=== PATIENT | female | born 1990 | race Caucasian/White ===

== ENCOUNTER 2024-08-21 08:42 | Emergency (ER) | payer BC, SELFPAY ==
[2024-08-21] VITALS (15 sets, daily range): BP systolic 128–151; BP diastolic 82–103; PULSE 100–103; RESP 15–19; TEMP 36.4; O2SAT 98–100
[2024-08-21 09:30] LABS: BEDSIDEPREGUCG Negative (Negative)
[2024-08-21 09:36] LABS: Basophils Absolute Auto 0.1 K/mm3 (0.0-0.1); Basophils Percent Auto 0.6 % (0.2-1.2); Eosinophils Percent Auto 0.2 % (0-4.4); Hemoglobin 12.7 g/dL (12.0-15.0); Immature Granulocyte Absolute 0.03 K/mm3 (0.00-0.031); Immature Granulocyte Percent A 0.4 % (0-0.5); Lymphocytes Absolute Auto 1.61 K/mm3 (0.9-3.2); Lymphocytes Percent Auto 18.9 % (18.3-44.2); Mean Corpuscular HGB Conc 32.6 g/dl (32-36); Mean Corpuscular Hemoglobin 26.7 pg (26-34); Mean Corpuscular Volume 82.1 fl (80-100); Monocytes Absolute Auto 0.5 K/mm3 (0.1-0.6); Monocytes Percent Auto 6.2 % (2.6-8.5); Neutrophils Absolute Auto 6.3 K/mm3 (1.3-6.7); Neutrophils Percent Auto 73.7 % (45.5-73.1); Platelet Count Result 344 k/mm3 (150-375); Red Blood Count 4.75 M/mm3 (4.2-5.4); Red Cell Distribution Width 13.1 % (11.5-14.5); White Blood Count 8.5 K/mm3 (4.5-10.0)
[2024-08-21 09:47] LABS: Alanine Aminotransferase 16 U/L (6-35); Albumin Level 5.1 g/dL (3.5-5.1); Alkaline Phosphatase 72 U/L (38-126); Anion Gap 18 mmol/L (4-12); Aspartate Amino Transferase 21 U/L (14-36); Blood Urea Nitrogen 12 mg/dL (7-17); Calcium 9.9 mg/dL (8.4-10.2); Carbon Dioxide 22 mmol/L (22-30); Chloride 100 mmol/L (98-107); Estimated CRCL calculation 124 ml/min; Estimated Glomerular Filt Rate > 60; Glucose 99 mg/dL (65-110); Potassium 3.4 mmol/L (3.4-5.0); Sodium 140 mmol/L (137-145)
[2024-08-21 09:50] LABS: Ethanol < 10 mg/dL (<10)
[2024-08-21 09:52] LABS: Add Urine Microscopic? YES; Appearance Urine Clear (Clear); Bacteria Urine None Seen /hpf; Bilirubin Urine Negative (Negative); Blood Urine Negative (Negative); Color Urine Dark Yellow (Yellow); Glucose Urine UA Negative (Negative); Ketones Urine 3+ mg/dL (Negative); Leukocyte Esterase Ur Negative LEU/UL (Negative); Need Manual Microscopic Reviewed; Nitrate Urine Negative (Negative); Non Pathogenic Casts 0-2; Protein Urine Trace mg/dL (Negative); RBC Urine 0-2 /hpf (0-2); Specific Grav Ur 1.031 (1.001-1.035); Squamous Epithelial Cell Urine Occasional /hpf (Few); Urobilinogen Urine 0.2 mg/dL (<2.0); WBC Urine 0-5 /hpf (0-3)
[2024-08-21 10:13] LABS: SARS-CoV-2 RNA PCR Negative (Negative)
[2024-08-21 10:18] LABS: Amphetamine Screen Urine Negative (Negative); Barbiturate Screen Urine Negative (Negative); Benzodiazepines Screen Urine Negative (Negative); Cannabinoid Screen Urine Negative (Negative); Cocaine Screen Urine Negative (Negative); Methadone Screen Urine Negative (Negative); Opiate Screen Urine Negative (Negative); Phencyclidine Screen Urine Negative (Negative)
--- NOTE | 2024-08-21 10:42 | ED_ITS ---
HPI - Psych General Chief Complaint: Psychiatric Symptoms Stated Complaint: out of it psychosis not sleeping Time Seen by Provider: 08/21/24 09:45 History of Present Illness HPI Narrative: Patient is a 34-year-old female who presents to the ER with complaints of anxiety and insomnia. She reports she has not slept more than 2 hours at a time in over 3 days. Patient identifies that her line of work has caused increased stress recently. She reports in March it was found that she has a neuroendocrine (pancreatic) tumor. Patient reports her tumor was resected and her gallbladder was removed at the same time. She reports she still has a ROSE drain in her abdomen, but is followed by Oncology at an outside facility. Patient denies any suicidal or homicidal ideation. She denies any chest pain, shortness of breath, back pain, recent fevers. Patient denies any use of drugs or alcohol. Related Data Allergies Allergy/AdvReac Type Severity Reaction Status Date / Time Penicillins Allergy Hives Verified 08/21/24 08:54 Review of Systems 2 Review of Systems: All systems reviewed & are unremarkable except as noted in HPI and below Exam 2 Narrative: GENERAL: Well appearing, well-nourished, non-toxic, in no acute distress. HEAD: Normocephalic, atraumatic. NECK: Supple. No adenopathy, no masses. RESPIRATORY: Airway patent, respirations nonlabored. Clear to auscultation bilaterally, no rales, rhonchi, wheezing. CARDIOVASCULAR: Regular rate and rhythm without murmurs, rubs, or gallops. Peripheral pulses 2+ and equal bilaterally. ABDOMINAL: Soft, nontender, nondistended, no hepatosplenomegaly. Normoactive BS. MUSCULOSKELETAL: Moves all extremities. Strength/ROM intact without gross deformities. SKIN: Warm, dry, normal color. No rashes. NEURO: A&O X3. Speech clear. Cranial nerves II-XII intact. No ataxic movements. PSYCHIATRIC: Very flat affect. Course Vital Signs Vital signs: Vital Signs Temperature 36.4 C L 08/21/24 08:45 Pulse Rate 103 H 08/21/24 08:45 Respiratory Rate 15 08/21/24 08:45 Blood Pressure 142/98 H 08/21/24 08:45 Pulse Oximetry 100 08/21/24 08:45 Oxygen Delivery Room Air 08/21/24 08:45 Temperature 36.4 C L 08/21/24 08:45 Pulse Rate 103 H 08/21/24 08:45 Respiratory Rate 15 08/21/24 08:45 Blood Pressure 128/82 08/21/24 11:31 Pulse Oximetry 98 08/21/24 11:31 Oxygen Delivery Room Air 08/21/24 08:45 MDM - Psych MDM Narrative Medical decision making narrative: Patient is a 34-year-old female who presents to the ER with complaints of anxiety and insomnia. She reports she has not slept more than 2 hours at a time in over 3 days. Patient identifies that her line of work has caused increased stress recently. She reports in March it was found that she has a neuroendocrine (pancreatic) tumor. Patient reports her tumor was resected and her gallbladder was removed at the same time. She reports she still has a ROSE drain in her abdomen, but is followed by Oncology at an outside facility. Patient denies any suicidal or homicidal ideation. She denies any chest pain, shortness of breath, back pain, recent fevers. Labs Ordered: CBC, CMP, TSH, UA, UDS, ethanol, COVID Imaging Ordered: None necessary Medications Ordered: Results: Patient's urine and CMP indicated mild dehydration Diagnosis: Depression, anxiety, insomnia, mild dehydration Consults: Psychiatry intake-advised pt follow-up with psychiatry outpatient Patient Education/Shared MDM: Results of blood work shared with patient. She endorses improvement following medication administration. Patient strongly advised to maintain hydration status upon discharge and follow-up with her PCP as soon as possible. She also has plans to follow-up with a psychiatrist as an outpatient. She will be discharged home with a prescription for Ativan 0.5 mg to help with her anxiety and insomnia until she sees her psychiatrist. Strict return precautions provided. Patient verbalized understanding is in agreement with plan. Vital signs stable at time of discharge. All questions answered. Differential Diagnosis Differential diagnosis: Likely acute psychosis, suicidal ideation, bipolar disorder, depression, drug-induced psychotic disorder and acute anxiety Lab Data Attestation: I reviewed the patient's lab results. 08/21/24 09:23 08/21/24 09:23 Labs: Lab Results 08/21/24 08/21/24 Range/Units 09:23 09:24 WBC 8.5 (4.5-10.0) K/mm3 RBC 4.75 (4.2-5.4) M/mm3 Hgb 12.7 (12.0-15.0) g/dL Hct 39.0 (37.0-47.0) % MCV 82.1 (80-100) fl MCH 26.7 (26-34) pg MCHC 32.6 (32-36) g/dl RDW 13.1 (11.5-14.5) % Plt Count 344 (150-375) k/mm3 MPV 11.0 H (7.4-10.4) fl Immature Gran % (Auto) 0.4 (0-0.5) % Neut % (Auto) 73.7 H (45.5-73.1) % Lymph % (Auto) 18.9 (18.3-44.2) % [place] % (Auto) 6.2 (2.6-8.5) % Eos % (Auto) 0.2 (0-4.4) % Baso % (Auto) 0.6 (0.2-1.2) % Lymph # (Auto) 1.61 (0.9-3.2) K/mm3 [place] # (Auto) 0.5 (0.1-0.6) K/mm3 Eos # (Auto) 0.0 (0-0.3) K/mm3 Baso # (Auto) 0.1 (0.0-0.1) K/mm3 Abs Immat Gran (auto) 0.03 (0.00-0.031) K/mm3 Absolute Neuts (auto) 6.3 (1.3-6.7) K/mm3 Absolute Nucleated RBC 0.000 (0.0-0.012) K/mm3 Nucleated RBC % 0.0 (0.0-0.2) % Sodium 140 (137-145) mmol/L Potassium 3.4 (3.4-5.0) mmol/L Chloride 100 (98-107) mmol/L Carbon Dioxide 22 (22-30) mmol/L Anion Gap 18 H (4-12) mmol/L BUN 12 (7-17) mg/dL Creatinine 0.51 L (0.7-1.0) mg/dL Estim Creat Clear Calc 124 ml/min Estimated GFR > 60 (59 - ) Glucose 99 (65-110) mg/dL Calcium 9.9 (8.4-10.2) mg/dL Total Bilirubin 1.0 (0.2-1.3) mg/dL AST 21 (14-36) U/L ALT 16 (6-35) U/L Alkaline Phosphatase 72 (38-126) U/L Total Protein 8.0 (6.3-8.2) g/dL Albumin 5.1 (3.5-5.1) g/dL TSH (Reflex) 1.200 (0.465-4.68) uIU/mL Urine Color Dark yellow (Yellow) Urine Appearance Clear (Clear) Urine pH 6.0 (5.0-9.0) Ur Specific [place] 1.031 (1.001-1.035) Urine Protein Trace (Negative) mg/dL Urine Glucose (UA) Negative (Negative) mg/dL Urine Ketones 3+ H (Negative) mg/dL Ur Blood (Man) Negative (Negative) Urine Nitrate Negative (Negative) Urine Bilirubin Negative (Negative) Urine Urobilinogen 0.2 (<2.0) mg/dL Add Ur Microanalysis Reviewed Leukocyte Esterase Rfl Negative (Negative) ANDRE/UL Urine RBC 0-2 (0-2) /hpf Urine WBC 0-5 (0-3) /hpf Ur Squamous Epith Cells Occasional (Few) /hpf Urine Bacteria None seen /hpf Urine Casts 0-2 POC Urine HCG, Qual Negative (Negative) Urine Opiates Screen Negative (Negative) Urine Methadone Screen Negative (Negative) Ur Barbiturates Screen Negative (Negative) Ur Phencyclidine Scrn Negative (Negative) Ur Amphetamine Screen Negative (Negative) U Benzodiazepines Scrn Negative (Negative) Urine Cocaine Screen Negative (Negative) U Cannabinoids Screen Negative (Negative) Ethyl Alcohol < 10 (<10) mg/dL SARS-CoV-2 RNA (RT-PCR) Negative (Negative) Discharge Plan Discharge Clinical Impression: Depression, Anxiety, Insomnia, Dehydration, mild Patient Disposition: Home, Self-Care Condition: Stable Instructions: Depression (ED), Insomnia (ED), Anxiety (ED), Antibiotic Form Additional Instructions: Please return to the ER with any worsening symptoms. Follow-up with your primary care provider as soon as possible. Please follow-up with Psychiatry as discussed. Take all medications as prescribed, including regularly scheduled medications. Patient Language: Algerian Prescriptions: New hydroxyzine HCl 25 mg tablet 25 mg PO TID PRN (Reason: anxiety) Qty: 20 0RF lorazepam [Ativan] 0.5 mg tablet 0.5 mg PO TID PRN (Reason: anxiety) Qty: 10 0RF Follow-up/Referrals: UNKNOWN,DOCTOR [Primary Care Provider] - Stand Alone Forms: Work/School Release IP Time of Disposition: 12:56
--- OUTSIDE RECORDS SUMMARY | 2024-08-21 11:35 | XMS_ITS | Clinical Summary ---
Author Organization [facility] [employer] Address [address] [place] [address] Care Team Providers Care Chain Pegger Name Role Phone Mayco Mixon DO Primary Care Provider [phone] Source Comments [facility] [employer],non-owned Affiliates and Associated Physician Practices is amultiple site organization consisting of ambulatory clinics and hospital sitesin [place], [place], [place] and [place]. This disclosure is being madepursuant to the Care Everywhere program and may not contain all information available regarding this patient. Last updated 18.[facility] [employer] Allergies Active Allergy Reactions Criticality Noted Date Comments Cefdinir Urticaria,Rash Medium 09/27/2022 Penicillins Urticaria Medium 09/24/2022 Medications * Be aware that medications may not be up to date on this document. Alwaysverify current medications with the patient. Medication Sig Dispensed Refills Start Date End Date Status acetaminophen (Tylenol) 500 MG tablet Take 2 (two) tablets by mouth every 6 hours Maximum allowable Acetaminophen amount = 4 Grams (4000 mg) / 24 hours. 30 tablet 08/09/19 25 Active acetaminophen (Tylenol) 500 MG tablet Take 1 (one) tablet by mouth every 4 hours as needed Maximum allowable Acetaminophen amount = 4 Grams (4000 mg) / 24 hours. 05/19/20 24 025 Discontinued(Do se Adjustment) oxyCODONE (Oxy-Ir) 5 MG capsule Take 1 (one) capsule by mouth every 6 hours as needed 025 Discontinued(Do se Adjustment) acetaminophen (Tylenol) 325 MG tablet Take 2 (two) tablets by mouth every 6 hours as needed for Pain (Please take round the clock every 6 hours for next 3 days and then as needed.) Maximum allowable Acetaminophen amount = 4 Grams (4000 mg) / 24 hours. 35 tablet 1 07/24/19 025 Discontinued(Do se Adjustment) ondansetron, disintegrating, (Zofran ODT) 4 MG tablet Take 1 (one) tablet by mouth every 8 hours as needed for Nausea/Vomiting Allow tablet to dissolve on the tongue 5 tablet 07/24/19 025 Discontinued(Li st Clean-Up) docusate sodium (Colace) 100 MG capsule Take 1 (one) capsule by mouth 2 times daily for 10 days Stop taking this medication if you have having liquid bowel movement. 20 capsule 07/24/19 025 Discontinued methocarbamol (Robaxin) 500 MG tablet Take 2 (two) tablets by mouth every 8 hours for 10 days 60 tablet 07/24/19 025 Discontinued(Do se Adjustment) senna (Senokot) 8.6 MG tablet Take 1 (one) tablet by mouth once daily 7 tablet 07/24/19 025 Discontinued(Li st Clean-Up) polyethylene glycol 3350 (Miralax) 17 GM/SCOOP powder Take 17 (seventeen) g by mouth 2 times daily Stop taking it if you are having diarrhea or any liquid bowel movement. 238 g 1 07/24/19 025 Discontinued(Do se Adjustment) magnesium citrate 1.745 GM/30ML Take 30 mL by mouth as needed (Only take tomorrow afternoon if you do not have any bowel movement with other bowel regimen. Only take half of it 15 cc at one time. If you do not have any stool for 4 hours take the other half.) 60 mL 07/24/19 025 Discontinued(Li st Clean-Up) oxyCODONE, immediate release, (Roxicodone) 5 MG tabletIndications: Acute cholecystitis,Prim linsey pancreatic neuroendocrine tumor (HCC) Take 1 (one) tablet by mouth every 6 hours as needed (for severe pain) 18 tablet 07/24/19 025 Discontinued(Do se Adjustment) oxyCODONE, immediate release, (Roxicodone) 5 MG tabletIndications: Primary pancreatic neuroendocrine tumor (HCC) Take 1 (one) tablet by mouth every 4 hours as needed 12 tablet 08/09/19 25 025 Discontinued(Li st Clean-Up) fluconazole (Diflucan) 200 MG tablet Take 1 (one) tablet by mouth once for 1 dose 1 tablet 08/09/19 25 025 docusate sodium (Colace) 100 MG capsule Take 1 (one) capsule by mouth 2 times daily for 10 days Stop taking this medication if you have having liquid bowel movement. 20 capsule 08/09/19 25 025 Discontinued(Li st Clean-Up) polyethylene glycol 3350 (Miralax) 17 GM/SCOOP powder Take 17 (seventeen) g by mouth once daily 510 g 1 08/09/19 25 025 Discontinued(Li st Clean-Up) metoclopramide (Reglan) 10 MG tablet Take 1 (one) tablet by mouth 3 times daily before meals 30 tablet 1 08/09/19 25 025 Discontinued(Li st Clean-Up) methocarbamol (Robaxin) 750 MG tablet Take 1 (one) tablet by mouth every 8 hours 21 tablet 08/09/19 25 025 Discontinued(Li st Clean-Up) ciprofloxacin (Cipro) 500 MG tablet Take 1.5 (one and one-half) tablets by mouth 2 times daily for 7 days 21 tablet 08/09/19 25 025 metroNIDAZOLE (Flagyl) 500 MG tablet Take 1 (one) tablet by mouth every 8 hours for 7 days 21 tablet 08/09/19 25 025 Active Problems Problem Noted Date Diagnosed Date Calculus of GB w acute and c hronic cholecyst w/o obstruction 07/22/2024 Primary pancreatic neuroendocrine tumor 05/17/20 24 Hypokalemia 05/17/2024 Hyponatremia 05/17/2024 Hypoalbuminemia 05/17/2024 Normocytic anemia 05/17/2024 Encounters Date Type Department Care Team Description 08/16/2024 10:15 AM CDT Office Visit [facility] - General Surgery [address] [place] [phone] Charley Thakkar MD Neuroendocrine tumor (Primary Dx) 08/16/2024 Travel 08/09/2024 Transitional Care [facility] CARE COORDINATION [address] [place] [address] Carolyn Perkins, BOBBI Transitions Of Care 08/08/2024 Telephone [facility] ENDOSCOPY [address] [place] [address] Katy Armendariz Procedure (Ercp 2 month follow up, Dr. Simental) 08/07/2024 2:53 PM CDT - 08/07/2024 3:53 PM CDT Surgery [facility] ENDOSCOPY [address] [place] [address] Teddy Ruvalcaba MD ERCP 08/07/2024 2:41 PM CDT Anesthesia Event [facility] ENDOSCOPY [address] [place] [address] Ray Pinon MD Kutrubs, Nicholas A, Anes Asst 08/03/2024 11:16 PM HAND ETCHER - 08/08/2024 12:34 PM CDT Hospital Encounter [facility] SHORT STAY UNIT [address] [place] [address] Sejal Jones MD Keller, Jennifer, MD Colorectal Surgery Discharge Disposition: Home or Self Care 08/03/2024 Travel 08/03/2024 Telephone [facility] - General Surgery [address] [facility] [place] [address] Charley Thakkar MD Abnormal Lab 08/02/2024 11:15 AM HAND ETCHER Office Visit [facility] - General Surgery [address] [place] [address] Charley Thakkar MD Neuroendocrine tumor (Primary Dx) 08/02/2024 Travel 07/21/2024 7:49 AM HAND ETCHER Anesthesia Event [facility] CIRILO OP [address] [place] [address] Farzad Hill MD Alpert, Alison M, MD 07/21/2024 7:00 AM HAND ETCHER - 07/21/2024 3:00 PM HAND ETCHER Surgery [facility] CIRILO OP [address] [place] [address] Charley Thakkar MD robotic pancreatic enucleation SUBTOTAL cholecystectomy 07/21/2024 5:50 AM HAND ETCHER - 07/24/2024 10:55 AM HAND ETCHER Hospital Encounter [facility] 7S ACUTE [address] [place] [address] Charley Thakkar MD Surgery General Discharge Disposition: Home or Self Care 07/21/2024 Travel 07/11/2024 1:26 PM HAND ETCHER - 07/11/2024 11:59 PM HAND ETCHER Hospital Encounter [facility] LAB OP DRAW STATION [address] [place] [address] Kassandra Thakkar, SPA EXPERIENCE COORDINATOR-SENIOR NUCLEAR MEDICINE TECHNOLOGIST Discharge Disposition: Home or Self Care 07/11/2024 12:30 PM HAND ETCHER - 07/11/2024 1:25 PM HAND ETCHER Hospital Encounter [facility] PAT [address] [place] [address] Kassandra Thakkar, SPA EXPERIENCE COORDINATOR-SENIOR NUCLEAR MEDICINE TECHNOLOGIST Ophthalmology Discharge Disposition: Home or Self Care 07/11/2024 Travel 06/26/2024 Telephone [facility] - General Surgery [address] [place] [phone] Charley Thakkar MD Surgery Scheduling 06/22/2024 10:00 AM HAND ETCHER Office Visit [facility] - General Surgery [address] [place] [phone] Charley Thakkar MD Neuroendocrine tumor (Primary Dx) 06/22/2024 8:33 AM HAND ETCHER - 06/22/2024 11:59 PM HAND ETCHER Hospital Encounter [facility] PET [address] [place] [address] Charley Thakkar MD Discharge Disposition: Home or Self Care 06/22/2024 8:15 AM HAND ETCHER - 06/22/2024 8:32 AM HAND ETCHER Hospital Encounter [facility] PET [address] [place] [address] Charley Thakkar MD Discharge Disposition: Home or Self Care 06/22/2024 Travel 06/06/2024 Telephone [facility] - Hematology/Oncolo gy [address] [place] [address] Soy Christianson MA Appointment (Patient is in ER) 05/26/2024 Telephone Transitional Care at [address] [address] Kisha Ortega, RN Reminder Call (/) 05/23/2024 Telephone Transitional Care at [address] [address] 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 Never 08/04/2024 Q2: How many drinks containi ng alcohol do you have on a typical day when you are drinking? Patient does not drink Q3: How often do you have si x or more drinks on one occasion? Never 08/04/2024 Overall Financial Resource Strain (CARDIA) Answe r Date Recorded How hard is it for you to pa y for the very basics like food, housing, medical care, and heating? Not very hard 08/04/2024 [facility] [place] of Occupat ional Health - Occupational Stress Questionnaire Answer Date Recorded Do you feel stress - tense, restless, nervous, or anxious, or unable to sleep at night because your mind is troubled all the time - these days? Not at all 08/04/2024 Hunger Vital Sign Answer Date Recorded Within the past 12 months, y ou worried that your food would run out before you got the money to buy more. Never true 08/05/19 25 Within the past 12 months, t he food you bought just didn't last and you didn't have money to get more. Never true 08/04/2024 PRAPARE - Transportation Answer Date Re corded In the past 12 months, has l ack of transportation kept you from medical appointments or from getting medications? No 11/2024 In the past 12 months, has l ack of transportation kept you from meetings, work, or from getting things needed for daily living? No 08/04/2024 Housing Stability Vital Sign Answer Lacho e Recorded In the last 12 months, was t here a time when you were not able to pay the mortgage or rent on time? No 08/04/2024 In the past 12 months, how m any times have you moved where you were living? 0 08/04/2024 At any time in the past 12 m [facility], were you homeless or living in a long-term (including now)? No 08/04/2024 Sex and Gender Information Value Date Recorded Sex Assigned at Not on file Gender Identity Not on file Sexual Orientation Not on file Last Filed Vital Signs Vital Sign Reading Time Taken Comments Blood Pressure 127/89 08/16/2024 9:57 AM CDT Pulse 92 08/16/2024 9:57 AM CDT Temperature 36.8 C (98.2 F) 08/08/2024 11:23 AM CDT Respiratory Rate 16 08/16/2024 9:57 AM CDT Oxygen Saturation 100% 08/16/2024 9:57 AM CDT Inhaled Oxygen Concentration - - Weight 81.6 kg (180 lb) 08/16/2024 9:57 AM CDT Height 170.2 cm (5' 7 ) 08/16/2024 9:57 AM CDT Body Mass Index 28.19 08/16/2024 9:57 AM CDT Plan of Treatment Upcoming Encounters Date Type Department Care Team (Latest Contact Info) Description 10/09/2024 11:00 AM CDT Hospital Encounter [facility] ENDOSCOPY [address] [place] [address] Teddy Ruvalcaba MD [facility] [place] [address] Surgery General 10/09/2024 11:00 AM CDT - 10/09/2024 12:00 PM CDT Surgery [facility] ENDOSCOPY [address] [place] [address] Teddy Ruvalcaba MD [address] [facility] [address] [facility] [place] [address] ENDOSCOPIC RETROGRADE CHOLANGIOPANCREATOGRAPHY (ERCP) Scheduled Procedures Name Priority Associated Diagnoses Date/Ti me ENDOSCOPIC RETROGRADE CHOLANGIOPANCREATOGRAPHY (ERCP) Encounter for removal of pancreatic stent 10/09/2024 11:00 AM CDT Health Maintenance Due Date Last Done Comments PAP SMEAR 1988 DTAP/TDAP/TD VACCINES (1 - Tdap) 01/24/2007 HEPATITIS B VACCINE (1 of 3 - 19+ 3-dose series) 01/24/2007 COVID-19 VACCINE (2023-2 5 season) 2024 02/13/2021, 01/16/2021 INFLUENZA VACCINE (#1) 2024 DEPRESSION SCREENING 05/31/2024 ZOSTER VACCINE (1 of 2) 01/24/2038 HIV SCREENING Completed 07/19/2022, 04/01/2022 HEPATITIS C SCREENING Completed 04/30/2024 HIB VACCINE Aged Out No longer eligi ble based on patient's age to complete this topic HPV VACCINE Aged Out No longer eligi ble based on patient's age to complete this topic MENINGOCOCCAL (Group B) VACCINE SHARED DECISION-MAKING Aged Out No longer eligible based on patient's age to complete this topic MENINGOCOCCAL GROUPS A/C/Y/W VACCINE Aged Out No longer eligible b ased on patient's age to complete this topic PNEUMOCOCCAL VACCINE Aged Out No long er eligible based on patient's age to complete this topic Medical Devices Implanted Type Area Senior Production Manager Device Identifier Shelf Expiration Date Model / Serial / Lot Stent Pncr 7fr 7cm .035in Gw Pstn Slv Implanted:Qty: 1 on 08/07/2024 by Teddy Ruvalcaba MD at [facility] N/A: Pancreas [employer] [id number] 12/10/2024 [id number] / / [id number] Description:PD Stent Biliary 10fr 7cm Ddnl Bnd Temp Rap Implanted:Qty: 1 on 08/07/2024 by Teddy Ruvalcaba MD at [facility] N/A: Bile Duct [facility] [id number] 03/21/2026 [id number] / / [id number] Procedures Procedure Name Priority Date/Time Associated Diagnosis Comments CT ABDOMEN PELVIS W CONTRAST STAT 08/08/2024 9:14 AM CDT Primary pancreatic neuroendocrine tumor MAGNESIUM BLOOD Routine 08/08/2024 12:45 AM CDT PHOSPHORUS BLOOD Routine 08/08/2024 12:45 AM CDT BASIC METABOLIC PANEL (CALCIUM TOTAL) AM Draw 08/08/2024 12:45 AM CDT CBC W/O DIFFERENTIAL AM Draw 08/08/2024 12:45 AM CDT HEPATIC FUNCTION PANEL Timed 08/08/2024 12:45 AM CDT IN ERCP,SPHINCTER PRESS MEASURMT 08/07/2024 2:36 PM CDT Pancreatic duct leak ERCP Routine 08/07/2024 2:14 PM CDT HEPATIC FUNCTION PANEL Timed 08/07/2024 2:27 AM CDT MAGNESIUM BLOOD Routine 08/07/2024 2:27 AM CDT PHOSPHORUS BLOOD Routine 08/07/2024 2:27 AM CDT BASIC METABOLIC PANEL (CALCIUM TOTAL) AM Draw 08/07/2024 2:27 AM CDT CBC W/O DIFFERENTIAL AM Draw 08/07/2024 2:27 AM CDT EKG 12-LEAD Routine 08/06/2024 12:17 PM CDT Primary pancreatic neuroendocrine tumor Hypokalemia HEPATIC FUNCTION PANEL Timed 08/06/2024 12:38 AM HAND ETCHER HEPATIC FUNCTION PANEL Timed 08/05/2024 10:40 AM HAND ETCHER PHOSPHORUS BLOOD Routine 08/05/2024 10:40 AM HAND ETCHER MAGNESIUM BLOOD Routine 08/05/2024 10:40 AM HAND ETCHER CBC W/O DIFFERENTIAL Routine 08/05/2024 10:40 AM HAND ETCHER BASIC METABOLIC PANEL (CALCIUM TOTAL) Routine 08/05/2024 10:[address] ABDOMEN PELVIS W CONTRAST STAT 08/04/2024 4:25 AM HAND ETCHER Primary pancreatic neuroendocrine tumor HCG BETA BLOOD QUANTITATIVE STAT 08/04/2024 12:59 AM HAND ETCHER LACTIC ACID BLOOD STAT 08/04/2024 12:59 AM HAND ETCHER LIPASE BLOOD STAT 08/04/2024 12:59 AM HAND ETCHER COMPREHENSIVE METABOLIC PANEL STAT 08/04/2024 12:59 AM HAND ETCHER CBC W AUTO DIFFERENTIAL STAT 08/04/2024 12:59 AM HAND ETCHER BILIRUBIN BODY FLUID Routine 08/02/2024 11:41 AM HAND ETCHER Neuroendocrine tumor LIPASE BODY FLUID STL Routine 08/02/2024 11:41 AM HAND ETCHER Neuroendocrine tumor AMYLASE BODY FLUID Routine 08/02/2024 11:41 AM HAND ETCHER Neuroendocrine tumor BASIC METABOLIC PANEL (CALCIUM TOTAL) Routine 07/24/2024 4:33 AM HAND ETCHER CBC W AUTO DIFFERENTIAL Routine 07/24/2024 4:33 AM HAND ETCHER HEPATIC FUNCTION PANEL Routine 07/24/2024 4:33 AM HAND ETCHER PHOSPHORUS BLOOD Routine 07/24/2024 4:33 AM HAND ETCHER MAGNESIUM BLOOD Routine 07/24/2024 4:33 AM HAND ETCHER BASIC METABOLIC PANEL (CALCIUM TOTAL) Routine 07/23/2024 5:35 AM HAND ETCHER CBC W AUTO DIFFERENTIAL Routine 07/23/2024 5:35 AM HAND ETCHER HEPATIC FUNCTION PANEL Routine 07/23/2024 5:35 AM HAND ETCHER PHOSPHORUS BLOOD Routine 07/23/2024 5:35 AM HAND ETCHER MAGNESIUM BLOOD Routine 07/23/2024 5:35 AM HAND ETCHER LIPASE BODY FLUID STL STAT 07/22/2024 2:21 PM HAND ETCHER Neuroendocrine tumor Primary pancreatic neuroendocrine tumor BILIRUBIN BODY FLUID STAT 07/22/2024 2:21 PM HAND ETCHER Neuroendocrine tumor Primary pancreatic neuroendocrine tumor AMYLASE BODY FLUID STAT 07/22/2024 2: 21 PM HAND ETCHER Primary pancreatic neuroendocrine tumor HEPATIC FUNCTION PANEL Timed 07/22/2024 9:55 AM HAND ETCHER PHOSPHORUS BLOOD Timed 07/22/2024 9:55 AM HAND ETCHER MAGNESIUM BLOOD Timed 07/22/2024 9:55 AM HAND ETCHER BASIC METABOLIC PANEL (CALCIUM TOTAL) Timed 07/22/2024 9:55 AM HAND ETCHER CBC W AUTO DIFFERENTIAL Timed 07/22/2024 9:54 AM HAND ETCHER PT EVAL AND TREAT Routine 07/22/2024 8:4 8 AM HAND ETCHER OT EVAL AND TREAT Routine 07/22/2024 8:4 8 AM HAND ETCHER PHOSPHORUS BLOOD STAT 07/21/2024 12:16 PM HAND ETCHER MAGNESIUM BLOOD STAT 07/21/2024 12:16 PM HAND ETCHER BASIC METABOLIC PANEL (CALCIUM TOTAL) STAT 07/21/2024 12:16 PM HAND ETCHER CBC W AUTO DIFFERENTIAL STAT 07/21/2024 12:16 PM HAND ETCHER HEPATIC FUNCTION PANEL STAT 07/21/2024 12:16 PM HAND ETCHER ARTERIAL LINE NOTE Routine 07/21/2024 10:05 AM HAND ETCHER PATHOLOGY TISSUE Routine 07/21/2024 9:44 AM HAND ETCHER Neuroendocrine tumor NEURAXIAL BLOCK Routine 07/21/2024 8:50 AM HAND ETCHER ENDOTRACHEAL TUBE NOTE Routine 07/21/2024 8:43 AM HAND ETCHER BLOOD GAS+COOX+LYTES+META B ARTERIAL POCT Routine 07/21/2024 8:37 AM HAND ETCHER BLOOD GAS ART+LYTES+METAB+PERSONNEL ARBITRATOR X POC NOTIF STAT 07/21/2024 8:29 AM HAND ETCHER Acute cholecystitis IN CUMULATIVE EFFECTS ANALYST RQR USE ROBOTIC SURG SYS 07/21/2024 7:19 AM HAND ETCHER Neuroendocrine tumor Case Notes Reviewed 07/18 Special Needs 07/12 [place] confirmed [id number] [ultrasound] TYPE + SCREEN PANEL STAT 07/21/2024 6 :22 AM HAND ETCHER Pre-op evaluation HCG URINE QUALITATIVE - POCT (IP) INTERFACED Routine 07/21/2024 6:03 AM HAND ETCHER HCG URINE QUAL POCT NOTIFICATION STAT 07/21/2024 5:52 AM HAND ETCHER Pre-op evaluation TYPE + SCREEN PANEL Routine 07/11/2024 1 :37 PM HAND ETCHER Pre-op evaluation PET CT CU64 NEUROENDO SKULL MID THIGH Routine 06/22/2024 10:22 AM HAND ETCHER Neuroendocrine tumor from Last 3 Months Results * CT Abdomen Pelvis W Contrast (08/08/2024 9:14 AM CDT) Only the most recent of2 resultswithin the time period is included. Anatomical Region Laterality Modality Abdomen, Pelvis Computed Tomogra phy 08/08/2024 9:56 AM CDT Impressions 08/08/2024 10:30 AM CDT Impression: 1.Redemonstration of postoperative changes of pancreatic uncinate process enucleation and partial cholecystectomy. Interval slightly decreased fat stranding and inflammatory changes at the surgical bed with stable 4.4 x 3.7 x 4.8 cm (AP x TV x CC) rim-enhancing fluid collection at the pancreas head which could again represent pseudocyst secondary to pancreas duct injury. 2.Interval slightly decreased wall thickening and enhancement of the distal stomach, duodenum, and colon in the hepatic flexure likely reactive to inflammatory changes in this region. The report was drafted by Yakov Hu MD (business services vice president) 08/08/2024 9:56 AM. I, Camille Rivera MD have personally reviewed and interpreted this examination/study. > Interpreting Provider: Camille Rivera MD on 08/08/2024 10:30 AM Narrative 08/08/2024 10:30 AM CDT PROCEDURE: CT ABDOMEN PELVIS W CONTRAST, DATE/TIME OF EXAM: 08/08/2024 9:15 AM, LOCATION [facility] INDICATION: D3A.8: Primary pancreatic neuroendocrine tumor (HCC) ADDITIONAL CLINICAL INFORMATION: Ordering Provider Reason For Exam: Assess the size of the collection COMPARISON: CT abdomen pelvis with contrast from 08/04/2024. TECHNIQUE: CT of the abdomen and pelvis was performed following the uneventful administration of 100 mL of Isovue 370 intravenous contrast according to standard protocol. Findings: Lower Chest: Mild bilateral dependent atelectasis is present in the visualized lung bases. Liver: Normal. Gallbladder and Bile Ducts: Status post cholecystectomy. Decreased periportal edema compared to prior exam. Air is seen within the bile ducts of left hemiliver, likely related to biliary stent. Interval placement of biliary and pancreatic stents. Spleen: Normal. Gastrointestinal, Pancreas, Mesentery/Peritoneum/Retroperitoneum: Redemonstration of postoperative changes of pancreatic uncinate process enucleation.Interval slightly decreased fat stranding and inflammatory changes at this region. There is a fluid collection with thin enhancing rim measuring 4.4 x 3.7 x 4.8 cm (AP x TV x CC, series 3 image 56 series 4 image 60), not significantly changed in size compared to prior exam. This could again represent a pseudocyst secondary to pancreas duct injury versus abscess formation. Interval slightly decreased wall thickening and inflammatory changes of distal stomach and duodenum. As well as colon at the hepatic flexure. These are likely reactive. Redemonstration of a percutaneous drain in the right abdomen terminating in the inferior aspect of the stomach along the greater curvature. Multiple prominent retroperitoneal and mesenteric lymph nodes. There is trace volume fluid present throughout the mesentery, decreased compared to prior exam. Hyperdense material within the small bowel loops and stomach lumen, likely representing ingested material or retained contrast. Adrenals: Normal. Kidneys: Normal. Bladder: Normal. Reproductive Organs: The uterus is normal. Vasculature: No vascular abnormality is present. Bones: Bone windows demonstrate no suspicious lytic or blastic lesions. The visible osseous structures are intact. Levocurvature of the lumbar spine. Soft tissues: Normal. Procedure Note Camille Rivera MD - 08/08/2024 PROCEDURE: CT ABDOMEN PELVIS W CONTRAST, DATE/TIME OF EXAM: 08/08/2024 9:15 AM, LOCATION [facility] INDICATION: D3A.8: Primary pancreatic neuroendocrine tumor (HCC) ADDITIONAL CLINICAL INFORMATION: Ordering Provider Reason For Exam: Assess the size of the collection COMPARISON: CT abdomen pelvis with contrast from 08/04/2024. TECHNIQUE: CT of the abdomen and pelvis was performed following the uneventful administration of 100 mL of Isovue 370 intravenous contrast according to standard protocol. Findings: Lower Chest: Mild bilateral dependent atelectasis is present in the visualized lung bases. Liver: Normal. Gallbladder and Bile Ducts: Status post cholecystectomy. Decreased periportal edema compared toprior exam. Air is seen within the bile ducts of left hemiliver, likelyrelated to biliary stent. Interval placement of biliary and pancreatic stents. Spleen: Normal. Gastrointestinal, Pancreas, Mesentery/Peritoneum/Retroperitoneum: Redemonstration of postoperative changes of pancreatic uncinate process enucleation.Interval slightly decreased fat stranding and inflammatory changes at this region. There is a fluid collection with thin enhancingrim measuring 4.4 x 3.7 x 4.8 cm (AP x TV x CC, series 3 image 56 series 4 image 60), not significantly changed in size compared to prior exam.This could again represent a pseudocyst secondary to pancreas duct injuryversus abscess formation. Interval slightly decreased wall thickening and inflammatory changes of distal stomach and duodenum. As well as colon at the hepatic flexure.These are likely reactive. Redemonstration of a percutaneous drain in the right abdomen terminatingin the inferior aspect of the stomach along the greater curvature. Multiple prominent retroperitoneal and mesenteric lymph nodes. There is trace volume fluid present throughout the mesentery, decreased comparedto prior exam. Hyperdense material within the small bowel loops and stomach lumen,likely representing ingested material or retained contrast. Adrenals: Normal. Kidneys: Normal. Bladder: Normal. Reproductive Organs: The uterus is normal. Vasculature: No vascular abnormality is present. Bones: Bone windows demonstrate no suspicious lytic or blastic lesions. The visible osseous structures are intact. Levocurvature of the lumbarspine. Soft tissues: Normal. Impression: 1.Redemonstration of postoperative changes of pancreatic uncinateprocess enucleation and partial cholecystectomy. Interval slightly decreased fat stranding and inflammatory changes at the surgical bed with stable 4.4 x 3.7 x 4.8 cm (AP x TV x CC) rim-enhancing fluid collection at thepancreas head which could again represent pseudocyst secondary to pancreas duct injury. 2.Interval slightly decreased wall thickening and enhancement of thedistal stomach, duodenum, and colon in the hepatic flexure likely reactive to inflammatory changes in this region. The report was drafted by Yakov Hu MD (business services vice president) 08/08/2024 9:56 AM. I, Camille Rivera MD have personally reviewed and interpreted this examination/study. > Interpreting Provider: Camille Rivera MD on 510:30 AM Charley Thakkar MD CT ORDERABLES * (ABNORMAL) CBC W/O DIFFERENTIAL (08/08/2024 12:45 AM CDT) Only the most recent of3 resultswithin the time period is included. WBC 5.2 4.0 - 10.7 x10E9/L 08/08/2024 1:37 AM [facility] RBC Count 3.62(L) 3.90 - 5.20 x10E12/L 08/08/2024 1:37 AM [facility] Hemoglobin 9.7(L) 11.9 - 15.8 g/dL 08/08/2024 1:37 AM [facility] Hematocrit 29.5(L) 34.8 - 46.1 % 08/08/2024 1:37 AM [facility] MCV 81.5 80.0 - 98.0 fL 08/08/2024 1:37 AM [facility] MCH 26.8 26.7 - 33.6 pg 08/08/2024 1:37 AM [facility] MCHC 32.9 31.7 - 36.3 g/dL 08/08/2024 1:37 AM [facility] RDW-CV 12.9 11.3 - 14.8 % 08/08/2024 1:37 AM [facility] Platelet Count 301 150 - 420 x10E9/L 08/08/2024 1:37 AM [facility] MPV 10.5 7.8 - 11.4 fL 08/08/2024 1:37 AM [facility] Blood BLOOD SPECIMEN / Unknown Lab Venipuncture / Unknown 08/08/2024 12:45 AM CDT 08/08/2024 1:33 AM CDT Charley Thakkar MD LAB - HEMATOLOGY ORD ERABLES [facility] [address] [place] [phone], [facility] [phone] * (ABNORMAL) BASIC METABOLIC PANEL (CALCIUM TOTAL) (08/08/2024 12:45 AM CDT) Only the most recent of7 resultswithin the time period is included. BUN 5(L) 7 - 26 mg/dL 08/08/2024 1:59 AM [facility] Creatinine 0.56 0.56 - 0.96 mg/dL 08/08/2024 1:59 AM [facility] Sodium 140 136 - 145 mmol/L 08/08/2024 1:59 AM [facility] Potassium 3.6 3.5 - 4.5 mmol/L 08/08/2024 1:59 AM [facility] Chloride 109(H) 98 - 107 mmol/L 08/08/2024 1:59 AM [facility] CO2 25 22 - 29 mmol/L 08/08/2024 1:59 AM [facility] Glucose 96 70 - 99 mg/dL 08/08/2024 1:59 AM [facility] Calcium 8.7 8.4 - 10.2 mg/dL 08/08/2024 1:59 AM [facility] Anion Gap 6 6 - 16 08/08/2024 1:59 AM [facility] BUN/Creatinine Ratio 9 7 - 23 08/08/2024 1:59 AM [facility] Osmolality Calculated 287 275 - 295 mOsm/kg 08/08/2024 1:59 AM [facility] eGFR by CKD-EPI >90 >=90 mL/min/1.7 3 m2 08/08/2024 1:59 AM [facility] Blood BLOOD SPECIMEN / Unknown Lab Venipuncture / Unknown 08/08/2024 12:45 AM CDT 08/08/2024 1:34 AM CDT Charley Thakkar MD [facility] Organization Address City/State/[facility] Co de Phone Number [facility] [address] [place] [phone], [facility] [phone] * PHOSPHORUS BLOOD (08/08/2024 12:45 AM CDT) Only the most recent of7 resultswithin the time period is included. Phosphorus 3.7 2.9 - 5.1 mg/dL 08/08/2024 1:59 AM [facility] Blood BLOOD SPECIMEN / Unknown Lab Venipuncture / Unknown 08/08/2024 12:45 AM CDT 08/08/2024 1:34 AM CDT Charley Thakkar MD LAB - CHEMISTRY ALETA WINSTON [facility] [address] [place] [address], [facility] [phone] * (ABNORMAL) HEPATIC FUNCTION PANEL (08/08/2024 12:45 AM CDT) Only the most recent of8 resultswithin the time period is included. Protein Total 5.8(L) 6.0 - 8.3 g/dL 025 1:59 AM [facility] Albumin 3.1(L) 3.4 - 5.0 g/dL 08/08/2024 1:59 AM [facility] Bilirubin Total 0.3 0.2 - 1.2 mg/dL 07/29 1:59 AM [facility] Bilirubin Conjugated 0.1 0.1 - 0.5 mg/dL 08/08/2024 1:59 AM [facility] Bilirubin Unconjugated 0.2 Unconjugated Bilirubin is a calculated value: Reference ranges have not been established. mg/dL 08/08/2024 1:59 AM [facility] Alkaline Phosphatase 67 40 - 150 U/L 08/08/2024 1:59 AM [facility] ALT 12 5 - 55 U/L 08/08/2024 1:59 AM [facility] AST 14 5 - 34 U/L 08/08/2024 1:59 AM [facility] Albumin/Globulin Ratio 1.1 1.1 - 2.3 08/08/2024 1:59 AM [facility] Blood BLOOD SPECIMEN / Unknown Lab Venipuncture / Unknown 08/08/2024 12:45 AM CDT 08/08/2024 1:34 AM CDT Charley Thakkar MD LAB - CHEMISTRY ALETA WINSTON [facility] [address] [place] [address], [facility] [phone] * MAGNESIUM BLOOD (08/08/2024 12:45 AM CDT) Only the most recent of7 resultswithin the time period is included. Magnesium 1.9 1.6 - 2.6 mg/dL 08/08/2024 1:59 AM CDT [facility] Blood BLOOD SPECIMEN / Unknown Lab Venipuncture / Unknown 08/08/2024 12:45 AM CDT 08/08/2024 1:34 AM CDT Charley Thakkar MD LAB - CHEMISTRY ALETA WINSTON [facility] Organization Address City/State/ZIP Co de Phone Number [address] [address], [facility] [phone] * ERCP (08/07/2024 2:14 PM CDT) Report Endoscopy POC Endoscopy Department Report _ Patient Name: Cori Cheema Procedure Date: 08/07/2024 2:14 PM Date of : 1990 Classification: Inpatient Gender: Female Ethnicity: Not or Race: White _ Providers: Teddy Wood MD Referring MD: Inpatient Surgery Team Procedure: ERCP Indications: Pancreatic duct leak, Abnormal abdominal CT Medications: Monitored Anesthesia Care. See the Anesthesia note for documentation of the administered medications. IVFs w/ LR, Indomethacin 100 mg IN. Description of Procedure: After obtaining informed consent, the scope was passed under direct vision. Throughout the procedure, the patient's blood pressure, pulse, and oxygen saturations were monitored continuously. The duodenoscope was introduced through the mouth, and advanced to the duodenum and used to inject contrast into the bile duct and ventral pancreatic duct. The ERCP was accomplished without difficulty. The patient tolerated the procedure well. Findings: A assistant manager bilingual film of the abdomen was obtained. The esophagus was successfully intubated under direct vision without detailed examination of the upper GI tract given the use of a sideviewing duodenoscope. A biliary sphincterotomy had been performed. The sphincterotomy appeared open. A short 0.025 inch Visiglide guidewire was easily passed into the ventral pancreatic duct on first attempt. The ventral pancreatic duct was then cannulated with a short-nosed traction sphincterotome cannula over the guidewire. Contrast was injected. I personally interpreted the pancreatic duct images. Ductal flow of contrast was adequate. Image quality was adequate. Contrast extended to the pancreatic duct in the tail of pancreas region. The pancreatogram was unremarkable. Given cross-sectional imaging findings and contrast injection into the pancreatuc duct on this procedure, the decision was made to place a pancreatic duct stent. One 7 Fr by 7 cm transpapillary plastic stent with two external flaps and two internal flaps was placed into the ventral pancreatic duct. Fluid flowed through the stent. The stent was in good position. Given recent subtotal cholecystectomy and cross-sectional imaging findings, the decision was made to perform a cholangiogram. A second short 0.025 inch Visiglide guidewire was easily passed into the biliary tree on first attempt. A short-nosed traction sphincterotome cannula was passed over the biliary guidewire and the bile duct was then cannulated. Contrast was injected. I personally interpreted the bile duct images. Ductal flow of contrast was adequate. Image quality was adequate. Contrast extended to the main intrahepatic bile duct branches. The cholangiogram demonstrated moderate dilation of the extrahepatic biliary tree. One 10 Fr by 7 cm transpapillary plastic stent with a single external flap and a single internal flap was placed into the main bile duct. Bile flowed through the stent. The stent was in good position. Estimated Blood Loss: Estimated blood loss was minimal. Complications: No immediate complications. Impression: - Pre-existent patent biliary sphincterotomy. Cholangiogram with moderate extrahepatic biliary dilation. - One 10 Fr by 7 cm transpapillary plastic stent placed into the main bile duct given recent surgery and interval cross-sectional imaging findings. - Unremarkable pancreatogram. - One 7 Fr by 7 cm transpapillary plastic stent placed into the ventral pancreatic duct given recent surgery and interval cross-sectional imaging findings. Moderate Sedation: . Recommendation: - Return to [facility] for ongoing care. Further management per Surgery team. - Monitor for fevers, bleeding, pain, jaundice. - Start clear liquid diet, and if pain free this evening advance as tolerated. - Resume previous medications today. - Plan for repeat ERCP in 2 months for stent removal. - The potential complications and concerning symptoms/findings, including but not limited to early or delayed fevers, infection, pain, bleeding, perforation, pancreatitis, stent migration/obstruction were discussed with the patient/caregiver. Emergency contact information was provided. Attending Participation: I personally performed the entire procedure. Procedure Code(s): --- Professional --- 81831, Endoscopic retrograde cholangiopancreatography (ERCP); with placement of endoscopic stent into biliary or pancreatic duct, including pre- and post-dilation and guide wire passage, when performed, including sphincterotomy, when performed, each stent [id number], 59, Endoscopic retrograde cholangiopancreatography (ERCP); with placement of endoscopic stent into biliary or pancreatic duct, including pre- and post-dilation and guide wire passage, when performed, including sphincterotomy, when performed, each stent [id number], Endoscopic catheterization of the pancreatic ductal system, radiological supervision and interpretation Diagnosis Code(s): --- Professional --- K86.89, Other specified diseases of pancreas K83.8, Other specified diseases of biliary tract R93.5, Abnormal findings on diagnostic imaging of other abdominal regions, including retroperitoneum CPT copyright 202 [employer]. All rights reserved. The codes documented in this report are preliminary and upon medical records coder review may be revised to meet current compliance requirements. Teddy Wood MD 08/07/2024 3:28:05 PM Note Initiated On: 08/07/2024 2:14 PM Number of Addenda: [address] PROVATION 08/07/2024 2:14 PM CDT Kapil Dasilva DO GI PROCEDURE ORDER BIANCA Performing Organization Address [facility] de Phone Number [facility] PROVATION * EKG 12-LEAD (08/06/2024 12:17 PM CDT) Ventricular Rate 63 BPM [facility]USE Atrial Rate 63 BPM [facility] P-R Interval 170 ms [facility] QRS Duration ms 82 ms [facility] Q-T Interval ms 408 ms H MUSE QTC Calculation (Bezet) 417 ms [facility] MUSE Calculated P [place] 42 degrees [facility] MUSE Calculated R [place] 19 degrees [facility] MUSE Calculated T [place] 9 degrees [facility] MUSE Interpretation EKG NORMAL SINUS RHYTHM NORMAL ECG NO PREVIOUS ECGS AVAILABLE Confirmed by MD ISABELLA, JAVIER ([id number]) on 08/06/2024 1:26:07 PM [facility] MUSE 08/06/2024 12:1 7 PM CDT 08/06/2024 1:26 PM CDT Charley Thakkar MD ECG ORDERABLES Performing Organization Address [facility] Phone Number [facility] MUSE * (ABNORMAL) CBC W AUTO DIFFERENTIAL (08/04/2024 12:59 AM HAND ETCHER) Only the most recent of5 resultswithin the time period is included. WBC 15.2(H) 4.0 - 10.7 x10E9/L 08/04/2024 1:16 AM [facility] RBC Count 3.90 3.90 - 5.20 x10E12/L 08/04/2024 1:16 AM [facility] Hemoglobin 10.8(L) 11.9 - 15.8 g/dL 08/04/2024 1:16 AM [facility] Hematocrit 31.6(L) 34.8 - 46.1 % 08/04/2024 1:16 AM [facility] MCV 81.0 80.0 - 98.0 fL 08/04/2024 1:16 AM [facility] MCH 27.7 26.7 - 33.6 pg 08/04/2024 1:16 AM [facility] MCHC 34.2 31.7 - 36.3 g/dL 08/04/2024 1:16 AM [facility] RDW-CV 13.2 11.3 - 14.8 % 08/04/2024 1:16 AM [facility] Platelet Count 247 150 - 420 x10E9/L 08/04/2024 1:16 AM [facility] MPV 11.0 7.8 - 11.4 fL 08/04/2024 1:16 AM [facility] Neutrophil % 87.2(H) 41.0 - 74.0 % 08/04/2024 1:16 AM [facility] Lymphocyte % 6.4(L) 17.0 - 47.0 % 08/04/2024 1:16 AM [facility] Monocyte % 5.5 3.0 - 11.0 % 08/04/2024 1:16 AM [facility] Eosinophil % 0.3 0.0 - 7.0 % 08/04/2024 1:16 AM [facility] Basophil % 0.2 0.0 - 1.6 % 08/04/2024 1:16 AM [facility] Immature Granulocytes % 0.4 0.0 - 1.0 % 08/04/2024 1:16 AM [facility] Neutrophil Absolute 13.21(H) 1.60 - 7.50 x10E9/L 08/04/2024 1:16 AM [facility] Lymphocyte Absolute 0.97(L) 1.00 - 4.40 x10E9/L 08/04/2024 1:16 AM [facility] Monocyte Absolute 0.84 0.15 - 1.00 x10E9/L 08/04/2024 1:16 AM [facility] Eosinophil Absolute 0.04 0.00 - 0.60 x10E9/L 08/04/2024 1:16 AM [facility] Basophil Absolute 0.03 0.00 - 0.13 x10E9/L 08/04/2024 1:16 AM [facility] Blood BLOOD SPECIMEN / Unknown Venipuncture / Unknown 08/04/2024 12:59 AM [facility] 08/04/2024 1:05 AM [facility] Sejal Jones MD LAB - HEMATOLOGY ORD ERABLES [facility] [address] [place] [address], [facility] [phone] * (ABNORMAL) COMPREHENSIVE METABOLIC PANEL (08/04/2024 12:59 AM [facility]) BUN 8 7 - 26 mg/dL 08/04/2024 1:29 AM [facility] Creatinine 0.49(L) 0.56 - 0.96 mg/dL 08/04/2024 1:29 AM [facility] Sodium 137 136 - 145 mmol/L 08/04/2024 1:29 AM [facility] Potassium 3.8 3.5 - 4.5 mmol/L 08/04/2024 1:29 AM [facility] Chloride 109(H) 98 - 107 mmol/L 08/04/2024 1:29 AM [facility] CO2 20(L) 22 - 29 mmol/L 08/04/2024 1:29 AM [facility] Glucose 103(H) 70 - 99 mg/dL 08/04/2024 1:29 AM [facility] Calcium 8.8 8.4 - 10.2 mg/dL 08/04/2024 1:29 AM [facility] Protein Total 6.3 6.0 - 8.3 g/dL 08/04/2024 1:29 AM [facility] Albumin 3.5 3.4 - 5.0 g/dL 08/04/2024 1:29 AM [facility] Bilirubin Total 0.8 0.2 - 1.2 mg/dL 08/04/2024 1:29 AM [facility] Alkaline Phosphatase 83 40 - 150 U/L 08/04/2024 1:29 AM [facility] ALT 22 5 - 55 U/L 08/04/2024 1:29 AM [facility] AST 15 5 - 34 U/L 08/04/2024 1:29 AM [facility] Anion Gap 8 6 - 16 08/04/2024 1:29 AM [facility] BUN/Creatinine Ratio 16 7 - 23 08/04/2024 1:29 AM [facility] Osmolality Calculated 283 275 - 295 mOsm/kg 08/04/2024 1:29 AM [facility] Albumin/Globulin Ratio 1.3 1.1 - 2.3 08/04/2024 1:29 AM [facility] eGFR by CKD-EPI >90 >=90 mL/min/1.7 3 m2 08/04/2024 1:29 AM [facility] Blood BLOOD SPECIMEN / Unknown Venipuncture / Unknown 08/04/2024 12:59 AM [facility] 08/04/2024 1:05 AM [facility] Sejal Jones MD LAB - CHEMISTRY ALETA WINSTON Performing Organization Address [facility]/ZIP Co de Phone Number [address] [address], [place] [phone] * HCG BETA BLOOD QUANTITATIVE (08/04/2024 12:59 AM [facility]) Beta-hCG Total Quantitative <3 mIU/mL 08/04/2024 3:48 AM [facility] Comment: HCG Numeric Result Interpretation: Non- Females: < 5 mIU/mL Post-Menopausal Females: < 7 mIU/mL This assay is cleared for use in the early detection of only. It is not approved for any other uses such as tumor marker screening, tumor marker monitoring, etc. and should not be used for any other purposes. Blood BLOOD SPECIMEN / Unknown Venipuncture / Unknown 08/04/2024 12:59 AM [facility] 08/04/2024 1:05 AM [facility] Sejal Jones MD LAB - CHEMISTRY ALETA WINSTON Performing Organization Address City/[facility]/ZIP Co de Phone Number [address] [address], [place] [phone] * LIPASE BLOOD (08/04/2024 12:59 AM HAND ETCHER) Lipase 36 8 - 78 U/L 08/04/2024 1:29 AM [facility] Blood BLOOD SPECIMEN / Unknown Venipuncture / Unknown 08/04/2024 12:59 AM [facility] 08/04/2024 1:05 AM HAND ETCHER Narrative [facility] - 08/04/2024 1:29 AM HAND ETCHER Lipase results from the [employer] Alinity analyzer may not be comparable with other methodologies. Sejal Jones MD LAB - CHEMISTRY ALETA WINSTON Performing Organization Address City/[facility]/ZIP Co de Phone Number [address] [address], [facility] [phone] * LACTIC ACID BLOOD (08/04/2024 12:59 AM HAND ETCHER) Lactic Acid-Stat 0.7 <=2.0 mmol/L 08/04/2024 1:29 AM [facility] Blood BLOOD SPECIMEN / Unknown Venipuncture / Unknown 08/04/2024 12:59 AM [facility] 08/04/2024 1:05 AM [facility] Sejal Jones MD LAB - CHEMISTRY ALETA WINSTON Performing Organization Address [facility]/ZIP Co de Phone Number [address] [address], [facility] [phone] * LIPASE BODY FLUID STL (08/02/2024 11:41 AM HAND ETCHER) Only the most recent of2 resultswithin the time period is included. Lipase Fluid 46,784 Not Established For Fluids Units/L 08/02/2024 6:06 PM [facility] Fluid Type Peritoneal Fluid 08/02/2024 6:06 PM [facility] Fluid PERITONEAL FLUID / Unknown Collection / Unknown 08/02/2024 11:41 AM HAND ET[facility]ER 08/02/2024 3:55 PM HAND ETCHER Narrative [facility] - 08/02/2024 6:06 PM HAND ETCHER The analytical performance of this test has been independently validated by the laboratory. A reference range has not been established for this fluid. Comparison of this result with the concentration in blood, serum or plasma is recommended. Charley Thakkar MD LAB - BODY FLUID ORD ERABLES Performing Organization Address City/[facility]/ZIP Co de Phone Number [address] [address], [place] [phone] * BILIRUBIN BODY FLUID (08/02/2024 11:41 AM HAND ETCHER) Only the most recent of2 resultswithin the time period is included. Bilirubin Fluid 0.2 Not Established For Fluids mg/dL 08/02/2024 4:42 PM HAND ETCHER [facility] Comment:The analytical perfo rmance of this test has been independently validated by [facility]. A reference range has not been established. Comparison of this result with the concentration in blood, serum or plasma is recommended. Fluid PERITONEAL FLUID / Unknown Collection / Unknown 08/02/2024 11:41 AM HAND ETCHER 08/02/2024 3:55 PM HAND ETCHER Charley Thakkar MD LAB - BODY FLUID ORD ERABLES Performing Organization Address [facility] Co de Phone Number [address] [address], [place] [phone] * AMYLASE BODY FLUID (08/02/2024 11:41 AM HAND ETCHER) Only the most recent of2 resultswithin the time period is included. Amylase Fluid 49,360 Not Established For Fluids Units/L 08/02/2024 5:16 PM HAND ETCHER [facility] Fluid Type Peritoneal Fluid 08/02/2024 5:16 PM [facility] Fluid PERITONEAL FLUID / Unknown Collection / Unknown 08/02/2024 11:41 AM HAND ET[facility]ER 08/02/2024 3:55 PM HAND ETCHER Narrative [facility] - 08/02/2024 5:16 PM HAND ETCHER The analytical performance of this test has been independently validated by the laboratory. A reference range has not been established for this fluid. Comparison of this result with the concentration in blood, serum or plasma is recommended. Charley Thakkar MD LAB - BODY FLUID ORD ERABLES [facility] [address] [place] [address], [facility] [phone] * ARTERIAL LINE PERFORMABLE (07/21/2024 10:05 AM HAND ETCHER) Narrative Farzad Hill MD - 07/21/2024 10:05 AM HAND ETCHER Farzad Hill MD 07/21/2024 10:10 AM Arterial Line Placement Procedure Note Insertion Time: 07/21/2024 8:11 AM Procedure: Arterial Line ([id number]) Procedure Section Indications: continuous blood pressure monitoring and blood sampling needed. Consent: informed consent was obtained for the procedure. Skin Prep: Chloraprep. Orientation: Left. Site: radial. Site Identification: palpation. Sterile Technique: sterile gloves, mask and cap. Gauge: 20. Catheter Length: 1 and 1/4 inch. Catheter Type: Arrow. Seldinger Technique Used? Yes Number of Attempts: 2. Line Secured with: tape. Procedure Tolerance: tolerated well. Events: none. Procedure Start Time: 07/21/2024 8:11 AM. Procedure End Time: 07/21/2024 8:13 AM. Procedure Total Time: 2 minutes. Patient Sedated? No (GETA) Local Anesthetic Used? No Staff Section Anesthesia Provider: Farzad Hill MD, Performed the procedure Provider #1: Ciarra Graham Anes Asst, Performed the procedure. Additional Comments: I was present the entire time and supervised placement of the L radial a-line Farzad Hill MD, [facility] Account Planner of Anesthesiology and Critical Care Medicine [facility] Firer Low Pressure Post Anesthesia Care Unit Firer Low Pressure Pre/Post Surgical Marine Engine Driver of Health Care Simulations - Anesthesiology supervisor vat house for Clinical Base Year Primary Specialty Advisor- [facility] Medical Student Clerkship Director for General Anesthesiology, Advanced Regional Elective, and Career Exploration Physician Oversight for Anesthesiology Scientific Affairs Manager Student Rotation and Education. Farzad Hill MD GENERAL ANESTHESIA O RDERABLES * PATHOLOGY TISSUE (07/21/2024 9:44 AM HAND ETCHER) Case Report Surgical Pathology Report Case: [id number] Authorizing Provider: Charley Thakkar MD Collected: 07/21/2024 09:44 AM Ordering Location: [facility] Received: 07/21/2024 12:51 PM Pathologist: Mattie Lindsay MD Specimens: A) - Soft Tissue Mass, Uncinate process mass B) - Gallbladder, GALLBLADDER 07/24/2024 4:38 PM [facility] PATH[facility] LAB Final Diagnosis Pancreas, uncinate process mass, enucleation (A): - Well-differentiated neuroendocrine tumor Gallbladder, cholecystectomy (B): - Acute and chronic cholecystitis - Cholelithiasis with mucosal ulceration and reactive changes 07/24/2024 4:38 PM [facility] Microscopic Description and Comment Histologic sections of the pancreas uncinate mass (part A) show a cauterized fragment of tissue mostly consisting of well-differentiated neuroendocrine tumor with marked cautery artifact, confirmed with positive staining for chromogranin (block A1, with appropriately staining controls). A small amount of adjacent benign pancreatic parenchyma is present, although neuroendocrine tumor is present in all cross-sections of tissue submitted (sectioned along 2.4 cm longest axis), and across the full cross-section of tumor in 1 direction (1.2 cm gross measurement), and nearly the full cross-section of tumor in the other direction (0.5 cm). Based on the gross and microscopic examination, the tumor is likely at least 2.4 cm in greatest dimension (pT2), but could represent smaller tumor ( pT1 if limited to pancreas) if the cauterized tissue is curled, or even represent larger tumor, given that the cauterized margin is widely positive for neuroendocrine tumor. Clinical correlation is needed for accurate staging. 07/24/2024 4:38 PM [facility] Clinical History The patient is a 34-year-old woman with acute cholecystitis requiring IR drainage and hypoattenuating uncinate process mass, previously biopsied to show well-differentiated neuroendocrine tumor. Operative procedure: Robotic assisted subtotal cholecystectomy and pancreatic enucleation 07/24/2024 4:38 PM [facility] Gross Description The requisition and specimen(s) are identified with the patient's name, Cori Cheema. Received in formalin, specimen A , is an unoriented 2.4 x 1.2 x 0.5 cm portion of red-brown to pink-deutsch, friable soft tissue, with a non-orienting suture present on one end. There is abundant cautery on one surface, that is inked black, and the opposing surface is pink-deutsch and friable. No distinct masses grossly identified. Sectioning shows a pink-deutsch and friable cut surface. The specimen is entirely submitted as cassettes A1-A2. Received in formalin, specimen B is a 3.2 x 2.1 x 1.6 cm partial portion of gallbladder. No cystic duct is identified. The gallbladder appears cut at the body and the resection margin is roughly cauterized. The serosa is red-purple, dusky and dull with abundant fibrous adhesions and a 0.9 x 0.7 cm deutsch-white, firm, slightly puckered area. The hepatic bed margin is deutsch-brown and roughened. Sectioning shows a lumen filled with multiple circular yellow gallstones. The mucosa is red, hemorrhagic and ragged. No polyps or masses are grossly identified. The gallbladder wall ranges from 0.3 to 0.5 cm in thickness and contains deutsch-white, firm potential fibrous tissue. A cross-section is submitted as cassette B1 and a portion with the puckered area is submitted as cassette B2. SARITA 07/24/2024 4:38 PM [facility] Pathologist Location at [facility] 07/24/2024 4:38 PM [facility] Disclaimer The performance characteristics of all immunohistochemical and indirect immunofluorescence stains (if any) cited in this report were determined by the Histopathology Laboratory of [facility]. Some of these tests were developed by our own laboratory and have not been cleared or approved by the US Food and Drug Administration. The FDA does not require this test to go through premarket FDA review. These tests are used for clinical purposes. They should not be regarded as investigational or for research. This laboratory is certified under the Clinical Laboratory Improvement Amendments (CLIA) as qualified to perform high complexity clinical laboratory testing. This case has been personally reviewed and interpreted by the attending (teaching) pathologist. 07/24/2024 4:38 PM [facility] Synoptic Report PANCREAS NEUROENDOCRINE TUMOR PANCREAS NEUROENDOCRINE TUMOR - All Specimens 9th Edition - Protocol posted: 11/17/2023 CLINICAL Clinical History: Not specified Functional Type of Pancreatic Neuroendocrine Tumor: Cannot be determined (functional status unknown) SPECIMEN Procedure: Excisional biopsy (enucleation) TUMOR Tumor Site: Uncinate process Histologic Type and Grade: G1, well-differentiated neuroendocrine tumor Histologic Type and Grade Comment: per Ki-67 IHC on prior biopsy (current specimen cauterized) Histologic Grade Determination: Ki-67 Labeling Index: Less than 3% Tumor Size: Cannot be determined: tumor present at margin; estimated size at least 2.4 cm Tumor Focality: Unifocal Site(s) Involved by Direct Tumor Extension: Cannot be determined Lymphatic and / or Vascular Invasion: Not identified Perineural Invasion: Not identified Tumor Comment: enucleation MARGINS Margin Status: Tumor present at margin Margin(s) Involved by Tumor: peripheral (radial) margin of enucleated tissue REGIONAL LYMPH NODES Regional Lymph Node Status: Not applicable (no regional lymph nodes submitted or found) pTNM CLASSIFICATION (AJCC Version 9) Reporting of pT, pN, and (when applicable) pM categories is based on information available to the pathologist at the time the report is issued. As per the AJCC (Chapter 1, 8th Ed.) it is the managing physician's responsibility to establish the final pathologic stage based upon all pertinent information, including but potentially not limited to this pathology report. pT Category: pT not assigned (cannot be determined based on available pathological information) pN Category: pN not assigned (no nodes submitted or found) 07/24/2024 4:38 PM [facility] Embedded Images 07/24/2024 4:38 PM [facility] Biopsy, Excision SOFT TISSUE MASS / Unknown 07/21/2024 9:44 AM HAND [facility]ER 07/21/2024 12:51 PM HAND [facility] Comment:Pre-op diagnosis: Neuroendocrine tumor (HCC) [D3A.8] - Primary Biopsy, Excision ENTIRE GALLBLADDER / Unknown 07/21/2024 11:13 AM HAND [facility]ER 07/21/2024 12:51 PM HAND [facility] Comment:Pre-op diagnosis: Neuroendocrine tumor (HCC) [D3A.8] - Primary Charley Thakkar MD LAB - PATHOLOGY/CYTO LOGY ORDERABLES [facility] [address] [phone] * EPIDURAL BLOCK PERF (07/21/2024 8:50 AM HAND ETCHER) Narrative Farzad Hill MD - 07/21/2024 8:50 AM HAND ETCHER Farzad Hill MD 07/21/2024 8:55 AM Neuraxial Block Note Pre-Procedure: Procedure Name: Neuraxial Block Patient Location: Pre-op Indications: at surgeon's request and postop pain management Pre-Anesthetic Checklist: Patient identified, IV Checked, Risks and benefits discussed, Surgical consent verified, Monitors and equipment, Site examined, Pre-op evaluation done, Time-out performed, Informed consent obtained, Questions answered/anesthesia questions answered and Allergies reviewed Anticoagulation/ Anti-thrombosis status confirmed? Yes Supplemental O2: nasal cannula Monitors: BP, continuous pluse ox and EKG Patient Condition: awake Patient Sedated? Yes Sedation Type: mild Sedation Agents: fentaNYL (PF) (SUBLIMAZE) injection - Intravenous 25 mcg - 07/21/2024 7:25:00 AM midazolam (VERSED) injection - Intravenous 2 mg - 07/21/2024 7:25:00 AM Procedure: Block Type: Epidural Prep: Chloraprep Sterile Field: mask, cap/hat, sterile established and sterile gloves Approach: midline Skin was localized? Yes Skin localized with: lidocaine (XYLOCAINE) 1 % injection - Infiltration 4 mL - 07/21/2024 7:15:00 AM Epidural Block: Is this procedure for postop pain? Yes Reason: anticipated postoperative pain Needle Type: Tuohy Needle gauge: 18 G Needle length: 90 mm Placement Site: Other - please comment (T10) Number of Attempts: 3 Loss of Resistance: 6 saline Catheter threaded to (cm): 20 Catheter length at skin (cm): 12 CSF Aspirated from catheter: No Blood Aspirated: No Test Dose: lidocaine 1.5% with 1-200,000 epinephrine 5 mL at 07/21/2024 7:25 AM Test Dose Response: No Epidural Local Anesthetic Used? No Degree of difficulty: none Procedure Tolerance: tolerated well Sensory Level: other - please comment (not done) Motor Blockade: No Position post procedure: head of bed elevated 30 degrees Vital Signs: Vital signs moniitored and stable throughout. See nursing vitals flowsheet for details. Start Time: 07/21/2024 7:15 AM End Time: 07/21/2024 7:39 AM Total Time: 24 Staff: Anesthesia Provider: Farzad Hill MD - performed the procedure Provider #1: Ray Chavez MD - performed the procedure Additional Notes: I was present the entire time and supervised epidural placement. For post op pain. Farzad Hill MD, NOELA Account Planner of Anesthesiology and Critical Care Medicine [facility] Firer Low Pressure Post Anesthesia Care Unit Firer Low Pressure Pre/Post Surgical Marine Engine Driver of Health Care Simulations - Anesthesiology supervisor vat house for Clinical Base Year Primary Specialty Advisor- [facility] Medical Student Clerkship Director for General Anesthesiology, Advanced Regional Elective, and Career Exploration Physician Oversight for Anesthesiology Scientific Affairs Manager Student Rotation and Education Farzad Hill MD GENERAL ANESTHESIA O VANESSA * ETT LINE PERFORMABLE (07/21/2024 8:43 AM HAND ETCHER) Narrative Ciarra Graham Anes Asst - 07/21/2024 8:43 AM HAND ETCHER Ciarra Graham Anes Asst 07/21/2024 8:46 AM Endotracheal Tube Placement: Patient Location: OR. Intubation Event Date/Time: 07/21/2024 8:01 AM Procedure: intubation (07759) Procedure Section: Sedation: under general anesthesia. Indications for Airway Management: anesthesia Procedure pretreatments used? No Induction: standard IV Patient Position: supine Mask Ventilation: easy. Blade Type: Hossein Blade Size: 3 Laryngoscopy View: grade 1 (full cords) Intubation Adjuncts: stylet Tube: endotracheal tube Placement: oral Tube type: cuff - inflated Tube Size (MM): 7 Depth of Insertion (CM): 20 Measured From: lips Cuff Inflated With: air Number of Attempts: 1. Placement Verified By: direct visualization, bilateral breath sounds, chest auscultation and CO2 monitor Tube secured with: adhesive tape. Dentition unchanged? Yes Difficult Airway? No. Procedure Start Time: 07/21/2024 8:01 AM. Staff Section Anesthesia Provider: Ciarra Graham Anes Asst, Performed the procedure Farzad Hill MD GENERAL ANESTHESIA O VNAESSA * (ABNORMAL) BLOOD GAS+COOX+LYTES+METAB ARTERIAL POCT (07/21/2024 8:37 AM HAND ETCHER) pH Arterial 7.42 7.35 - 7.45 pH 07/21/2024 8:37 AM HAND [facility] pO2 Arterial 208(H) 80 - 100 mmHg 07/21/2024 8:37 AM [facility] pCO2 Arterial 36 35 - 45 mmHg 8:37 AM [facility] HCO3 Arterial 23.4 20.0 - 30.0 mmol/L 07/21/2024 8:37 AM [facility] BE Arterial -0.8 -2.0 - 2.0 mmol/L 07/21/2024 8:37 AM [facility] Oxyhemoglobin Arterial 97.4 % 07/21/2024 8:37 AM [facility] Dexoyhemoglobin (HHB) % <1.0 % 07/21/2024 8:37 AM [facility] Methemoglobin 0.9 0.0 - 2.0 % 07/21/2024 8:37 AM [facility] Carboxyhemoglobin 1.1 0.0 - 2.0 % 2024 8:37 AM [facility] Comment:Carboxyhemoglobin No rmal Concentration: Non-smokers: 0-2%; Smokers: 0- 9%; Toxic: >20% O2 Content Arterial 16.0 Interpret within clinical context ml/dL 07/21/2024 8:37 AM [facility] Hemoglobin by COOX 11.3(L) 12.0 - 15.6 g/dL 07/21/2024 8:37 AM [facility] O2 Saturation Arterial 99 90 - 100 % 07/21/2024 8:37 AM [facility] Sodium Whole Blood 136 135 - 145 mmol/L 07/21/2024 8:37 AM [facility] Potassium Whole Blood 4.5 3.5 - 5.5 mmol/L 07/21/2024 8:37 AM [facility] Chloride WB 106 78 - 107 mmol/L 07/21/2024 8:37 AM [facility] Calcium Ionized 1.26 mmol/L 8:37 AM [facility] Ionized Calcium pH Adjusted 1.27 1.19 - 1.34 mmol/L 07/21/2024 8:37 AM [facility] Anion Gap (AG) Arterial 7 6 - 16 mmol/L 07/21/2024 8:37 AM [facility] Glucose WB 114(H) 70 - 99 mg/dL 07/21/2024 8:37 AM [facility] Lactic Acid Whole Blood 0.8 <=2.0 mmol/L 07/21/2024 8:37 AM [facility] Blood, arterial ARTERIAL BLOOD SPECIMEN / Unknown 07/21/2024 8:37 AM HAND [facility]ER 07/21/2024 8:38 AM HAND [facility] Charley Thakkar MD LAB - POINT OF CARE ORDERABLES [address] [address], [place] [phone] * BLOOD GAS ART+LYTES+METAB+COOX POC NOTIF (07/21/2024 8:29 AM HAND ETCHER) Comment Notification Label Only - See Separate Report 07/21/2024 10:00 AM [facility] Other MISCELLANEOUS SAMPLES / Unknown Collection / Unknown 07/21/2024 8:29 AM HAND ETCHER 07/21/2024 8:31 AM HAND ETCHER Farzad Hill MD LAB - BLOOD GASES OR DERABLES Performing Organization Address [facility]/ZIP Co de Phone Number [address] [address], [place] [phone] * TYPE + SCREEN PANEL (07/21/2024 6:22 AM HAND ETCHER) Only the most recent of2 resultswithin the time period is included. Antibody Screen NEG 07/21/2024 7:01 AM [facility] ABO Rh AB NEG 07/21/2024 7:01 AM [facility] Blood Bank BLOOD SPECIMEN / Unknown Line Draw / Unknown 07/21/2024 6:22 AM HAND [facility]ER 07/21/2024 6:25 AM HAND ET[facility]ER Kassandra Thakkar SPA EXPERIENCE COORDINATOR-SENIOR NUCLEAR MEDICINE TECHNOLOGIST LAB - BLOOD BAN K ORDERABLES Performing Organization Address City/[facility]/ZIP Co de Phone Number [facility] [address] [place] [address], [place] [phone] * HCG URINE QUALITATIVE - POCT (IP) INTERFACED (07/21/2024 6:03 AM HAND ETCHER) HCG Qual Urine Negative Negative 07/21/2024 6:09 AM HAND [facility] Urine URINE / Unknown 07/21/2024 6 :03 AM HAND ETCHER 07/21/2024 6:09 AM HAND ETCHER Charley Thakkar MD LAB - POINT OF CARE ORDERABLES [address] [address], [facility] [phone] * HCG URINE QUAL POCT NOTIFICATION (07/21/2024 5:52 AM HAND ETCHER) Comment Notification Label Only - See Separate Report 07/21/2024 7:00 AM HAND [facility] Urine URINE / Unknown 07/21/2024 5 :52 AM HAND ETCHER 07/21/2024 5:52 AM HAND ETCHER Kassandra Thakkar SPA EXPERIENCE COORDINATOR-SENIOR NUCLEAR MEDICINE TECHNOLOGIST LAB - URINALYSI S ORDERABLES Performing Organization Address City/[facility]/ZIP Co de Phone Number [address] [phone], [facility] [phone] * PET CT Cu64 Neuroendo Skull Mid Thigh (06/22/2024 10:22 AM HAND ETCHER) Anatomical Region Laterality Modality Head, Lower Extremity Positron E mission Tomography (PET) 06/22/2024 9:17 AM HAND ETCHER Impressions 06/22/2024 1:41 PM HAND ETCHER IMPRESSION: 1.Mixed solid and cystic mass in the head of the pancreas with increased DOTATATE uptake, consistent with biopsy-proven neuroendocrine tumor. 2.No evidence of local or metastatic disease. > Dictated by Kalpana Fernandes MD (radiology physician assistant). > Dictated by Kalpana Fernandes (Radial Drill Press Operator) 06/22/2024 9:17 AM IViridiana DO have personally reviewed and interpreted this examination/study. > Interpreting Provider: Viridiana Benoit DO on 06/22/2024 1:41 PM Narrative 06/22/2024 1:41 PM HAND [facility]CHER EXAMINATION: PET CT CU64 NEUROENDO SKULL MID THIGH DATE/TIME OF EXAM: 06/22/2024 10:23 AM, LOCATION [facility] REFERRING PHYSICIAN: Charley Thakkar MD HISTORY: D3A.8: Neuroendocrine tumor (HCC) 34-year-old female with 1.2 cm pancreatic head mixed solid and cystic lesion on outside MRCP. Biopsy showed well-differentiated neuroendocrine tumor 05/08/2024. Ki-67 proliferative rate is less than 1%. Evaluate for new treatment strategy. TECHNIQUE: 4.2 mCi of Cu-64 Dotatate (Detectnet) by IV in the left antecubital fossa. PET/CT image acquisition from top of the head to the feet after approximately 60 minutes post-injection with the CT being low-dose, non-contrast. No separate report for the CT was used for attenuation correction and anatomic localization. Patient's BMI is 29 kg/m . COMPARISON: No prior study is available for comparison. FINDINGS: For reference, SUVmax of liver is 6.5. Head and neck: Physiologic radiotracer activity is seen in the pituitary, thyroid and salivary glands. No abnormal radiotracer focus is present. Chest: The lungs are clear of focal consolidation. There is no evidence of pneumothorax or pleural effusion. No suspicious hypermetabolic pulmonary nodule is identified. No abnormal FDG avid mediastinal nodes. The heart size is normal. No pericardial effusion. Benign appearing bilateral axillary nodes. Abdomen and pelvis: There is a mixed solid and cystic mass in the head of the pancreas with increased uptake, SUV max 35.3. Cholecystostomy tube is present. Physiologic radiotracer activity is seen in the liver, kidneys, adrenal glands, and spleen. Musculoskeletal: No abnormal radiotracer focus is present. Procedure Note Viridiana Benoit DO - 06/22/2024 EXAMINATION: PET CT CU64 NEUROENDO SKULL MID THIGH DATE/TIME OF EXAM: 06/22/2024 10:23 AM, LOCATION [facility] REFERRING PHYSICIAN: Charley Thakkar MD HISTORY: D3A.8: Neuroendocrine tumor (HCC) 34-year-old female with 1.2cm pancreatic head mixed solid and cystic lesion on outside MRCP. Biopsy showed well-differentiated neuroendocrine tumor 05/08/2024. Ki-67 proliferative rate is less than 1%. Evaluate for new treatment strategy. TECHNIQUE: 4.2 mCi of Cu-64 Dotatate (Detectnet) by IV in the left antecubital fossa. PET/CT image acquisition from top of the head to the feet after approximately 60 minutes post-injection with the CT being low-dose, non-contrast. No separate report for the CT was used for attenuation correction and anatomic localization. Patient's BMI is 29 kg/m . COMPARISON: No prior study is available for comparison. FINDINGS: For reference, SUVmax of liver is 6.5. Head and neck: Physiologic radiotracer activity is seen in thepituitary, thyroid and salivary glands. No abnormal radiotracer focus is present. Chest: The lungs are clear of focal consolidation. There is no evidenceof pneumothorax or pleural effusion. No suspicious hypermetabolic pulmonary nodule is identified. No abnormal FDG avid mediastinal nodes. The heart size is normal. No pericardial effusion. Benign appearing bilateral axillary nodes. Abdomen and pelvis: There is a mixed solid and cystic mass in the headof the pancreas with increased uptake, SUV max 35.3. Cholecystostomy tubeis present. Physiologic radiotracer activity is seen in the liver, kidneys, adrenal glands, and spleen. Musculoskeletal: No abnormal radiotracer focus is present. IMPRESSION: 1.Mixed solid and cystic mass in the head of the pancreas with increased DOTATATE uptake, consistent with biopsy-proven neuroendocrine tumor. 2.No evidence of local or metastatic disease. > Dictated by Kalpana Fernandes MD (radiology physician assistant). > Dictated by Kalpana Fernandes (Radial Drill Press Operator) 06/22/2024 9:17 AM Viridiana Das DO have personally reviewed and interpreted this examination/study. > Interpreting Provider: Viridiana Benoit DO on 06/22/2024 1:41 PM Charley Thakkar MD NM ORDERABLES from Last 3 Months Advance Directives * Full Code (Latest Code Status on File) Date Activated Date Inactivated Comments 08/04/2024 4:56 AM 08/08/2024 1:41 PM * Full Code Date Activated Date Inactivated Comments 07/22/2024 8:48 AM 07/24/2024 12:00 PM * Full Code Date Activated Date Inactivated Comments 05/16/2024 6:39 PM 05/19/2024 12:43 PM Care Teams Chain Pegger Relationship Specialty Start Date End Date Mayco Mixon [place] [address] [place] [address] PCP - General Family Medicine 05/08/24
--- OUTSIDE RECORDS SUMMARY | 2024-08-21 11:35 | XMS_ITS | Clinical Summary ---
Author Organization [facility] at the Medical Office Building Address [address] [place] [id number] Care Team Providers Care Documentation Specialist Name Role Phone Mayco Mixon DO Primary Care Provide r Kailash Mar MD Unavailable Allergies Active Allergy Reactions Criticality Noted Date Comments Amoxicillin Hives Medium Penicillins Hives Medium Medications PNV with [id number] ( VITAMIN PLUS LOW IRON) 27 mg iron- 1 mg tablet daily Active Active Problems Problem Noted Date Diagnosed Date Cancer of the endocrine pancreas 06/13/2024 Encounter for supervision of normal in third trimester 08/31/2018 Overview (09/14/2018): FOB: [place] First Trimester: [x] Labs: AB-, rubella immune, HIV, syphilis, Hep B,C negative [] Genetic Screening: Decline 2nd Trimester: [x] Anatomy ultrasound: 3rd Trimester: [x] CBC, HIV, syphilis screen [x] 1hr GCT (26-28wks): 114 [] Tdap (27-36wks) [] Rhogam (if Rh neg): [] GBS Chest pain 10/14/2013 Overview (09/04/2016): CHEST PAIN NEC Urinary tract infection 11/24/2012 Encounters Date Type Department Care Team Description 08/01/2024 Orders Only [facility] [address] [place] [address] Kailash Mar MD 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 [address] [place] [address] Kailash Mar MD Secondary neuroendocrine tumors (HCC) (Primary Dx) 06/23/2024 9:55 AM BRANCHER - 06/23/2024 11:59 PM BRANCHER Hospital Encounter [facility] [address] [place] [address] Diagnosis unknown Discharge Disposition: Discharge to home or self care 06/22/2024 Orders Only [facility] [address] [place] [id number] Kanwal Cooper PA Cancer of the endocrine pancreas (HCC) (Primary Dx) 06/21/2024 Telephone [facility] [address] [facility] Floor [address] [place] [address] Kun Noel MD New Referral 06/13/2024 2:00 PM BRANCHER Office Visit [facility] [address] [facility] Floor [address] [place] [address] Kailash Mar MD Cancer of the endocrine pancreas (HCC) (Primary Dx) from Last 3 Months Immunizations Immunization Administration Dates Next Due Tdap 09/14/2018 Surgical History Surgery Date Site/Laterality Comments TONSILLECTOMY Tonsillectomy AZ TONSILLECTOMY & ADENOIDEC AKIN <AGE 12 Tonsillectomy With Adenoidectomy - (Added by TW Conv) TONSILLECTOMY/ADENOIDECTOMY Medical History Medical History Date Comments PCOS (polycystic ovarian syndrome) Family History Medical History Relation Name Comments Diabetes Father Other Maternal Grandfather enlarge d heart; Stent Maternal Grandmother Coronar y Stent Placement; Multiple sclerosis Mother Hypertension Paternal Grandmother Relation Name Status Comments Father Alive Maternal Grandfather Other Maternal Grandmother Mother Alive Paternal Grandfather Alive Paternal Grandmother Alive Social History Tobacco Use Types Packs/Day Years Used Date Smoking Tobacco: Never Smokeless Tobacco: Never Alcohol Use Standard Drinks/Week Comments Not Currently 0 (1 standard drink = 0.6 oz pur e alcohol) Comments Unknown Sex and Gender Information Value Date Recorded Sex Assigned at Not on file Legal Sex Female 1:58 AM BRANCHER Gender Identity Not on file Sexual Orientation Not on file Obstetrics History Para Term AB IAB SAB Ectopic Multiple Livin g Live Births 2 1 1 0 0 1 1 Date Outcome GA Total Labor Labor/2nd/3rd Weight Sex Type Anes PTL Estephanie A1 A5 Name Clin Term Last Filed Vital Signs Vital Sign Reading Time Taken Comments Blood Pressure 124/85 06/13/2024 2:02 PM BRANCHER Pulse 88 11/01/2018 9:27 PM CDT Temperature 36.8 C (98.3 F) 06/13/2024 1:55 PM BRANCHER Respiratory Rate - - Oxygen Saturation 100% 06/13/2024 1:55 PM BRANCHER Inhaled Oxygen Concentration - - Weight 81.6 kg (180 lb) 06/13/2024 1:55 PM BRANCHER Height 169 cm (5' 6.54 ) 06/13/2024 1:55 PM BRANCHER Body Mass Index 28.59 06/13/2024 1:55 PM BRANCHER Plan of Treatment Health Maintenance Due Date Last Done Comments Hepatitis C Screening 1990 Varicella Vaccines (1 of 2 - 13+ 2-dose series) 01/24/2001 Hepatitis B Screening 01/24/2006 Regular Well Visit/Exam 18-64 01/24/2006 Pneumococcal vaccine <65 (1 of 2 - PCV) 01/24/2007 Zoster Vaccine (1 of 2) 01/24/2007 Cervical Cancer Screening 11/04/2017 11/04/2016 Depression Screening 01/07/2020 01/06/2019 Covid-19 Vaccine (3 - Modern a risk series) 03/13/2021 02/13/2021, 01/16/2021 Influenza Vaccine (#1) 2024 DTaP/Tdap/Td Vaccine (4 - Td or Tdap) 09/29/2032 09/29/2022, 09/14/2018, 06/18/2016 HPV Vaccines Aged Out No longer eligi ble based on patient's age to complete this topic Procedures Procedure Name Priority Date/Time Associated Diagnosis Comments SURGICAL PATHOLOGY Routine 08/01/2024 7: 27 AM BRANCHER Secondary neuroendocrine tumors (HCC) PET OUTSIDE CONSULT Routine 06/23/2024 9:56 AM BRANCHER Diagnosis unknown THINPREP IMAGING PAP REFLEX HPV MRNA E6/E7 Routine 11/04/2016 10:53 AM CDT from Last 3 Months or Most Recently Relevant to Health Maintenance Results * Surgical pathology (08/01/2024 7:27 AM BRANCHER) Tissue (Miscellaneous) 08/01/2024 7:27 AM BRANCHER 08/01/2024 7:27 AM BRANCHER Narrative [facility] - 08/10/2024 4:31 PM CDT EPIC results best viewed via link to PDF [facility] Consult Service [address], [place] [address] Note to Patients: This report may contain a detailed description of human tissue sent by a health care provider to the laboratory for pathologic evaluation. The content of this report is essential for diagnosis and may provide important critical findings. This information may be unfamiliar to patients to review without a medical professional present. It is advised that the patient review this report in the presence of a health care provider who can answer questions and explain the details. SURGICAL PATHOLOGY REPORT * Consult Report * [facility] is providing an additional review of previously collected tissue. FINAL Patient Name: PUMA CHEEMA Address: [address] [place], [place] [id number] Gender: F : 1990 (Age: 34) Hospital #: [id number] Patient Type: [facility] Location: UNKNOWN Taken: 08/01/2024 Received: 08/01/2024 Accessioned: 08/02/2024 Reported: 08/10/2024 Physician(s): Saeid Mar M.D. [facility] Pathology Attn Pathology Dept ATTN: Pathology Department [facility] Pathology- 4th Floor [facility] Room [address] [address] P: [phone] F: [phone] Diagnosis: Consult material received from [facility], [place], [place] (OSC: [id number]; 07/21/2024) A. 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 niels/08/09/2024 20:00 By this signature, I attest that the above diagnosis is based upon my personal examination of the slides(and/or other material indicated in the diagnosis). Marcellus Lynn M.D. Report Electronically Reviewed and Signed Out By Marcellus Lynn M.D. 08/10/2024 16:31:44 Diagnosis Comment The sections show a tumor composed of monomorphic cells with low nuclear grade and stippled chromatin in trabecular and nested growth patterns. Mitotic activity is inconspicuous. Some areas show aggregates of extracellular eosinophilic globular material. In order to exclude a solid pseudopapillary neoplasm, immunostains were performed with appropriate controls on a requested block at our institution. They show that the tumor cells have membranous expression of beta catenin, are diffusely positive for synaptophysin and chromogranin, and show partial but strong labeling for CAM5.2. The findings are consistent with a well-differentiated neuroendocrine tumor, which is present at the cauterized margins. Microscopic Description and Comment: Unless gross-only is specified, the final diagnosis for each specimen is based on a microscopic examination of each tissue sample. Abdias Plata M.D. History: The patient is a 34-year-old woman with history of neuroendocrine tumor of the pancreas. Materials Received: Received for review are two slides labeled [id number], accompanied by a corresponding pathology report. The material originates from [facility], [place], [place]. Selected slide(s) may be digitally scanned for our files, and all materials are returned to the referring institution, along with a copy of our final report. Any testing required for diagnostic purposes was performed in the Department of Pathology and Immunology at [facility], [address] [place] [address], [place] [address] CLIA # [id number] The performance characteristics of the testing cited in this report (if any) were determined by the [facility] Department of Pathology and Immunology [facility], as part of an ongoing quality assurance coordinator program and in compliance with federally mandated regulations drawn from the Clinical Laboratory Improvement Act of 1988 (CLIA '88). Some of these tests rely on the use of analyte specific reagents (ASR) and are subject to specific labeling requirements by the US Food and Drug Administration. Such diagnostic tests may only be performed in a facility that is certified by the Department of Health and Human Services as a high complexity laboratory under CLIA '88. The FDA has determined that such clearance or approval is not necessary. ASRs should not be regarded as investigational or for research. ASRs were developed and the performance characteristics determined by the [facility], [facility] Department of Pathology and Immunology. It has not been cleared or approved by the U.S. Food and Drug Administration. Any test designated as LDT was developed and its performance characteristics determined by [facility]. It has not been cleared or approved by the FDA. This test is used for clinical purposes and should not be regarded as investigational or for research. Report images and/or scanned reports, if included, only viewable in PDF version of report. Kailash Mar MD LAB PATHOLOGY ORDERABLES Final Result [facility] [address] [facility] [address] [place] [address] * PET Outside Consult (06/23/2024 9:56 AM BRANCHER) Anatomical Region Laterality Modality N/A Nuclear Medicine 06/23/2024 10:5 0 AM BRANCHER Impressions 06/23/2024 1:58 PM BRANCHER 1. Intensely radiotracer avid pancreatic head mass compatible with biopsy-proven well-differentiated neuroendocrine tumor. 2. No evidence of radiotracer avid local or distant metastatic disease. Modified Krenning score = 4 The findings, conclusions and recommendations within this report do not replace the initial findings, conclusions and recommendations made at the facility where the study was performed based upon the imaging and clinical condition at that time. Comparison with the prior report and clinical history is necessary. The provided images may or may not represent the poarch source data set and thus may contain changes that may lower the accuracy of this second-opinion interpretation. Dictated by: Ray Alcazar MD The radiology attending physician has personally reviewed this study, and had reviewed and/or edited this written report and agrees with it. Electronically signed by: Dave Amaro MD, Ph.D Narrative 06/23/2024 1:58 PM BRANCHER EXAMINATION: RADIOLOGY CONSULTATION ON OUTSIDE IMAGING STUDY . STUDY INITIALLY PERFORMED: 06/22/2024, images acquired at [facility]. TYPE OF STUDY: Dotatate-PET/CT. The images available for review consisted of axial attenuation-corrected and uncorrected PET images and axial CT images. The total scanned area was skull vertex to the toes. The study was interpreted on the Eurotri workstation. The protocol was adequate to address the clinical question. The outside final report was available at the time of this second opinion interpretation. DATE OF CONSULTATION: 06/23/2024 HISTORY: 34-year-old woman with recently diagnosed pancreatic head well-differentiated neuroendocrine tumor (grade 1, Ki-67 <3%) on 05/08/2024. Recent cholecystostomy on 05/16/2024 Initial treatment strategy. All reported SUVs are maximum SUVs, unless otherwise specified. COMPARISON: None REFERENCE TISSUE MAXIMUM SUVs: Liver 6.6 Spleen 23.2 Focal dotatate tracer uptake (visually classified on MIP images) in reference lesions on PET is graded as follows (Modified Krenning Score): 0. No uptake (Negative) 1. Uptake < liver (Minimal) 2. Uptake = liver (Mild) 3. Uptake > liver, but < spleen (Moderate) 4. Uptake > spleen (Intense) FINDINGS: There is an intensely radiotracer avid mass in the pancreatic head measuring up to 3.1 x 4.6 cm in maximum transaxial dimensions. No additional suspicious radiotracer uptake to suggest local or distant metastatic disease. Additional CT findings: Mild right basilar atelectasis. Percutaneous cholecystostomy tube is in place, with decompressed gallbladder. L3 vertebral body hemangioma. Procedure Note Dave Martinez MD PhD - 06/23/2024 EXAMINATION: RADIOLOGY CONSULTATION ON OUTSIDE IMAGING STUDY . STUDY INITIALLY PERFORMED: 06/22/2024, images acquired at [facility]. TYPE OF STUDY: Dotatate-PET/CT. The images available for review consisted of axial attenuation-corrected and uncorrected PET images and axial CT images. The total scanned area was skull vertex to the toes. The study was interpreted on the Eurotri workstation. The protocol was adequate to address the clinical question. The outside final report was available at the time of this second opinion interpretation. DATE OF CONSULTATION: 06/23/2024 HISTORY: 34-year-old woman with recently diagnosed pancreatic head well-differentiated neuroendocrine tumor (grade 1, Ki-67 <3%) on 05/08/2024. Recent cholecystostomy on 05/16/2024 Initial treatment strategy. All reported SUVs are maximum SUVs, unless otherwise specified. COMPARISON: None REFERENCE TISSUE MAXIMUM SUVs: Liver 6.6 Spleen 23.2 Focal dotatate tracer uptake (visually classified on MIP images) in reference lesions on PET is graded as follows (Modified Krenning Score): 0. No uptake (Negative) 1. Uptake < liver (Minimal) 2. Uptake = liver (Mild) 3. Uptake > liver, but < spleen (Moderate) 4. Uptake > spleen (Intense) FINDINGS: There is an intensely radiotracer avid mass in the pancreatic head measuring up to 3.1 x 4.6 cm in maximum transaxial dimensions. No additional suspicious radiotracer uptake to suggest local or distant metastatic disease. Additional CT findings: Mild right basilar atelectasis. Percutaneous cholecystostomy tube is in place, with decompressed gallbladder. L3 vertebral body hemangioma. IMPRESSION: 1. Intensely radiotracer avid pancreatic head mass compatible with biopsy-proven well-differentiated neuroendocrine tumor. 2. No evidence of radiotracer avid local or distant metastatic disease. Modified Krenning score = 4 The findings, conclusions and recommendations within this report do not replace the initial findings, conclusions and recommendations made at the facility where the study was performed based upon the imaging and clinical condition at that time. Comparison with the prior report and clinical history is necessary. The provided images may or may not represent the poarch source data set and thus may contain changes that may lower the accuracy of this second-opinion interpretation. Dictated by: Ray Alcazar MD The radiology attending physician has personally reviewed this study, and had reviewed and/or edited this written report and agrees with it. Electronically signed by: Dave Amaro MD, Ph.D Kailash Mar MD IM PET PROCEDURES Final Result * Thin[facility] Pap Reflex HPV mRNA E6/E7 (11/04/2016 10:53 AM CDT) Pathologist [facility] CLINICAL INFORMATION [facility] HISTORICAL RESULTS Comment:Information not prov ided LMP: 10/28/16 [facility] PREV. PAP: [facility] Comment:INFORMATION NOT PROV IDED PREV. BX: [facility]IST[facility]ICAL RESULTS Comment:INFORMATION NOT PROV IDED SOURCE: [facility] RESULTS Comment:Cervix, Endocervix STATEMENT OF ADEQUACY: [facility] HIST[facility]ICAL RESULTS Comment:Satisfactory for lan luation. Endocervical/transformation zone component present. INTERPRETATION/RESU LT: [facility] HISTORICAL RESULTS Comment:Negative for intraep ithelial lesion or malignancy. COMMENT: [facility] HISTORICAL RESULTS Comment:This Pap test has be en evaluated with computer assisted technology. 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 [address] 11/04/2016 10:5 3 AM CDT 11/09/2016 4:35 PM CDT Narrative [facility] - [facility] HISTORICAL RESULTS - 11/09/2016 4:21 PM CDT 0 PERFORMING LAB: [facility] [address] [facility] [phone] Carlos John MD us Axel Birch DO LAB PATHOLOGY ORDERABL ES Final Result [facility] HISTORICAL RESULTS from Last 3 Months or Most Recently Relevant to Health Maintenance Insurance [employer] ACCESS ANTHEM ACCESS Care Teams Documentation Specialist Relationship Specialty Start Date End Date Mayco Mixon [place] [address] [place] [address] PCP - General Family Medicine 05/11/24 Kailash Mar MD [address] [place] [address] Consulting Physician Medical Oncology 05/12/24
--- OUTSIDE RECORDS SUMMARY | 2024-08-21 11:35 | XMS_ITS | Encounter Summary ---
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 Name Role Phone No, Physician Primary Care Provider [phone] Mayco Mixon DO Primary Care Provide r Kailash Mar MD Unavailable [phone] Encounter Details Date Type Department Care Team (Latest Contact Info) Description 11/15/2015 Orders Only [facility]IN[facility] ProviderYuriy MD [address] [place] [address] Social History Tobacco Use Types Packs/Day Years Used Date Smoking Tobacco: Never Alcohol Use Standard Drinks/Week Comments Yes 0 (1 standard drink = 0.6 oz pur e alcohol) Comments Unknown Sex and Gender Information Value Date Recorded Sex Assigned at Not on file Legal Sex Female 1:58 AM TAXICAB DRIVER Gender Identity Not on file Sexual Orientation Not on file documented as of this encounter Plan of Treatment Not on file documented as of this encounter Procedures Procedure Name Priority Date/Time Associated Diagnosis Comments SCAN - LABS 11/15/2015 12:00 AM CDT documented in this encounter Results * SCAN - LABS (11/15/2015 12:00 AM CDT) Narrative 11/15/2015 12:00 AM CDT Ordered by an unspecified provider. us Historical Provider Final Res ult documented in this encounter Visit Diagnoses Not on filedocumented in this encounter Care Teams Steam Cleaning Machine Operator Relationship Specialty Start Date End Date No, Physician PCP - General 08/31/18 05/10/24 Mayco Mixon DO [address] [place] [address] PCP - General Family Medicine 05/11/24 Kailash Mar MD [address] [place] [address] Consulting Physician Medical Oncology 05/12/24 documented as of this encounter
--- OUTSIDE RECORDS SUMMARY | 2024-08-21 11:35 | XMS_ITS | Encounter Summary ---
Author Organization [facility] Address [facility] [place] [address] Care Team Providers Care Fruit Or Nut Picker Name Role Phone None, Provider Primary Care Provider Mayco Lowery DO Primary Care Provider [phone] Encounter Details Date Type Department Care Team (Late st Contact Info) Description 10/01/2022 Hospital Follow-up Call [facility] [place] [address] Maria E Fagan, RN Social History Tobacco Use Types Packs/Day Years Used Date Smoking Tobacco: Never Smokeless Tobacco: Never Alcohol Use Standard Drinks/Week Comments Not Currently 0 (1 standard drink = 0.6 oz pur e alcohol) socially Humiliation, Afraid, Rape, and Kick questionnair e Answer Date Recorded Within the last year, have y ou been afraid of your partner or ex-partner? No 09/27/2022 Within the last year, have y ou been humiliated or emotionally abused in other ways by your partner or ex-partner? No Within the last year, have y ou been kicked, hit, slapped, or otherwise physically hurt by your partner or ex-partner? No 09/27/2022 Within the last year, have y ou been raped or forced to have any kind of sexual activity by your partner or ex-partner? No 09/27/2022 Social Connection and Isolation Panel [NHANES] A nswer Date Recorded In a typical week, how many times do you talk on the phone with family, friends, or neighbors? Twice a week 09/27/2022 How often do you get together with friends or re latives? Twice a week 09/27/2022 Attends [employer] Services Not on file 09/27 Active Member of Clubs or Organizations Not on f ile 09/27/2022 Attends Club or Organization Meetings Not on chang e 09/27/2022 Are you , , di vorced, , never , or living with a partner? 09/27/2022 AUDIT-C Answer Date Recorded Q1: How often do you have a drink containing alcohol? Never 09/27/2022 Q2: How many drinks containi ng alcohol do you have on a typical day when you are drinking? Patient does not drink Q3: How often do you have si x or more drinks on one occasion? Never 09/27/2022 Overall Financial Resource Strain (CARDIA) Answe r Date Recorded How hard is it for you to pa y for the very basics like food, housing, medical care, and heating? Not hard at all 09/27/2022 [facility] - Occupational Stress Questionnaire Answer Date Recorded Do you feel stress - tense, restless, nervous, or anxious, or unable to sleep at night because your mind is troubled all the time - these days? Only a little 09/27/2022 Exercise Vital Sign Answer Date Recorde d On average, how many days pe r week do you engage in moderate to strenuous exercise (like a brisk walk)? 3 days 09/27/2022 On average, how many minutes do you engage in exercise at this level? 20 min 09/27/2022 Hunger Vital Sign Answer Date Recorded Within the past 12 months, y ou worried that your food would run out before you got the money to buy more. Never true 09/28/19 23 Within the past 12 months, t he food you bought just didn't last and you didn't have money to get more. Never true 09/27/2022 PRAPARE - Transportation Answer Date Re corded In the past 12 months, has l ack of transportation kept you from medical appointments or from getting medications? No 08/31 In the past 12 months, has l ack of transportation kept you from meetings, work, or from getting things needed for daily living? No 09/27/2022 Housing Stability Vital Sign Answer Lacho e Recorded In the last 12 months, was t here a time when you were not able to pay the mortgage or rent on time? No 09/27/2022 In the last 12 months, how many places have you lived? 1 09/27/2022 In the last 12 months, was t here a time when you did not have a steady place to sleep or slept in a assisted (including now)? 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 No / Unsure 09/27/2022 9:12 PM CDT documented as of this encounter Functional Status * Are you deaf or do you have serious difficulty hearing Answer Date of Assessment Author Status No 09/27/2022 10:56 PM CDT Aislinn Newman RN Active * Are you blind or do you have serious difficulty seeing, even when wearing glasses? Answer Date of Assessment Author Status No 09/27/2022 10:56 PM CDT Aislinn Newman RN Active * Do you have serious difficulty walking or climbing stairs? Answer Date of Assessment Author Status No 09/27/2022 10:56 PM CDT Aislinn Newman RN Active * Do you have difficulty dressing or bathing? Answer Date of Assessment Author Status No 09/27/2022 10:56 PM CDT Aislinn Newman RN Active * Because of a physical, mental, or emotional condition, do you have difficulty doing errands alone such as visiting a doctor's office or shopping? Answer Date of Assessment Author Status No 09/27/2022 10:56 PM CDT Aislinn Newman RN Active documented as of this encounter Mental Status * Because of a physical, mental, or emotional condition, do you have serious difficulty concentrating, remembering, or making decisions? 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 Office Visit [facility] - [place] [address] [place] [address] Mayco Mixon DO [address] [place] [id number] documented as of this encounter Visit Diagnoses Not on filedocumented in this encounter Additional Health Concerns Infection Onset Date Last Indicated Resolved Time COVID-19 Rule Out 06/06/2024 06/06/2024 06/06/2024 10:12 PM R[employer] AND MISCELLANEOUS REMITTANCE CLERK documented as of this encounter Care Teams Fruit Or Nut Picker Relationship Specialty Start Date End Date None, Provider, PCP - General UNKNOWN PHYSICIAN SPECIALTY 09/27/22 05/03/24 Mayco Mixon DO [address] [place] [address] PCP - General FAMILY PRACTICE 05/04/24 documented as of this encounter
--- OUTSIDE RECORDS SUMMARY | 2024-08-21 11:35 | XMS_ITS | Data Portability ---
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 Plan of Treatment Reminders Order Date Submit Date Provider Last Modified By Organization Details Last Modified Time Details Appointments None recorded. Lab CMP, serum or plasma 2022 023 [facility], [address] [place], [address], 3 12:34:44 uric acid, serum or plasma 2022 023 [id number] [employer] [facility], [address] [place], [address], 3 10:48:24 CBC w/ auto diff 2022 023 [facility], [address] [place], [address], 3 11:43:11 streptococc us group B, culture, unspecified specimen 2022 023 [facility], [address] [place], [address], 3 10:13:11 Referral None recorded. Procedures None recorded. Surgeries None recorded. Imaging None recorded. Medication Orders None recorded. Patient TargetsNo targets recorded. Patient Instructions Encounter Date Encounter Id Patient Instructions Last Modified By Organization Details Last Modified Time 10/01/2022 [id number] blood pressure check* [email or web address] Not available 10/02/2022 17:06:27 10/07/2022 [id number] edinburgh depression scale* Not available 10/14/2022 11:17:47 blood pressure check* Not available 10/14/2022 11:17:47 Reason for Referral None Reported. Results Created Date Observation Date Name Description Value Unit Range Abnormal Flag Note LastModifiedBy Organization Detail LastModifiedTime 08/28/1908/28/2022 VAGIN ITIS PANEL bacterial vaginosis BV neg negati ve normal Not Available [facility] [address] [place] [address], [address], 08/28/2022 13:46:54 08/28/19 23 08/28/2022 VAGIN ITIS PANEL massimo species C. spp POS negati ve abnormal Not Available [address], [address], 08/28/2022 13:46:54 08/28/19 23 08/28/2022 VAGIN ITIS PANEL massimo glabrata C. gla neg negati ve normal Not Available [address], [address], 08/28/2022 13:46:54 08/28/19 23 08/28/2022 VAGIN ITIS PANEL trichomonas vaginalis CV/TV TRICH neg negati ve normal Not Available [address], [address], 08/28/2022 13:46:54 09/09/1909/12/2022 CULTU RE, GROUP B STREP WITH SUSCE PTIBI LITY culture, group B strep with susceptibili ty SEE NOTE CULTU RE, GROUP B STREP WITH SUSCE PTIBI LITY Micro Numbe r: [id number] Test Statu s: Final Speci men Sourc e: Not given Speci men Quali ty: Adequ ate Resul t: No group B Strep tococ cus isola faby Note per CDC guide lines optim al recov tyler is achie gill by swabb ing both the lower vagin a and rectu m (thro ugh the anal sphin cter) . Not Available [facility] [address] [place], [address], 09/12/2022 10:13:11 09/25/19 23 09/24/2022 UA REFLE X TO MICRO specimen type URINE CLEAN CATCH Not Available [facility] (Lab) [address] [place], [address], 09/24/2022 16:31:54 09/25/19 23 09/24/2022 UA REFLE X TO MICRO color YELLOW Not Available [facility] (Lab) [address] [place], [address], 09/24/2022 16:31:54 09/25/19 23 09/24/2022 UA REFLE X TO MICRO clarity TURBID Not Available [facility] (Lab) [address] [place], [address], 09/24/2022 16:31:54 09/25/19 23 09/24/2022 UA REFLE X TO MICRO specific gravity 1.016 1.001- 1.030 Not Available [facility] (Lab) [place], [address], 09/24/2022 16:31:54 09/25/19 23 09/24/2022 UA REFLE X TO MICRO pH, urine 6.5 5.0-9. 0 Not Available [facility] (Lab) [place], [address], 09/24/2022 16:31:54 09/25/19 23 09/24/2022 UA REFLE X TO MICRO leukocytes 500 neg abnormal Not Available [facility] (Lab) [place], [address], 09/24/2022 16:31:54 09/25/19 23 09/24/2022 UA REFLE X TO MICRO nitrite NEGATI VE neg Not Available [facility] (Lab) [address] [place], [address], 09/24/2022 16:31:54 09/25/19 23 09/24/2022 UA REFLE X TO MICRO protein 10 mg/dL <30 Not Available [facility] (Lab) [address] [place], [address], 09/24/2022 16:31:54 09/25/19 23 09/24/2022 UA REFLE X TO MICRO glucose NORMAL mg/dL norm Not Available [facility] (Lab) [address] [place], [address], 09/24/2022 16:31:54 09/25/19 23 09/24/2022 UA REFLE X TO MICRO ketone 10 mg/dL neg abnormal Not Available [facility] (Lab) [place], [address], 09/24/2022 16:31:54 09/25/19 23 09/24/2022 UA REFLE X TO MICRO urobilinogen NORMAL mg/dL norm Not Available [facility] (Lab) [place], [address], 09/24/2022 16:31:54 09/25/19 23 09/24/2022 UA REFLE X TO MICRO bilirubin NEGATI VE mg/dL neg Not Available [facility] (Lab) [place], [address], 09/24/2022 16:31:54 09/25/19 23 09/24/2022 UA REFLE X TO MICRO blood NEGATI VE neg Not Available [facility] (Lab) [address] [place], [address], 09/24/2022 16:31:54 09/25/19 23 09/24/2022 UA REFLE X TO MICRO mucous RARE /lpf Not Available [facility] (Lab) [address] [place], [address], 09/24/2022 16:31:54 09/25/19 23 09/24/2022 UA REFLE X TO MICRO WBC 27 /hpf <6 high Not Available [facility] (Lab) [address] [facility], [place], [address], 09/24/2022 16:31:54 09/25/19 23 09/24/2022 UA REFLE X TO MICRO RBC >100 /hpf <6 high Not Available [facility] (Lab) [address] [facility], [place], [address], 09/24/2022 16:31:54 09/25/19 23 09/24/2022 UA REFLE X TO MICRO bacteria RARE /hpf none abnormal Not Available [facility] (Lab) [address] [place], [address], 09/24/2022 16:31:54 09/25/19 23 09/24/2022 UA REFLE X TO MICRO budding yeast RARE /hpf none abnormal Not Available [facility] (Lab) [address] [place], [address], 09/24/2022 16:31:54 09/25/19 23 09/24/2022 UA REFLE X TO MICRO squamous epithelial MODERA TE /hpf Not Available [facility] (Lab) [address] [place], [address], 09/24/2022 16:31:54 09/25/19 23 09/24/2022 GRAM SMEAR specimen description VAGINA L SPECIM EN Not Available [facility] (Lab) [address] [facility], [place], [address], 09/24/2022 17:14:04 09/25/19 23 09/24/2022 GRAM SMEAR special requests NO SPECIA L REQUES T Not Available [facility] (Lab) [address] [facility], [place], [address], 09/24/2022 17:14:04 09/25/19 23 09/24/2022 GRAM SMEAR gram smear NEGAT SKYLER FOR BACTE RIAL VAGIN OSIS YEAST RARE Not Available [facility] (Lab) [address] [facility], [place], [address], 09/24/2022 17:14:04 09/25/19 23 09/24/2022 GRAM SMEAR report status Pendin g Not Available [facility] (Lab) [address] [facility], [place], [address], 09/24/2022 17:14:04 09/25/19 23 09/24/2022 CREAT ININE , URINE creatinine, urine 84.9 mg/dL 28- Not Available [facility] (Lab) [address] [facility], [place], [address], 09/24/2022 17:58:28 09/25/19 23 09/24/2022 TOTAL PROTE IN, URINE total protein, urine 25.4 mg/dL <[address] [facility] (Lab) [address] [facility], [place], [address], 09/24/2022 17:58:29 09/26/19 23 09/25/2022 UA REFLE X TO MICRO specimen type URINE CLEAN CATCH Not Available [facility] (Lab) [address] [place], [address], 09/26/2022 00:02:12 09/26/1909/25/2022 UA REFLE X TO MICRO color LIGHT YELLOW Not Available [facility] (Lab) [place], [address], 09/26/2022 00:02:12 09/26/1909/25/2022 UA REFLE X TO MICRO clarity TURBID Not Available [facility] (Lab) [address] [place], [address], 09/26/2022 00:02:12 09/26/1909/25/2022 UA REFLE X TO MICRO specific gravity 1.020 1.001- 1.030 Not Available [facility] (Lab) [place], [address], 09/26/2022 00:02:12 09/26/19 23 09/25/2022 UA REFLE X TO MICRO pH, urine 6.5 5.0-9. 0 Not Available [facility] (Lab) [place], [address], 09/26/2022 00:02:12 09/26/1909/25/2022 UA REFLE X TO MICRO leukocytes 500 neg abnormal Not Available [facility] (Lab) [place], [address], 09/26/2022 00:02:12 09/26/19 23 09/25/2022 UA REFLE X TO MICRO nitrite NEGATI VE neg Not Available [facility] (Lab[facility] [address] [place], [address], 09/26/2022 00:02:12 09/26/19 23 09/25/2022 UA REFLE X TO MICRO protein 10 mg/dL <30 Not Available [facility] (Lab) [address] [facility], [place], [address], 09/26/2022 00:02:12 09/26/19 23 09/25/2022 UA REFLE X TO MICRO glucose NORMAL mg/dL norm Not Available [facility] (Lab) [address] [facility], [place], [address], 09/26/2022 00:02:12 09/26/19 23 09/25/2022 UA REFLE X TO MICRO ketone TRACE mg/dL neg abnormal Not Available [facility] (Lab) [address] [facility], [place], [address], 09/26/2022 00:02:12 09/26/19 23 09/25/2022 UA REFLE X TO MICRO urobilinogen NORMAL mg/dL norm Not Available [facility] (Lab) [address] [place] [facility], [place], [address], 09/26/2022 00:02:12 09/26/19 23 09/25/2022 UA REFLE X TO MICRO bilirubin NEGATI VE mg/dL neg Not Available [facility] (Lab) [address] [place] [facility], [place], [address], 09/26/2022 00:02:12 09/26/19 23 09/25/2022 UA REFLE X TO MICRO blood NEGATI VE neg Not Available [facility] (Lab) [address] [place] [facility], [place], [address], 09/26/2022 00:02:12 09/26/19 23 09/25/2022 UA REFLE X TO MICRO mucous RARE /lpf Not Available [facility] (Lab) [address] [place], [address], 09/26/2022 00:02:12 09/26/19 23 09/25/2022 UA REFLE X TO MICRO WBC 18 /hpf <6 high Not Available [facility] (Lab) [address] [place] [facility], [place], [address], 09/26/2022 00:02:12 09/26/19 23 09/25/2022 UA REFLE X TO MICRO RBC 3 /hpf <6 Not Available [facility] (Lab) [address] [place], [address], 09/26/2022 00:02:12 09/26/19 23 09/25/2022 UA REFLE X TO MICRO squamous epithelial FEW /hpf Not Available [facility] (Lab) [address] [place], [address], 09/26/2022 00:02:12 09/26/19 23 09/25/2022 CREAT ININE , URINE creatinine, urine 107.0 mg/dL Not Available [facility] (Lab) [address] [place], [address], 09/26/2022 00:07:25 09/26/19 23 09/25/2022 TOTAL PROTE IN, URINE total protein, urine 21.1 mg/dL <[address] [facility] (Lab) [address] [place], [address], 09/26/2022 00:07:28 09/26/19 23 09/26/2022 CBC WITH DIFF WBC 11.6 x10'3 /uL 4.5-11 .0 high Not Available [facility] (Lab) [address] [place] [facility], [place], [address], 09/26/2022 01:14:09/26/1909/26/2022 CBC WITH DIFF RBC 4.16 x10'6 /uL 4.20-5 .40 low Not Available [facility] (Lab) [address] [place] [facility], [place], [address], 09/26/2022 01:14:09/26/1909/26/2022 CBC WITH DIFF hemoglobin 10.7 g/dL 12.0-1 6.0 low Not Available [facility] (Lab) [address] [facility], [place], [address], 09/26/2022 01:14:09/26/1909/26/2022 CBC WITH DIFF hematocrit 33.6 % 38.0-4 8.0 low Not Available [facility] (Lab) [address] [facility], [place], [address], 09/26/2022 01:14:09/26/1909/26/2022 CBC WITH DIFF MCV 80.8 fL 81.0-9 9.0 low Not Available [facility] (Lab) [address] [place] [facility], [place], [address], 09/26/2022 01:14:09/26/1909/26/2022 CBC WITH DIFF MCH 25.7 pg 27.0-3 1.0 low Not Available [facility] (Lab) [address] [place], [address], 09/26/2022 01:14:09/26/1909/26/2022 CBC WITH DIFF MCHC 31.8 g/dL 32.0-3 6.0 low Not Available [facility] (Lab) [address], [place], [address], 09/26/2022 01:14:09/26/1909/26/2022 CBC WITH DIFF RDW 15.0 % 11.5-1 4.5 high Not Available [facility] (Lab) [address], [place], [address], 09/26/2022 01:14:09/26/19 23 09/26/2022 CBC WITH DIFF platelet count 185 x10'3 /uL 130-40 0 Not Available [facility] (Lab) [address], [place], [address], 09/26/2022 01:14:09/26/19 23 09/26/2022 CBC WITH DIFF MPV 12.7 fL 9.3-12 .2 high Not Available [facility] (Lab) [address], [place], [address], 09/26/2022 01:14:09/26/1909/26/2022 CBC WITH DIFF diff type AUTOMA FABY DIFFER ENTIAL Not Available [facility] (Lab) [address], [place], [address], 09/26/2022 01:14:09/26/1909/26/2022 CBC WITH DIFF neutrophils 72.1 % Not Available [facility] (Lab) [address], [place], [address], 09/26/2022 01:14:09/26/19 23 09/26/2022 CBC WITH DIFF lymphocytes 18.9 % Not Available [facility] (Lab) [address], [place], [address], 09/26/2022 01:14:09/26/1909/26/2022 CBC WITH DIFF monocytes 6.8 % Not Available [facility] (Lab) [address] [facility], [place], [address], 09/26/2022 01:14:09/26/19 23 09/26/2022 CBC WITH DIFF eosinophils 0.7 % Not Available [facility] (Lab) [address] [facility], [place], [address], 09/26/2022 01:14:09/26/1909/26/2022 CBC WITH DIFF basophils 0.3 % Not Available [facility] (Lab) [address] [facility], [place], [address], 09/26/2022 01:14:09/26/1909/26/2022 CBC WITH DIFF immature granulocytes 1.2 % Not Available [facility] (Lab) [address] [facility], [place], [address], 09/26/2022 01:14:09/26/1909/26/2022 CBC WITH DIFF abs. neutrophils 8.33 x10'3 /uL 1.80-7 .70 high Not Available [facility] (Lab) [address] [place], [address], 09/26/2022 01:14:09/26/1909/26/2022 CBC WITH DIFF abs. lymphocytes 2.18 x10'3 /uL 1.00-4 .80 Not Available [facility] (Lab) [address] [place], [address], 09/26/2022 01:14:09/26/19 23 09/26/2022 CBC WITH DIFF abs. monocytes 0.79 x10'3 /uL 0.24-0 .86 Not Available [facility] (Lab) [address] [place], [address], 09/26/2022 01:14:29 09/26/19 23 09/26/2022 CBC WITH DIFF abs. eosinophils 0.08 x10'3 /uL 0.04-0 .36 Not Available [facility] (Lab) [address] [facility], [place], [address], 09/26/2022 01:14:29 09/26/19 23 09/26/2022 CBC WITH DIFF abs. basophils 0.04 x10'3 /uL 0.01-0 .08 Not Available [facility] (Lab) [address] [place], [address], 09/26/2022 01:14:09/26/19 23 09/26/2022 CBC WITH DIFF abs. immature grans 0.14 x10'3 /uL 0.00-0 .49 Not Available [facility] (Lab) [address] [place], [address], 09/26/2022 01:14:29 09/26/19 23 09/26/2022 COMPR EHENS SKYLER METAB OLIC PANEL glucose 90 mg/dL 70-99 Not Available [facility] (Lab) [address] [facility], [place], [address], 09/26/2022 01:35:17 09/26/19 23 09/26/2022 COMPR EHENS SKYLER METAB OLIC PANEL BUN 6 mg/dL 7-18 low Not Available [facility] (Lab) [address] [place], [address], 09/26/2022 01:35:17 09/26/19 23 09/26/2022 COMPR EHENS SKYLER METAB OLIC PANEL creatinine 0.48 mg/dL 0.55-1 .02 low Not Available [facility] (Lab) [address] [facility] [place], [address], 09/26/2022 01:35:17 09/26/19 23 09/26/2022 COMPR EHENS SKYLER METAB OLIC PANEL sodium 135 mmol/ L 136-14 5 low Not Available [facility] (Lab) [address] [facility], [place], [address], 09/26/2022 01:35:17 09/26/1909/26/2022 COMPR EHENS SKYLER METAB OLIC PANEL potassium 3.2 mmol/ L 3.5-5. 1 low Not Available [facility] (Lab) [address] [place], [address], 09/26/2022 01:35:17 09/26/19 23 09/26/2022 COMPR EHENS SKYLER METAB OLIC PANEL chloride 106 mmol/ L 100-10 8 Not Available [facility] (Lab) [address] [place], [address], 09/26/2022 01:35:17 09/26/19 23 09/26/2022 COMPR EHENS SKYLER METAB OLIC PANEL total CO2 22.9 mmol/ L 21-32 Not Available [facility] (Lab) [address] [place], [address], 09/26/2022 01:35:17 09/26/19 23 09/26/2022 COMPR EHENS SKYLER METAB OLIC PANEL calcium 9.0 mg/dL 8.5-10 .1 Not Available [facility] (Lab) [address] [place], [address], 09/26/2022 01:35:17 09/26/19 23 09/26/2022 COMPR EHENS SKYLER METAB OLIC PANEL total bilirubin 0.9 mg/dL 0.2-1. 2 THIS ASSAY IS NOT RECOM ZACARIAS D FOR PATIE NTS UNDER GOING TREAT MENT WITH ELTRO MBOPA G DUE TO THE POTEN TIAL FOR FALSE LY ELEVA FABY RESUL TS. Not Available [facility] (Lab) [place], [address], 09/26/2022 01:35:17 09/26/1909/26/2022 COMPR EHENS SKYLER METAB OLIC PANEL total protein 6.8 g/dL 6.4-8. 2 Not Available [facility] (Lab) [place], [address], 09/26/2022 01:35:17 09/26/1909/26/2022 COMPR EHENS SKYLER METAB OLIC PANEL albumin 2.9 g/dL 3.4-5. 0 low Not Available [facility] (Lab) [place], [address], 09/26/2022 01:35:17 09/26/19 23 09/26/2022 COMPR EHENS SKYLER METAB OLIC PANEL AST 15 U/L 15-37 Not Available [facility] (Lab) [place], [address], 09/26/2022 01:35:17 09/26/19 23 09/26/2022 COMPR EHENS SKYLER METAB OLIC PANEL ALT 15 U/L 14-55 Not Available [facility] (Lab) [place], [address], 09/26/2022 01:35:17 09/26/19 23 09/26/2022 COMPR EHENS SKYLER METAB OLIC PANEL alk phosphatase 88 U/L 50-136 Not Available [facility] (Lab) [place], [address], 09/26/2022 01:35:17 09/26/1909/26/2022 COMPR EHENS SKYLER METAB OLIC PANEL anion gap 6.1 mmol/ L 5-15 Not Available [facility] (Lab) [place], [address], 09/26/2022 01:35:17 09/26/19 23 09/26/2022 COMPR EHENS SKYLER METAB OLIC PANEL BUN creatinine ratio 12.5 6-[address] [facility] (Lab) [place], [address], 09/26/2022 01:35:17 09/26/1909/26/2022 COMPR EHENS SKYLER METAB OLIC PANEL A:g ratio 0.7 ratio 1.0-2. 0 low Not Available [facility] (Lab) [place], [address], 09/26/2022 01:35:17 09/26/19 23 09/26/2022 COMPR EHENS SKYLER METAB OLIC PANEL est GFR >90 mL/mi n/1.7 3_M2 >90 NOTE: eGFR is not calcu lated for patie nts <18 years of age. This is an estim ated GFR calcu latio n using the new CKD EPI creat inine equat ion witho ut race and so does not requi re a corre ction facto r for race. This estim ated GFR shoul d not be used for calcu latin g drug doses . Not Available [facility] (Lab) [place], [address], 09/26/2022 01:35:17 09/28/1909/27/2022 UA REFLE X TO CULTU RE specimen type URINE CLEAN CATCH Not Available [facility] (Lab) [address] [place], [address], 09/27/2022 21:50:32 09/28/19 23 09/27/2022 UA REFLE X TO CULTU RE color LIGHT YELLOW Not Available [facility] (Lab) [address] [place], [address], 09/27/2022 21:50:32 09/28/19 23 09/27/2022 UA REFLE X TO CULTU RE clarity CLEAR Not Available [facility] (Lab) [address] [place], [address], 09/27/2022 21:50:32 09/28/19 23 09/27/2022 UA REFLE X TO CULTU RE specific gravity 1.013 1.001- 1.030 Not Available [facility] (Lab) [address] [place], [address], 09/27/2022 21:50:32 09/28/19 23 09/27/2022 UA REFLE X TO CULTU RE pH, urine 7.0 5.0-9. 0 Not Available [facility] (Lab) [address] [place], [address], 09/27/2022 21:50:32 09/28/19 23 09/27/2022 UA REFLE X TO CULTU RE leukocytes NEGATI VE neg Not Available [facility] (Lab) [address] [place], [address], 09/27/2022 21:50:32 09/28/19 23 09/27/2022 UA REFLE X TO CULTU RE nitrite NEGATI VE neg Not Available [facility] (Lab[place], [address], 09/27/2022 21:50:32 09/28/19 23 09/27/2022 UA REFLE X TO CULTU RE protein NEGATI VE mg/dL <30 Not Available [facility] (Lab) [address] [facility], [place], [address], 09/27/2022 21:50:32 09/28/19 23 09/27/2022 UA REFLE X TO CULTU RE glucose NORMAL mg/dL norm Not Available [facility] (Lab) [address] [place], [address], 09/27/2022 21:50:32 09/28/19 23 09/27/2022 UA REFLE X TO CULTU RE ketone NEGATI VE mg/dL neg Not Available [facility] (Lab) [address] [place], [address], 09/27/2022 21:50:32 09/28/19 23 09/27/2022 UA REFLE X TO CULTU RE urobilinogen NORMAL mg/dL norm Not Available [facility] (Lab) [address] [facility], [place], [address], 09/27/2022 21:50:32 09/28/19 23 09/27/2022 UA REFLE X TO CULTU RE bilirubin NEGATI VE mg/dL neg Not Available [facility] (Lab) [address] [place], [address], 09/27/2022 21:50:32 09/28/19 23 09/27/2022 UA REFLE X TO CULTU RE blood NEGATI VE neg Not Available [facility] (Lab) [address], [place], [address], 09/27/2022 21:50:32 09/28/19 23 09/27/2022 UA REFLE X TO CULTU RE culture indicated CULTUR E IS NOT INDICA FABY Not Available [facility] (Lab) [address] [facility], [place], [address], 09/27/2022 21:50:32 09/28/19 23 09/27/2022 UA REFLE X TO CULTU RE mucous RARE /lpf Not Available [facility] (Lab) [address], [place], [address], 09/27/2022 21:50:32 09/28/19 23 09/27/2022 UA REFLE X TO CULTU RE WBC 1 /hpf <6 Not Available [facility] (Lab) [address] [place], [address], 09/27/2022 21:50:32 09/28/19 23 09/27/2022 UA REFLE X TO CULTU RE RBC 2 /hpf <6 Not Available [facility] (Lab) [address], [place], [address], 09/27/2022 21:50:32 09/28/19 23 09/27/2022 UA REFLE X TO CULTU RE bacteria RARE /hpf none abnormal Not Available [facility] (Lab) [address] [facility], [place], [address], 09/27/2022 21:50:32 09/28/19 23 09/27/2022 UA REFLE X TO CULTU RE amorphous crystal RARE /hpf Not Available [facility] (Lab) [address] [place], [address], 09/27/2022 21:50:32 09/28/19 23 09/27/2022 UA REFLE X TO CULTU RE squamous epithelial RARE /hpf Not Available [facility] (Lab) [place], [address], 09/27/2022 21:50:32 09/28/19 23 09/27/2022 DRUGS OF ABUSE PANEL , URINE amphetamines , urine NEGATI VE neg Not Available [facility] (Lab) [place], [address], 09/27/2022 21:51:18 09/28/19 23 09/27/2022 DRUGS OF ABUSE PANEL , URINE barbituates, urine NEGATI VE neg Not Available [facility] (Lab) [place], [address], 09/27/2022 21:51:18 09/28/19 23 09/27/2022 DRUGS OF ABUSE PANEL , URINE benzodiazapi joelle, urine NEGATI VE neg Not Available [facility] (Lab) [place], [address], 09/27/2022 21:51:18 09/28/19 23 09/27/2022 DRUGS OF ABUSE PANEL , URINE cannabinoids /THC, urine NEGATI VE neg Not Available [facility] (Lab) [place], [address], 09/27/2022 21:51:18 09/28/19 23 09/27/2022 DRUGS OF ABUSE PANEL , URINE cocaine, urine NEGATI VE neg Not Available [facility] (Lab) [place], [address], 09/27/2022 21:51:18 09/28/19 23 09/27/2022 DRUGS OF ABUSE PANEL , URINE methadone, urine NEGATI VE neg Not Available [facility] (Lab) [place], [address], 09/27/2022 21:51:18 09/28/19 23 09/27/2022 DRUGS OF ABUSE PANEL , URINE opiates, urine NEGATI VE neg Not Available [facility] (Lab) [place], [address], 09/27/2022 21:51:18 09/28/19 23 09/27/2022 DRUGS OF ABUSE PANEL , URINE phencyclidin es, urine NEGATI VE neg NOTE: RESUL TS OF THIS DRUG SCREE N SHOUL D BE USED FOR MEDIC AL PURPO SES ONLY AND NOT FOR LEGAL OR EMPLO YMENT PURPO SES. POSIT SKYLER RESUL TS ARE NOT CONFI RMED. MEDIC ATION S CONTA INING EPHED RINE MAY CAUSE FALSE POSIT SKYLER AMPHE TAMIN E CALL [phone], LAB, TO REQUE ST CONFI RMATI ON TESTI NG. IF CREAT ININE IS <40 mg/dL . RECOL LECTI ON IS MAIRA CORONA. AMPHE TAMIN E- 500 NG/ML MASNO TURAT E- 200 NG/ML BENZO DIAZE PINES - 200 NG/ML THC- 50 NG/ML COCAI NE- 150 NG/ML METHA DONE- 300 NG/ML OPIAT E- 300 MG/ML PCP- 25 NG/ML Not Available [facility] (Lab) [place], [address], 09/27/2022 21:51:18 09/28/1909/27/2022 DRUGS OF ABUSE PANEL , URINE creatinine, urine 71.6 mg/dL 28-[address] [facility] (Lab) [place], [address], 09/27/2022 21:51:18 09/28/19 23 09/27/2022 CREAT ININE , URINE creatinine, urine 71.6 mg/dL 28-[address] [facility] (Lab) [address] [place], [address], 09/27/2022 21:52:16 09/28/19 23 09/27/2022 TOTAL PROTE IN, URINE total protein, urine 15.2 mg/dL <[address] [facility] (Lab) [address] [place], [address], 09/27/2022 21:52:18 09/28/19 23 09/27/2022 CBC WITH DIFF WBC 11.3 x10'3 /uL 4.5-11 .0 high Not Available [facility] (Lab) [address] [place], [address], 09/27/2022 22:34:04 09/28/19 23 09/27/2022 CBC WITH DIFF RBC 4.23 x10'6 /uL 4.20-5 .40 Not Available [facility] (Lab) [address] [place], [address], 09/27/2022 22:34:04 09/28/19 23 09/27/2022 CBC WITH DIFF hemoglobin 10.7 g/dL 12.0-1 6.0 low Not Available [facility] (Lab) [address] [facility], [place], [address], 09/27/2022 22:34:04 09/28/19 23 09/27/2022 CBC WITH DIFF hematocrit 33.9 % 38.0-4 8.0 low Not Available [facility] (Lab) [address], [place], [address], 09/27/2022 22:34:04 09/28/19 23 09/27/2022 CBC WITH DIFF MCV 80.1 fL 81.0-9 9.0 low Not Available [facility] (Lab) [address], [place], [address], 09/27/2022 22:34:04 09/28/19 23 09/27/2022 CBC WITH DIFF MCH 25.3 pg 27.0-3 1.0 low Not Available [facility] (Lab) [address], [place], [address], 09/27/2022 22:34:04 09/28/19 23 09/27/2022 CBC WITH DIFF MCHC 31.6 g/dL 32.0-3 6.0 low Not Available [facility] (Lab) [address] [facility], [place], [address], 09/27/2022 22:34:04 09/28/19 23 09/27/2022 CBC WITH DIFF RDW 15.2 % 11.5-1 4.5 high Not Available [facility] (Lab) [address], [place], [address], 09/27/2022 22:34:04 09/28/19 23 09/27/2022 CBC WITH DIFF platelet count 197 x10'3 /uL 130-40 0 Not Available [facility] (Lab) [address] [facility], [place], [address], 09/27/2022 22:34:04 09/28/19 23 09/27/2022 CBC WITH DIFF MPV 12.7 fL 9.3-12 .2 high Not Available [facility] (Lab) [address], [place], [address], 09/27/2022 22:34:04 09/28/19 23 09/27/2022 CBC WITH DIFF diff type AUTOMA FABY DIFFER ENTIAL Not Available [facility] (Lab) [address] [place], [address], 09/27/2022 22:34:04 09/28/19 23 09/27/2022 CBC WITH DIFF neutrophils 73.4 % Not Available [facility] (Lab) [address], [place], [address], 09/27/2022 22:34:04 09/28/19 23 09/27/2022 CBC WITH DIFF lymphocytes 18.0 % Not Available [facility] (Lab) [address], [place], [address], 09/27/2022 22:34:04 09/28/19 23 09/27/2022 CBC WITH DIFF monocytes 6.6 % Not Available [facility] (Lab) [address] [facility], [place], [address], 09/27/2022 22:34:04 09/28/19 23 09/27/2022 CBC WITH DIFF eosinophils 0.7 % Not Available [facility] (Lab) [address] [facility], [place], [address], 09/27/2022 22:34:04 09/28/19 23 09/27/2022 CBC WITH DIFF basophils 0.3 % Not Available [facility] (Lab) [address] [facility], [place], [address], 09/27/2022 22:34:04 09/28/19 23 09/27/2022 CBC WITH DIFF immature granulocytes 1.0 % Not Available [facility] (Lab) [address] [place], [address], 09/27/2022 22:34:04 09/28/19 23 09/27/2022 CBC WITH DIFF abs. neutrophils 8.32 x10'3 /uL 1.80-7 .70 high Not Available [facility] (Lab) [address] [place], [address], 09/27/2022 22:34:04 09/28/19 23 09/27/2022 CBC WITH DIFF abs. lymphocytes 2.04 x10'3 /uL 1.00-4 .80 Not Available [facility] (Lab) [place], [address], 09/27/2022 22:34:04 09/28/19 23 09/27/2022 CBC WITH DIFF abs. monocytes 0.75 x10'3 /uL 0.24-0 .86 Not Available [facility] (Lab) [address], [place], [address], 09/27/2022 22:34:04 09/28/19 23 09/27/2022 CBC WITH DIFF abs. eosinophils 0.08 x10'3 /uL 0.04-0 .36 Not Available [facility] (Lab) [place], [address], 09/27/2022 22:34:04 09/28/19 23 09/27/2022 CBC WITH DIFF abs. basophils 0.03 x10'3 /uL 0.01-0 .08 Not Available [facility] (Lab) [place], [address], 09/27/2022 22:34:04 09/28/19 23 09/27/2022 CBC WITH DIFF abs. immature grans 0.11 x10'3 /uL 0.00-0 .49 Not Available [facility] (Lab) [place], [address], 09/27/2022 22:34:04 09/28/19 23 09/27/2022 COMPR EHENS SKYLER METAB OLIC PANEL glucose 80 mg/dL 70-99 Not Available [facility] (Lab) [address] [place], [address], 09/27/2022 22:48:16 09/28/19 23 09/27/2022 COMPR EHENS SKYLER METAB OLIC PANEL BUN 8 mg/dL 7-18 Not Available [facility] (Lab) [address] [place], [address], 09/27/2022 22:48:16 09/28/19 23 09/27/2022 COMPR EHENS SKYLER METAB OLIC PANEL creatinine 0.51 mg/dL 0.55-1 .02 low Not Available [facility] (Lab) [address] [place], [address], 09/27/2022 22:48:16 09/28/19 23 09/27/2022 COMPR EHENS SKYLER METAB OLIC PANEL sodium 137 mmol/ L 136-14 5 Not Available [facility] (Lab) [address] [place], [address], 09/27/2022 22:48:16 09/28/19 23 09/27/2022 COMPR EHENS SKYLER METAB OLIC PANEL potassium 3.8 mmol/ L 3.5-5. 1 Not Available [facility] (Lab) [address] [place], [address], 09/27/2022 22:48:16 09/28/19 23 09/27/2022 COMPR EHENS SKYLER METAB OLIC PANEL chloride 107 mmol/ L 100-10 8 Not Available [facility] (Lab) [address] [place], [address], 09/27/2022 22:48:16 09/28/19 23 09/27/2022 COMPR EHENS SKYLER METAB OLIC PANEL total CO2 22.5 mmol/ L 21-32 Not Available [facility] (Lab) [address] [place], [address], 09/27/2022 22:48:16 09/28/19 23 09/27/2022 COMPR EHENS SKYLER METAB OLIC PANEL calcium 9.3 mg/dL 8.5-10 .1 Not Available [facility] (Lab) [address] [facility], [place], [address], 09/27/2022 22:48:16 09/28/19 23 09/27/2022 COMPR EHENS SKYLER METAB OLIC PANEL total bilirubin 0.3 mg/dL 0.2-1. 2 THIS ASSAY IS NOT RECOM ZACARIAS D FOR PATIE NTS UNDER GOING TREAT MENT WITH ELTRO MBOPA G DUE TO THE POTEN TIAL FOR FALSE LY ELEVA FABY RESUL TS. Not Available [facility] (Lab) [address] [facility], [place], [address], 09/27/2022 22:48:16 09/28/19 23 09/27/2022 COMPR EHENS SKYLER METAB OLIC PANEL total protein 6.8 g/dL 6.4-8. 2 Not Available [facility] (Lab) [address] [place], [address], 09/27/2022 22:48:16 09/28/19 23 09/27/2022 COMPR EHENS SKYLER METAB OLIC PANEL albumin 3.0 g/dL 3.4-5. 0 low Not Available [facility] (Lab) [address] [place], [address], 09/27/2022 22:48:16 09/28/19 23 09/27/2022 COMPR EHENS SKYLER METAB OLIC PANEL AST 16 U/L 15-37 Not Available [facility] (Lab[facility] [address] [facility] [place], [address], 09/27/2022 22:48:16 09/28/1909/27/2022 COMPR EHENS SKYLER METAB OLIC PANEL ALT 15 U/L 14-55 Not Available [facility] (Lab) [place], [address], 09/27/2022 22:48:16 09/28/19 23 09/27/2022 COMPR EHENS SKYLER METAB OLIC PANEL alk phosphatase 92 U/L 50-136 Not Available [facility] (Lab) [place], [address], 09/27/2022 22:48:16 09/28/19 23 09/27/2022 COMPR EHENS SKYLER METAB OLIC PANEL anion gap 7.5 mmol/ L 5-15 Not Available [facility] (Lab) [place], [address], 09/27/2022 22:48:16 09/28/19 23 09/27/2022 COMPR EHENS SKYLER METAB OLIC PANEL BUN creatinine ratio 15.6 6-[address] [facility] (Lab) [place], [address], 09/27/2022 22:48:16 09/28/19 23 09/27/2022 COMPR EHENS SKYLER METAB OLIC PANEL A:g ratio 0.8 ratio 1.0-2. 0 low Not Available [facility] (Lab) [place], [address], 09/27/2022 22:48:16 09/28/19 23 09/27/2022 COMPR EHENS SKYLER METAB OLIC PANEL est GFR >90 mL/mi n/1.7 3_M2 >90 NOTE: eGFR is not calcu lated for patie nts <18 years of age. This is an estim ated GFR calcu latio n using the new CKD EPI creat inine equat ion witho ut race and so does not requi re a corre ction facto r for race. This estim ated GFR shoul d not be used for calcu latin g drug doses . Not Available [facility] (Lab) [place], [address], 09/27/2022 22:48:16 09/28/19 23 09/28/2022 TYPE AND SCREE N ABO/Rh(D) AB NEGATI VE Not Available [facility] (Lab) [place], [address], 09/28/2022 01:00:26 09/28/19 23 09/28/2022 TYPE AND SCREE N antibody screen NEGATI VE Not Available [facility] (Lab) [address], [place], [address], 09/28/2022 01:00:26 09/28/1909/28/2022 TYPE AND SCREE N xm expiration 2022,2 359 Not Available [facility] (Lab) [place], [address], 09/28/2022 01:00:26 09/28/19 23 09/28/2022 TYPE AND SCREE N comment BLOOD TYPE AND SCREE N PERFO RMED MANUA LLY WITH GEL AND TUBE METHO D TO VERIF Y RESUL TS Not Available [facility] (Lab) [place], [address], 09/28/2022 01:00:26 09/30/19 23 09/29/2022 CBC WITH DIFF WBC 12.1 x10'3 /uL 4.5-11 .0 high Not Available [facility] (Lab) [address] [place], [address], 09/29/2022 06:55:22 09/30/1909/29/2022 CBC WITH DIFF RBC 3.93 x10'6 /uL 4.20-5 .40 low Not Available [facility] (Lab) [address] [facility], [place], [address], 09/29/2022 06:55:22 09/30/1909/29/2022 CBC WITH DIFF hemoglobin 9.9 g/dL 12.0-1 6.0 low Not Available [facility] (Lab) [address] [facility], [place], [address], 09/29/2022 06:55:22 09/30/1909/29/2022 CBC WITH DIFF hematocrit 31.7 % 38.0-4 8.0 low Not Available [facility] (Lab) [address] [facility], [place], [address], 09/29/2022 06:55:22 09/30/1909/29/2022 CBC WITH DIFF MCV 80.7 fL 81.0-9 9.0 low Not Available [facility] (Lab) [address] [facility], [place], [address], 09/29/2022 06:55:22 09/30/1909/29/2022 CBC WITH DIFF MCH 25.2 pg 27.0-3 1.0 low Not Available [facility] (Lab) [address] [facility], [place], [address], 09/29/2022 06:55:22 09/30/19 23 09/29/2022 CBC WITH DIFF MCHC 31.2 g/dL 32.0-3 6.0 low Not Available [facility] (Lab) [address], [place], [address], 09/29/2022 06:55:22 09/30/1909/29/2022 CBC WITH DIFF RDW 15.2 % 11.5-1 4.5 high Not Available [facility] (Lab) [address], [place], [address], 09/29/2022 06:55:22 09/30/1909/29/2022 CBC WITH DIFF platelet count 157 x10'3 /uL 130-40 0 Not Available [facility] (Lab) [address], [place], [address], 09/29/2022 06:55:22 09/30/19 23 09/29/2022 CBC WITH DIFF MPV 12.3 fL 9.3-12 .2 high Not Available [facility] (Lab) [address], [place], [address], 09/29/2022 06:55:22 09/30/1909/29/2022 CBC WITH DIFF diff type AUTOMA FABY DIFFER ENTIAL Not Available [facility] (Lab) [address], [place], [address], 09/29/2022 06:55:22 09/30/19 23 09/29/2022 CBC WITH DIFF neutrophils 75.4 % Not Available [facility] (Lab) [address], [place], [address], 09/29/2022 06:55:22 09/30/1909/29/2022 CBC WITH DIFF lymphocytes 16.8 % Not Available [facility] (Lab) [address], [place], [address], 09/29/2022 06:55:22 09/30/19 23 09/29/2022 CBC WITH DIFF monocytes 6.3 % Not Available [facility] (Lab) [address] [place], [address], 09/29/2022 06:55:22 09/30/19 23 09/29/2022 CBC WITH DIFF eosinophils 0.6 % Not Available [facility] (Lab) [address] [place], [address], 09/29/2022 06:55:22 09/30/19 23 09/29/2022 CBC WITH DIFF basophils 0.2 % Not Available [facility] (Lab) [address] [place], [address], 09/29/2022 06:55:22 09/30/1909/29/2022 CBC WITH DIFF immature granulocytes 0.7 % Not Available [facility] (Lab) [address] [place], [address], 09/29/2022 06:55:22 09/30/1909/29/2022 CBC WITH DIFF abs. neutrophils 9.09 x10'3 /uL 1.80-7 .70 high Not Available [facility] (Lab) [address] [place], [address], 09/29/2022 06:55:22 09/30/1909/29/2022 CBC WITH DIFF abs. lymphocytes 2.03 x10'3 /uL 1.00-4 .80 Not Available [facility] (Lab) [address] [place], [address], 09/29/2022 06:55:22 09/30/19 23 09/29/2022 CBC WITH DIFF abs. monocytes 0.76 x10'3 /uL 0.24-0 .86 Not Available [facility] (Lab) [address] [place], [address], 09/29/2022 06:55:22 09/30/1909/29/2022 CBC WITH DIFF abs. eosinophils 0.07 x10'3 /uL 0.04-0 .36 Not Available [facility] (Lab) [place], [address], 09/29/2022 06:55:22 09/30/19 23 09/29/2022 CBC WITH DIFF abs. basophils 0.03 x10'3 /uL 0.01-0 .08 Not Available [facility] (Lab) [address] [place], [address], 09/29/2022 06:55:22 09/30/1909/29/2022 CBC WITH DIFF abs. immature grans 0.08 x10'3 /uL 0.00-0 .49 Not Available [facility] (Lab) [place], [address], 09/29/2022 06:55:22 10/02/1910/02/2022 CBC (INCL UDES DIFF/ PLT) WBC 9.6 thous and/u L 4.0 - 9.8 normal Not Available [address], [address], 10/02/2022 11:43:11 10/02/19 23 10/02/2022 CBC (INCL UDES DIFF/ PLT) RBC 3.8 selene on/uL 3.9 - 4.9 low Not Available [address], [address], 10/02/2022 11:43:11 10/02/19 23 10/02/2022 CBC (INCL UDES DIFF/ PLT) hemoglobin 9.9 g/dL 11.8 - 14.8 low Not Available [address], [address], 10/02/2022 11:43:11 10/02/19 23 10/02/2022 CBC (INCL UDES DIFF/ PLT) hematocrit 31.5 % 35.5 - 44.0 low Not Available [address], [address], 10/02/2022 11:43:11 10/02/19 23 10/02/2022 CBC (INCL UDES DIFF/ PLT) MCV 82.0 fL 82.0 - 99.0 normal Not Available [address], [address], 10/02/2022 11:43:11 10/02/19 23 10/02/2022 CBC (INCL UDES DIFF/ PLT) MCH 25.8 pg 27.2 - 32.6 low Not Available [address], [address], 10/02/2022 11:43:11 10/02/19 23 10/02/2022 CBC (INCL UDES DIFF/ PLT) MCHC 31.4 g/dL 31.5 - 35.5 low Not Available [address], [address], 10/02/2022 11:43:11 10/02/19 23 10/02/2022 CBC (INCL UDES DIFF/ PLT) RDW-CV 15.7 % 11.5 - 14.5 high Not Available [address], [address], 10/02/2022 11:43:11 10/02/19 23 10/02/2022 CBC (INCL UDES DIFF/ PLT) platelet 215 thous and/u L 140 - 350 normal Not Available [address], [address], 10/02/2022 11:43:11 10/02/19 23 10/02/2022 CBC (INCL UDES DIFF/ PLT) MPV 12.8 fL 9.3 - 12.4 high Not Available [address], [address], 10/02/2022 11:43:11 10/02/19 23 10/02/2022 CBC (INCL UDES DIFF/ PLT) absolute neutrophil 7.16 thous and/u L 1.90 - 7.00 high Not Available [address], [address], 10/02/2022 11:43:11 10/02/19 23 10/02/2022 CBC (INCL UDES DIFF/ PLT) absolute lymphocyte 1.64 thous and/u L 0.70 - 4.50 normal Not Available [address], [address], 10/02/2022 11:43:11 10/02/19 23 10/02/2022 CBC (INCL UDES DIFF/ PLT) absolute monocyte 0.64 thous and/u L 0.10 - 1.30 normal Not Available [address], [address], 10/02/2022 11:43:11 10/02/19 23 10/02/2022 CBC (INCL UDES DIFF/ PLT) absolute eosinophil 0.07 thous and/u L <0.70 normal Not Available [address], [address], 10/02/2022 11:43:11 10/02/19 23 10/02/2022 CBC (INCL UDES DIFF/ PLT) absolute basophil 0.02 thous and/u L <0.20 normal Not Available [address], [address], 10/02/2022 11:43:11 10/02/19 23 10/02/2022 CBC (INCL UDES DIFF/ PLT) absolute immature granulocyte 0.05 thous and/u L <0.03 high Not Available [address], [address], 10/02/2022 11:43:11 10/02/19 23 10/02/2022 COMPR EHENS SKYLER METAB OLIC PANEL sodium 141 mmol/ L 136 - 145 normal Not Available [address], [address], 10/02/2022 12:34:43 10/02/19 23 10/02/2022 COMPR EHENS SKYLER METAB OLIC PANEL potassium 4.0 mmol/ L 3.5 - 5.1 normal Not Available [address], [address], 10/02/2022 12:34:43 10/02/19 23 10/02/2022 COMPR EHENS SKYLER METAB OLIC PANEL chloride 103 mmol/ L 98 - 107 normal Not Available [address], [address], 10/02/2022 12:34:43 10/02/19 23 10/02/2022 COMPR EHENS SKYLER METAB OLIC PANEL glucose 73 mg/dL 74 - 106 low Not Available [address], [address], 10/02/2022 12:34:43 10/02/19 23 10/02/2022 COMPR EHENS SKYLER METAB OLIC PANEL carbon dioxide 26 mmol/ L 20 - 32 normal Not Available [address], [address], 10/02/2022 12:34:43 10/02/19 23 10/02/2022 COMPR EHENS SKYLER METAB OLIC PANEL calcium 9.1 mg/dL 8.5 - 10.1 normal Not Available [address], [address], 10/02/2022 12:34:43 10/02/19 23 10/02/2022 COMPR EHENS SKYLER METAB OLIC PANEL creatinine 0.54 mg/dL 0.60 - 1.00 low Not Available [address], [address], 10/02/2022 12:34:43 10/02/19 23 10/02/2022 COMPR EHENS SKYLER METAB OLIC PANEL eGFR 124 mL/mi n/1.7 3m2 >60 normal The eGFR is based on the CKD-E PI 2020 equat ion. To calcu late the new eGFR from a previ ous Creat inine or Cysta tin C resul t, go to https :[email or web address] butler.cyndie urena.o jane/pr jam beattyal s/kdo qi/gf r_cal culat or Not Available [address], [address], 10/02/2022 12:34:43 10/02/19 23 10/02/2022 COMPR EHENS SKYLER METAB OLIC PANEL AST 26 U/L 32 - 40 low Not Available [address], [address], 10/02/2022 12:34:43 10/02/19 23 10/02/2022 COMPR EHENS SKYLER METAB OLIC PANEL ALT 23 U/L 14 - 59 normal Not Available [address], [address], 10/02/2022 12:34:43 10/02/19 23 10/02/2022 COMPR EHENS SKYLER METAB OLIC PANEL alk phos 85 U/L 46 - 116 normal Not Available [address], [address], 10/02/2022 12:34:43 10/02/19 23 10/02/2022 COMPR EHENS SKYLER METAB OLIC PANEL albumin 2.8 g/dL 3.4 - 5.0 low Not Available [address], [address], 10/02/2022 12:34:43 10/02/19 23 10/02/2022 COMPR EHENS SKYELR METAB OLIC PANEL protein, total 6.0 g/dL 6.4 - 8.2 low Not Available [address], [address], 10/02/2022 12:34:43 10/02/19 23 10/02/2022 COMPR EHENS SKYLER METAB OLIC PANEL bilirubin, total 0.3 mg/dL 0.2 - 1.0 normal Not Available [address], [address], 10/02/2022 12:34:43 10/02/19 23 10/02/2022 COMPR EHENS SKYLER METAB OLIC PANEL urea nitrogen (BUN) 8 mg/dL 6 - 31 normal Not Available [address], [address], 10/02/2022 12:34:43 10/02/19 23 10/02/2022 URIC ACID uric acid 3.6 mg/dL 2.6 - 6.0 normal Not Available [address], [address], 10/02/2022 12:34:44 08/16/19 23 08/13/2022 US, obste tric, limit ed No observ ation record ed. [email or web address] [id number], [place], [address], 08/18/2022 16:26:41 Result Notes None recorded. Problems Name Problem SNOMED Code Status Onset Date Resolution Date Notes Provider Name and Address Organization Details Recorded Time Pregnanc y 26357277 Completed 202111/25/2022 2 uncomplic ated Angi Graff null, [facility] 3 15:11:58 Pregnanc y 78977029 Completed 2021 2 uncomplic ated Angi Graff null, [facility] 3 15:11:52 Blood group AB Rh(D) negative 413843483 Active will need Rhogam at 28 weeks, pt declines is O neg Angi Graff null, [facility] 3 15:11:52 Blood group AB Rh(D) negative 939494926 Completed will need Rhogam at 28 weeks, pt declines is O neg Angi Graff null, [place] [facility] IV 3 15:11:52 Placenta previa marginal is [id number] Completed 2021 Resolved 07/16/2022 Ang[place] Graff null, [facility] 3 15:11:52 Postpart um finding [id number] Active 2022 Kavita Britsch null, [facility] 3 14:04:17 Vaginal delivery [id number] Active 2022 Kavita Britsch null, [place] [facility] 3 14:04:17 Problem Notes None recorded. Procedures Surgical History None recorded. Imaging Results Imaging Date Name Status LastModified by Organiz ation Details LastModified Time 08/13/2022 US, obstetric, limited completed [id number], [place], [address], 08/18/2022 16:26:41 Procedure Notes None recorded. Medical Equipment None Reported. Allergies Allergen ID Allergen Name Allergen Category Reaction Reaction Severity Criticality Documentation Date Start Date Code Code System Note Provider Name and Address Organization Details Recorded Time 300153 Product containin g penicilli n (product) medicatio n Not available Not available Not available 03/04/2022 29512 8001 SNOMED Not Available Not Available Not Available 119567 cefdinir medicatio n hives rash mild mild Not available 10/01/20222022 99750 RxNorm Not Available Not Available Not Available Medications Name Sig Start Date Stop Date Status Note LastModified by Organization Details LastModified Time terconazole 0.4 % vaginal cream INSERT 1 APPLICATO RFUL VAGINALLY EVERY DAY AT BEDTIME FOR 7 DAYS 09/22 completed Not Available Not Available Not Available hydrocortis one acetate 25 mg rectal suppository 25 mg twice a day by rectal route. 10/10 completed Not Available Not Available Not Available hydrocortis one 2.5 % topical cream with perineal applicator active Not Available Not Available N ot Available Proctofoam HC 1 %-1 % 1 {applicat or} twice a day by rectal route. 10/10 completed Not Available Not Available Not Available docusate sodium 100 mg capsule 100 mg every 12 hours by oral route. 10/10 completed Not Available Not Available Not Available clobetasol 0.05 % topical ointment APPLY TO THE AFFECTED AREA TWICE DAILY 03/04 completed Not Available Not Available Not Available ibuprofen 600 mg tablet 600 mg every 6 hours by oral route. 2022 active Not Available Not Available Not Avai lable labetalol 100 mg tablet 100 mg every 12 hours by oral route. 2022 active Not Available Not Available Not Avai lable cefdinir 300 mg capsule TAKE ONE CAPSULE BY MOUTH TWICE DAILY X 7 DAYS 06/18 completed Not Available Not Available Not Available Dermoplast (with menthol) 20 %-0.5 % topical aerosol 1 {spray} 4 times a day by topical route. 2022 active Not Available Not Available Not Avai lable oxycodone 5 mg tablet 10/01 completed Not Available Not Available Not Available active Not Available Not Avai lable Not Available ferrous sulfate 324 mg (65 mg iron) tablet,stew yed release 324 mg by oral route. 2022 active Not Available Not Available Not Avai lable oxycodone 5 mg tablet,oral ONLY (not feeding tubes) 5 mg every 4 hours by oral route. 2022 active Not Available Not Available Not Avai lable Vitals Date Recorded Body height Body mass index (BMI) Body temperature Systolic blood pressure Diastolic blood pressure Provider Name and Address Organization Details Last Updated DateTime 09/08/2022 170.18 cm 33.9 kg/m2 97.8 [degF] 120 mm[Hg] 72 mm[Hg] Kimea Suze [employer] IV 12:13:25 Date Recorded Body weight Provider Name an d Address Organization Details Last Updated DateTime 09/08/2022 54459.934547 g Farzana Hewitt, [facility] [address] [facility], [place], [address], [employer] IV 09/08/2022 12:35:57 Date Recorded Body height Body mass index (BMI) Body weight Body temperature Systolic blood pressure Diastolic blood pressure Provider Name and Address Organization Details Last Updated DateTime 3 170.18 cm 34.6 kg/m2 450065. 24028 g 97.8 [degF] 120 mm[Hg] 74 mm[Hg] Delaney Remy [facility] 3 12:15:45 Date Recorded Body height Body mass index (BMI) Body weight Body temperature Systolic blood pressure Diastolic blood pressure Provider Name and Address Organization Details Last Updated DateTime 3 170.18 cm 34.3 kg/m2 60963.4 18321 g 97.7 [degF] 120 mm[Hg] 88 mm[Hg] Lorene Arciniega [employer] 3 12:21:18 Date Recorded Body height Body mass index (BMI) Body temperature Systolic blood pressure Diastolic blood pressure Provider Name and Address Organization Details Last Updated DateTime 10/01/2022 170.18 cm 32.6 kg/m2 97.6 [degF] 140 mm[Hg] 82 mm[Hg] Kavita Leon ME [facility] IV 14:15:36 Date Recorded Body weight Provider Name an d Address Organization Details Last Updated DateTime 10/01/2022 38178.357544 g Angi Graff ME [facility] IV 11/25/2022 15:11:55 Date Recorded Body height Body mass index (BMI) Body temperature Systolic blood pressure Diastolic blood pressure Provider Name and Address Organization Details Last Updated DateTime 10/07/2022 170.18 cm 31.1 kg/m2 97.7 [degF] 124 mm[Hg] 72 mm[Hg] Delaney Jonel [facility] 3 12:38:08 Date Recorded Body weight Provider Name an d Address Organization Details Last Updated DateTime 10/07/2022 78193.863405 jonathan Sanchezer [place] 11/25/2022 15:11:56 Social History Question Answer Notes LastModified by Organizat ion Details LastModified Time Tobacco Smoking Status Never Smoker Chanell jin [employer] IV 03/04/2022 14:44:20 What Is Your Level Of Alcohol Consumption? None Information not available 03/04/2022 Are You Blind Or Do You Have Difficulty Seeing? No Information not available 04/01/2022 Are You Deaf Or Do You Have Serious Difficulty Hearing? No Information not available 04/01/2022 What Type Of Diet Are You Following? REGULAR Information not available 03/04/2022 Do You Or Have You Ever Used E-cigarettes Or Vape? Never Used Electronic Cigarettes Information not available 03/04/2022 How Many Children Do You Have? 2 [email or web address] Information not available 05/19/2022 What Is Your Relationship Status? Information not available 03/04/2022 Are You Sexually Active? Yes Information not available 03/04/2022 Do You Use Any Illicit Or Recreational Drugs? No Information not available 03/04/2022 Do You Or Have You Ever Used Any Other Forms Of Tobacco Or Nicotine? No Information not available 03/04/2022 Sex: Female Functional Status Question Answer Note LastModified by Organization D etails LastModified Time What is your exercise level? Moderate Information not available 03/04/2022 Mental Status None recorded. Family History Relationship Description Onset Age of this Age Resolved Age Notes LastModified by Organization Details LastModified Time Mother Hypertensive disorder cduft Not available 2021 14:44:09 Paternal Grandmother Malignant tumor of cervix cduft Not available 2021 14:44:09 Paternal Grandmother Hypertensive disorder cduft Not available 2021 14:44:09 Medical History Condition Response Other Cancer N High Blood Pressure N Colon Cancer N Cytomegalovirus N Hyperthyroidism N MRSA N Blood Transfusion N Herpes (HSV) N Breast Cancer N Lung Cancer N Depression N Hypothyroidism N Incontinence N Panic Attacks N Neurological Disorder N Deep Vein Thrombosis N Anxiety Disorder N Autoimmune disease N Arthritis N Shingles N Tuberculosis/Positive PPD N Polycystic Ovarian Syndrome N Cervical Cancer N Hematuria N Chlamydia N Varicosities N Stroke N Seasonal allergies N Crohn's Disease N Alzheimer's/Dementia N COPD/Emphysema N Endometriosis N HPV/Genital Warts N IBS (Irritable Bowel Syndrome) N History of Abnormal Pap N High Cholesterol N Liver Disease N Fibromyalgia N Kidney Infection N Ulcer N Kidney Disease N HIV N Gallbladder disease N Sickle Cell Disease/Trait N Von Willebrand disease N ADD/ADHD N Eating Disorder N Anemia N Diabetes Mellitus (non-insulin dependent ) N Ovarian Problems N Multiple Sclerosis N Gonorrhea N Frequent Urinary Tract infections N Osteopenia N Headaches/migraines N GERD (reflux) N Ovarian Cancer N Diabetes (insulin dependent) N Seizures/Epilepsy N Fibroids Y Heart Attack N Asthma N Lupus N Endometrial Cancer N Rubella N Blood Clotting Disorder N Bipolar Disorder N Diabetes Mellitus (during ) N Ulcerative Colitis N Hepatitis N Heart Disease N Pulmonary Embolism N RPR N Chicken Pox N Osteoporosis N Gynecological History Statement/Question Response Date of Last Colonoscopy Flow Heavy Frequency of Cycle (Q days) 35 Date of LMP 01/02/2022 Most Recent Bone Density HPV Vaccine N Duration of Flow (days) 7 Most Recent Mammogram Current Control Method Age at Menarche 12 Obstetrics History GPAL:G 3 P 3 0 0 3 Type Value Multiple Births 0 Full Term 3 Induced 0 Spontaneous 0 Premature 0 Living 3 Ectopics 0 Total 3 Immunizations Vaccine Type Date Status Note Provider Nam e and Address Organization Details Recorded Time Tdap 09/29/2022 completed Kavita jin, [facility] [employer] [facility] 10/01/2022 14:04:18 Past Encounters Encounter ID Performer Location Encounter Start Date Encounter Closed Date Diagnosis/Indication Diagnosis SNOMED-CT Code Diagnosis ICD10 Code Diagnosis Note [id number] Charley Bro CNM [facility] [address] [place] [address] 03/04/2022 14:25:59 03/04/2022 15:22:59 test positive 643301799 Z32.01 Dating based on LMP 01/02. EDC 10/09 consistent with ultrasound today at 9 1/. IAN noted. Small fibroids [id number] Farzana roe CN[facility] [address] [place] [address] 04/01/2022 12:54:02 04/02/2022 10:47:32 Routine care 055010090 Z34.01 Z34.81 O09.511 O09.743 [id number] Farzana roe CNM [facility] [address] [place] [address] 05/07/2022 10:54:20 05/07/2022 11:54:45 [id number] [facility] [address] [place] [address] 05/19/2022 14:39:42 05/20/2022 11:11:55 Gestation period, 19 weeks 24504607 Z3A.19 Placenta p revia marginalis 88294779 O44.22 Pelvic rest:Do not have sex, douche, or use tampons. Do not strain or lift heavy objects. These activities may cause contractio ns or infection and put you or your baby at risk. You may need to rest more than usual. Do daily activities as tolerated. Infection screening 2437 76930 Z11.9 Vulvar care guidelines reviewed. [place] pending results. [id number] Farzana roe, [facility] [address] [place] [address] 06/18/2022 15:03:10 06/18/2022 15:58:22 screening for malformation 068898539 Z36.3 [id number] Farzana EdwardserPabloNigel roe, [facility] [address] [place] [address] 07/16/2022 12:01:30 07/16/2022 15:07:51 Low lying placenta 064503171 O44.42 Routine an tenatal care 104340113 Z34.03 Depression screening 171 336940 Z13.31 [id number] Farzana EdwardserPabloNigel roe, [facility] [address] [place] [address] 07/30/2022 15:08:36 07/30/2022 16:12:53 [id number] [facility] [address] [place] [address] 08/13/2022 10:37:50 08/13/2022 14:45:47 Gestation period, 31 weeks 80376602 Z3A.31 Routine an tenatal care 616508379 Z34.93 [id number] Sejal Schafer MD [facility] [address] [place] [address] 08/27/2022 10:53:39 08/28/2022 10:55:43 Routine care 031874766 Z34.83 Gestation period, 33 weeks 08022383 Z3A.33 Vaginal discharge 457667 006 N89.8 Candidiasis of vagina 72 972295 B37.31 [id number] Farzana LoweNigel is, [facility] [address] [place] [address] 09/08/2022 11:58:48 09/11/2022 14:12:25 Gestation period, 36 weeks 32903351 Z3A.36 [id number] [facility]igel is, [facility] [address] [place] [address] 09/15/2022 12:01:29 09/16/2022 11:15:37 [id number] Farzana LoweNigel is, [facility] [address] [place] [address] 09/22/2022 12:06:16 09/25/2022 08:59:54 [id number] Elizabeth Hernandez CNM [facility] [address] [place] [address] 10/01/2022 14:08:56 10/03/2022 15:40:49 -induced hypertension 72892986 O13.1 O13.2 O13.3 S/S of Pre-eclamp huber reviewed in detail. Caution pt to be seen right away either in the office or at hospital if BARBER, visual changes such as floaters, narrowing, and/or shortening of vision, RUQ//epiga stric pain. Checking BPs at home - target range reviewed - 150/100 or higher go to hospital for evaluation .Pt has not started labetalol. BPs low range. Denies any symptoms today. Will f/u in one week [id number] Elizabeth Hernandez CNM [facility] [address] [place] [address] 10/07/2022 12:09:25 10/08/2022 12:06:49 Depression screening 324242547 Z13.31 COUNSELING was provided today regarding the following topics:- healthy eating habits & regular exercise - continue light activity & can start lightexerc ise such as walking- Sexual activity - no vaginal penetratio n, no tampons until 6 weeks PP- may resume intercours e after 6 wks PP.- Briefly reviewed contracept skyler options & encouraged to consider preferred optionfor next visit- Continue vitamins- Baby blues & depression discussed- She denies any feelings of depression , frequent crying or feelings of harming self orothers.- EPDS is -7- Educated on the warning signs of depression and when to seek medicalatt ention.- Perineal care - use witch ria & dermaplast as needed;- Laceration s: _ laceration healing - stitches intact. right perineal swelling extending toward labia. Mildly tender. no evidence of infection. Continue sitzbaths, witch ria. Will monitor for developmen t of abscess. No evidence of perineal hematoma.- SAFE SLEEPING INSTRUCTIO NS- avoid back sleep, co-sleepin g- maintain cool environmen t- no blankets or other objects in crib that could present hazard to infant.- FOLLOW-UP: Schedule a follow-up appointmen t in 4 wks. RTO sooner if experienci ng problems. -induced hypertension [id number] 9100 O13.9 S/S of Pre-eclamp huber reviewed in detail. Caution pt to be seen right away either in the office or at hospital if BARBER, visual changes such as floaters, narrowing, and/or shortening of vision, RUQ//epiga stric pain. Checking BPs at home - target range reviewed - 150/100 or higher go to hospital for evaluation .BPs normal range today. Continue labetalol. F Health Concerns Section Related Observation LastModified by Organization Detai ls LastModified Time None Recorded Concern Status LastModified by Organization Details LastModified Time None Recorded Advance Directives Directive None Recorded Payers Encounter Date Sequence Insurance Name Policy Number Policy Pinon Covered Member ID Pinon Member ID Guarantor Name 09/08/2022 1 [place] ADMINISTRATORS - N.FORMERLY [facility], [facility] [employer] [facility] PPO [id number] [id number] Serge Cheema [id number] Serge Cheema 09/15/2022 1 [place]MINISTRAT[employer] - N.[facility] PPO [id number] A3 Serge Cheema [id number] Serge Brazelton 09/22/2022 1 [place] [employer]MIN[employer] - N.[facility] PPO [id number] A3 Serge Myrickon [id number] Serge Brazelton 10/01/2022 1 [place] [employer]EF[employer] ADMIN[employer]RAT[employer] - N.[facility] PPO [id number] A3 Serge Parkelton [id number] Serge Brazelton 10/07/2022 1 [place] [employer]AL [employer]EF[employer] ADMINISTRAT[employer] - N.[facility] PPO [id number] A3 Serge Myrickon [id number] Serge Myrickon Notes Date Note Type Note Provider Name and Address Organization Details Recorded Time 3 text/html Pt here for LILY in third trimester. +FM, denies VB, LOF. Denies BARBER, vision changes, RUQ pain, contractions Farzana Hewitt, [facility] [address] [place], [address], [facility] 09/10/2022 18:29:10 3 text/html Serge is here today for a routine OB visit. She is currently at 36.4 weeks gestation. She has no complaints or questions. She is taking vitamins. She has felt movement. She denies the presence of vaginal bleed, leaking fluid, abdominal cramps, nausea, vomiting. There are no identifiable risk factors for pre-term labor.She has a question about what is normal as far as weight gain. Farzana Hewitt CNM [address] [place], [address], [facility] IV 09/15/2022 15:04:17 3 text/html Serge is here today for a routine OB visit. She is currently at37.4 weeks gestation. She has no complaints or questions. She is taking vitamins. She has felt movement. She denies the presence of vaginal bleed, leaking fluid, abdominal cramps, nausea, vomiting. There are no identifiable risk factors for pre-term labor. Farzana Hewitt CNM [address] [place], [address], [facility] [employer] [facility] 09/24/2022 19:17:23 3 text/html Care Management - HypertensionReported bypatient.Self Care:not under emotional stress Severity:does not interfere with daily activities Associated Symptoms:no dizziness; no lightheadedness; no chest pain; no shortness of breath; no palpitations; no edema; no calf muscle cramps; no blurred vision; no confusion; no headaches; no fatigueOB ProblemReported bypatient.Context:history of hypertension Elizabeth Hernandez CNM [address] [place], [address], [facility] IV 10/03/2022 15:40:37 3 text/html Serge is here for her post check up. She is now _2_ weeks . She delivered with Elizabeth Hernandez CNM's assistance on 09/28/2022_via spontaneous vaginal delivery. Episiotomy was not performed. She received no lacerations. . Labor was _induceand her labor course was uncomplicated She had _no_anesthesia. Her course was uncomplicated. She delivered a _female infant named _Lucile_ weight was _7_ pounds and _14 ounces._No_complications were encountered, and no anomalies were identified. The infant was sent home with mother. Pt has concerns of painful mass in inner thigh area. Elizabeth Hernandez CNM [address] [place], [address], [facility] [employer] IV 10/07/2022 15:54:26 OBGyn Episode Ob Episode Information Episode Created Date Number of Fetuses Patient Bloodtype Patient rh Status Prepregnancy Weight lbs Domestic Partner Domestic Partner Phone Father Name Manager Actuarial Status 03/04/20 22 1 CLOSED Fetus Data First Name Last Name Admitted to NICU Weight (g) Sex Living Outcome Pediatric Complications Fetus ID Race Codes Race Delivery Type 3430.06 2704 M Full Term [id number] Luis E Calculation Initial Luis E Date Initial Exam Date Initial Exam Provider Initial Ultrasound Date Last Menstrual Period Date Ultra Sound Weeks Gestation 0 Eighteen To Twenty Week Luis E Update Ultra Sound Date Fundal Height At Umbil Quickening Date Ultra Sound Latest Weeks Gestation Final Luis E Confirmed By Final Luis E Confirmed Date Final Luis E Date Ultra Sound Latest Days Gestation 0 0 Menstrual History Last Menstrual Date Menses Monthly On Bcp Conception Prior Menses Frequency Hcg Plus Date Menarche Onset Age Delivery Information Delivery Date Delivery Type Labor Anesthesia Weeks Gestation Incision Type Labor Labor Length Hrs Delivered By Post Complications Tubal Sterilization Discharge Date Comments 7 Regional-Ep idural 37 HTN Discharge Information Feeding Method Contraceptive Method Maternal HG B and HCT Levels Ob Episode Information Episode Created Date Number of Fetuses Patient Bloodtype Patient rh Status Prepregnancy Weight lbs Domestic Partner Domestic Partner Phone Father Name Manager Actuarial Status 04/01/20 22 1 AB Negative Donovan CLOSED Fetus Data First Name Last Name Admitted to NICU Weight (g) Sex Living Outcome Pediatric Complications Fetus ID Race Codes Race Delivery Type Ariane false 3543.68 75 F true Full Term None [id number] Problems Problem Notes elevated 1hr 3hr WNL Problem Name Start Date End Date Resolution Snomed Code Not e 04/01/2022 [id number] 2 uncompl icated Blood group AB Rh(D) negative [id number] will need Rho austin at 28 weeks, pt declines is O neg Placenta previa marginalis 05/19/2022 SELFRESOLVED [id number] Resolved 023 Luis E Calculation Initial Luis E Date Initial Exam Date Initial Exam Provider Initial Ultrasound Date Last Menstrual Period Date Ultra Sound Weeks Gestation 10/09/2022 04/01/2022 03/04/2022 01/02/2022 9 Eighteen To Twenty Week Luis E Update Ultra Sound Date Fundal Height At Umbil Quickening Date Ultra Sound Latest Weeks Gestation Final Luis E Confirmed By Final Luis E Confirmed Date Final Luis E Date Ultra Sound Latest Days Gestation 0 [email or web address] 05/07/2022 023 0 Pre-christina Flowsheet Flowsheet Date 04/01/2022 Chapman Score Blood Edema Fundus Height Fundus Units Glucose Ketones Leukocytes Nitrite Labor Signs Protein Cervic Dilation Cervic Effacement Cervic Station none none neg Type Weight in lbs Pre/Post Dialysis Refused With clothes 196.870341340631 BP Diastolic BP Location Tested BP Systolic BP Type 70 110 sitting Fetus Heart Rate Present A 150 Fetus Movement Comments oriented to practice, N/V pe rsists but improved-discussed Vit B6 and UnisomLabs pending Flowsheet Date 05/07/2022 Chapman Score Blood Edema Fundus Height Fundus Units Glucose Ketones Leukocytes Nitrite Labor Signs Protein Cervic Dilation Cervic Effacement Cervic Station 18 Cramping Type Weight in lbs Pre/Post Dialysis Refused Weight 198.107627714020 BP Diastolic BP Location Tested BP Systolic BP Type 88 R arm 130 sitting Fetus Heart Rate Present Fetus Movement A Yes Comments Flowsheet Date 05/19/2022 Chapman Score Blood Edema Fundus Height Fundus Units Glucose Ketones Leukocytes Nitrite Labor Signs Protein Cervic Dilation Cervic Effacement Cervic Station none Type Weight in lbs Pre/Post Dialysis Refused With clothes 198.185831115803 BP Diastolic BP Location Tested BP Systolic BP Type 80 L arm 122 sitting Fetus Heart Rate Present A 144 Present Fetus Movement A Yes Comments Anatomy today: incomplete, n eed heart views. Marginal Previa. Pelvic Rest guidelines reviewed. Pt switched soaps and reports vaginal itching/discharge- sureswab sent. Flowsheet Date 06/18/2022 Chapman Score Blood Edema Fundus Height Fundus Units Glucose Ketones Leukocytes Nitrite Labor Signs Protein Cervic Dilation Cervic Effacement Cervic Station none neg Type Weight in lbs Pre/Post Dialysis Refused With clothes 205.905772459319 BP Diastolic BP Location Tested BP Systolic BP Type 80 130 sitting Fetus Heart Rate Present Fetus Movement A Yes Comments Anatomy complete, low lying placenta recheck at 28 weeks Flowsheet Date 07/16/2022 Chapman Score Blood Edema Fundus Height Fundus Units Glucose Ketones Leukocytes Nitrite Labor Signs Protein Cervic Dilation Cervic Effacement Cervic Station none neg Type Weight in lbs Pre/Post Dialysis Refused With clothes 206.759377727212 BP Diastolic BP Location Tested BP Systolic BP Type 70 110 sitting Fetus Heart Rate Present Fetus Movement A Yes Comments LLP resolved, order for Rhog am given , declines per pt is O neg and they didn't get Rhogam with prior pregnancies 3rd tri labs today Flowsheet Date 07/30/2022 Chapman Score Blood Edema Fundus Height Fundus Units Glucose Ketones Leukocytes Nitrite Labor Signs Protein Cervic Dilation Cervic Effacement Cervic Station none 30 none none neg Type Weight in lbs Pre/Post Dialysis Refused With clothes 210.464095086740 BP Diastolic BP Location Tested BP Systolic BP Type 70 122 sitting Fetus Heart Rate Present A 130 Fetus Movement A Yes Comments passed 3hr if needs to have a CS desires BTL discussed needs to del at [facility] Flowsheet Date 08/13/2022 Chapman Score Blood Edema Fundus Height Fundus Units Glucose Ketones Leukocytes Nitrite Labor Signs Protein Cervic Dilation Cervic Effacement Cervic Station none Type Weight in lbs Pre/Post Dialysis Refused Weight 214.649721047025 BP Diastolic BP Location Tested BP Systolic BP Type 74 138 Fetus Heart Rate Present A 140 Present Fetus Movement A Yes Comments No OB complaints. Flowsheet Date 08/27/2022 Chapman Score Blood Edema Fundus Height Fundus Units Glucose Ketones Leukocytes Nitrite Labor Signs Protein Cervic Dilation Cervic Effacement Cervic Station 30 none trace Type Weight in lbs Pre/Post Dialysis Refused Weight 214.496770216889 BP Diastolic BP Location Tested BP Systolic BP Type 82 124 Fetus Heart Rate Present A 145 Fetus Movement A Yes Comments c/o vaginal irritation Flowsheet Date 09/08/2022 Chapman Score Blood Edema Fundus Height Fundus Units Glucose Ketones Leukocytes Nitrite Labor Signs Protein Cervic Dilation Cervic Effacement Cervic Station none neg Type Weight in lbs Pre/Post Dialysis Refused With clothes 216.581066526789 BP Diastolic BP Location Tested BP Systolic BP Type 72 120 standing Fetus Heart Rate Present Fetus Movement Comments GBS with sensitivities Flowsheet Date 09/15/2022 Chapman Score Blood Edema Fundus Height Fundus Units Glucose Ketones Leukocytes Nitrite Labor Signs Protein Cervic Dilation Cervic Effacement Cervic Station none none neg Type Weight in lbs Pre/Post Dialysis Refused With clothes 221.953680615430 BP Diastolic BP Location Tested BP Systolic BP Type 74 120 sitting Fetus Heart Rate Present A 140 Fetus Movement A Yes Comments GBS neglabor precautions rev iewed Flowsheet Date 09/22/2022 Chapman Score Blood Edema Fundus Height Fundus Units Glucose Ketones Leukocytes Nitrite Labor Signs Protein Cervic Dilation Cervic Effacement Cervic Station 1+ 37 none none neg Type Weight in lbs Pre/Post Dialysis Refused With clothes 219.185979622736 BP Diastolic BP Location Tested BP Systolic BP Type 88 R arm 120 sitting Fetus Heart Rate Present A 140 Fetus Movement A Yes Comments Flowsheet Date 10/01/2022 Chapman Score Blood Edema Fundus Height Fundus Units Glucose Ketones Leukocytes Nitrite Labor Signs Protein Cervic Dilation Cervic Effacement Cervic Station Type Weight in lbs Pre/Post Dialysis Refused With clothes 208.48039591843 BP Diastolic BP Location Tested BP Systolic BP Type 82 L arm 140 sitting Fetus Heart Rate Present Fetus Movement Comments Flowsheet Date 10/07/2022 Chapman Score Blood Edema Fundus Height Fundus Units Glucose Ketones Leukocytes Nitrite Labor Signs Protein Cervic Dilation Cervic Effacement Cervic Station Type Weight in lbs Pre/Post Dialysis Refused With clothes 198.460255373285 BP Diastolic BP Location Tested BP Systolic BP Type 72 124 sitting Fetus Heart Rate Present Fetus Movement Comments Menstrual History Last Menstrual Date Menses Monthly On Bcp Conception Prior Menses Frequency Hcg Plus Date Menarche Onset Age 0801/02/2022 Genetic Screening And Infection History Question Response Note Recent Travel History Outside of Country false Cystic Fibrosis false Any Other Genetic History false Andre Disease false Other Infection History false Thalassemia (Costa Rican, Setswana, Mediterranean, Or Background): MCV < 80 false Patient Or Baby's Father Had A Child With Defects Not Listed Above false Live With Someone With TB Or Exposed To TB false Patient's Age Will Be 35 Years Or Older At Estim ated Date of Delivery false Recurrent Loss, Or A Stillbirth false Hemoglobinopathy Or Carrier false Patient Or Partner Has History Of Genital Herpes false Intellectual Disability/Autism false Maternal Metabolic Disorder (eg, Type 1 Diabetes , PKU) false History of Hepatitis false Zack-Sachs (eg, Mu-Ism, Cajun, Omani-Zarephath) f alse History Of STD, Gonorrhea, Chlamydia, HPV, Syphi lis false Prior GBS-infected child false History of HIV false Personal or Family History o f Neural Tube Defect (Meningomyelocele, Spina Bifida, Or Anencephaly) false Hemophilia Or Other Blood Disorders false Mental Retardation/Autism false Marsing's Chorea false If Yes, Was Person Tested For Fragile X? false Other Inherited Genetic Or Chromosomal Disorder false If Yes, Agent(s) And Strength/Dosage false Sickle Cell Disease Or Trait () false Personal or Family History of Congenital Heart D efect false Rash Or Viral Illness Since Last Menstrual Perio d false Muscular Dystrophy false Medications (including Suppl ements, Vitamins, Herbs, OTC Drugs), Illicit/Recreational Drugs, Alcohol false Other Structural Defect false Down Syndrome false Delivery Information Delivery Date Delivery Type Labor Anesthesia Weeks Gestation Incision Type Labor Labor Length Hrs Delivered By Post Complications Tubal Sterilization Discharge Date Comments 3 Induce d None 38.3 Elizabeth Li CNM Hypertension 09/29/2022 on labetalol 100mg BID Discharge Information Feeding Method Contraceptive Method Maternal HG B and HCT Levels Breast Ob Episode Information Episode Created Date Number of Fetuses Patient Bloodtype Patient rh Status Prepregnancy Weight lbs Domestic Partner Domestic Partner Phone Father Name Manager Actuarial Status 03/04/20 22 1 CLOSED Fetus Data First Name Last Name Admitted to NICU Weight (g) Sex Living Outcome Pediatric Complications Fetus ID Race Codes Race Delivery Type 3883.65 [id number] F Full Term [id number] Luis E Calculation Initial Luis E Date Initial Exam Date Initial Exam Provider Initial Ultrasound Date Last Menstrual Period Date Ultra Sound Weeks Gestation 0 Eighteen To Twenty Week Luis E Update Ultra Sound Date Fundal Height At Umbil Quickening Date Ultra Sound Latest Weeks Gestation Final Luis E Confirmed By Final Luis E Confirmed Date Final Luis E Date Ultra Sound Latest Days Gestation 0 0 Menstrual History Last Menstrual Date Menses Monthly On Bcp Conception Prior Menses Frequency Hcg Plus Date Menarche Onset Age Delivery Information Delivery Date Delivery Type Labor Anesthesia Weeks Gestation Incision Type Labor Labor Length Hrs Delivered By Post Complications Tubal Sterilization Discharge Date Comments 9 38 Discharge Information Feeding Method Contraceptive Method Maternal HG B and HCT Levels
--- OUTSIDE RECORDS SUMMARY | 2024-08-21 11:35 | XMS_ITS | Encounter Summary ---
Author Organization [facility] Address [facility] [place] [address] Care Team Providers Care Senior Environmental Technician Name Role Phone Mayco Mixon DO Primary Care Provider [phone] Encounter Details Date Type Department Care Team (Late st Contact Info) Description 06/05/2024 MyChart Message Enc [facility] Family Medicine [address] [address] Mayco Mixon DO [address] [place] [address] FMLA + Short-Term Disability Paperwork Social History Tobacco Use Types Packs/Day Years Used Date Smoking Tobacco: Never Passive Smoke Exposure: Past Smokeless Tobacco: Never Alcohol Use Standard Drinks/Week Comments Not Currently 0 (1 standard drink = 0.6 oz pur e alcohol) socially B1300 Health Literacy Answer Date Recor ded How often do you need to hav e someone help you when you read instructions, pamphlets, or other written material from your doctor or pharmacy? Never 06/06/2024 [facility] Utilities Answer Date Recorded In the past 12 months has e [employer], gas, oil, or water [employer] threatened to shut off services in your home? No 06/06/2024 Humiliation, Afraid, Rape, and Kick questionnair e Answer Date Recorded Within the last year, have y ou been afraid of your partner or ex-partner? No 06/06/2024 Within the last year, have y ou been humiliated or emotionally abused in other ways by your partner or ex-partner? No Within the last year, have y ou been kicked, hit, slapped, or otherwise physically hurt by your partner or ex-partner? No 06/06/2024 Within the last year, have y ou been raped or forced to have any kind of sexual activity by your partner or ex-partner? No 06/06/2024 Social Connection and Isolat ion Panel [NHANES] Answer Date Recorded In a typical week, how many times do you talk on the phone with family, friends, or neighbors? More than three times a week 06/06/2024 How often do you get togethe r with friends or relatives? Twice a week 06/06/2024 How often do you attend chur or church services? More than 4 times per year 06/06/2024 Do you belong to any clubs o r organizations such as restorationism groups, unions, fraternal or athletic groups, or school groups? No 06/06/2024 How often do you attend meet ings of the clubs or organizations you belong to? Never 06/06/2024 Are you , , di vorced, , never , or living with a partner? 06/06/2024 AUDIT-C Answer Date Recorded Q1: How often do you have a drink containing alc ohol? 2-4 times a month 06/06/2024 Q2: How many drinks containi ng alcohol do you have on a typical day when you are drinking? 3 or 4 06/06/2024 Q3: How often do you have si x or more drinks on one occasion? Never 06/06/2024 Overall Financial Resource Strain (CARDIA) Answe r Date Recorded How hard is it for you to pa y for the very basics like food, housing, medical care, and heating? Not hard at all 06/06/2024 PHQ-2 Answer Date Recorded Patient Health Questionnaire-2 Score 0 06/05/2024 [facility] of Occupat ional Health - Occupational Stress Questionnaire Answer Date Recorded Do you feel stress - tense, restless, nervous, or anxious, or unable to sleep at night because your mind is troubled all the time - these days? Not at all 06/06/2024 Exercise Vital Sign Answer Date Recorde d On average, how many days pe r week do you engage in moderate to strenuous exercise (like a brisk walk)? 3 days 06/06/2024 On average, how many minutes do you engage in exercise at this level? 30 min 06/06/2024 Hunger Vital Sign Answer Date Recorded Within the past 12 months, y ou worried that your food would run out before you got the money to buy more. Never true 06/06/19 25 Within the past 12 months, t he food you bought just didn't last and you didn't have money to get more. Never true 06/06/2024 PRAPARE - Transportation Answer Date Re corded In the past 12 months, has l ack of transportation kept you from medical appointments or from getting medications? No 11/2024 In the past 12 months, has l ack of transportation kept you from meetings, work, or from getting things needed for daily living? No 06/06/2024 Housing Stability Vital Sign Answer Lacho e [...] place to sleep or slept in a detention (including now)? No 09/27/2022 Housing Stability Vital Sign Answer Lacho e Recorded In the last 12 months, was t here a time when you were not able to pay the mortgage or rent on time? No 06/06/2024 In the past 12 months, how m any times have you moved where you were living? 1 06/06/2024 At any time in the past 12 m [facility], were you homeless or living in a detention (including now)? No 06/06/2024 Depression Answer Date Recor ded Last EPDS Total Score 7 09/29/2022 Last EPDS Self Harm Result 09/29 Comments No Sex and Gender Information Value Date Recorded Sex Assigned at Female 06/26/2024 8:45 AM MATERIAL FLOW ENGINEER Legal Sex Female 7:33 PM CDT Gender Identity Not on file Sexual Orientation Not on file documented as of this encounter Functional Status * Question Answer Date of Assessment Author Status Do you have serious difficulty walking or climbing stairs? No 06/06/2024 10:00 PM Lay Thomson RN A ctive * Question Answer Date of Assessment Author Status Do you have difficulty dressing or bathing? No 06/06/2024 10:00 PM Lay Thomson RN Active Because of a physical, mental, or emotional condition, do you have difficulty doing errands alone such as visiting a doctor's office or shopping? No 06/06/2024 10:00 PM Lay Thomson RN Ac tive * Are you deaf or do you have serious difficulty hearing Answer Date of Assessment Author Status No 05/14/2024 3:35 PM Katy Amaya RN Active * Are you blind or do you have serious difficulty seeing, even when wearing glasses? Answer Date of Assessment Author Status No 05/14/2024 3:35 PM Katy Amaya RN Active * Do you have serious difficulty walking or climbing stairs? Answer Date of Assessment Author Status No 05/14/2024 3:35 PM Katy Amaya RN Active * Do you have difficulty dressing or bathing? Answer Date of Assessment Author Status No 05/14/2024 3:35 PM Katy Amaya RN Active * Because of a physical, mental, or emotional condition, do you have difficulty doing errands alone such as visiting a doctor's office or shopping? Answer Date of Assessment Author Status No 05/14/2024 3:35 PM Katy Amaya RN Active documented as of this encounter Mental Status * Question Answer Entry Date Author Status Because of a physical, mental, or emotional condition, do you have serious difficulty concentrating, remembering, or making decisions? No 06/06/2024 10:00 PM Lay Thomson RN Active * Because of a physical, mental, or emotional condition, do you have serious difficulty concentrating, remembering, or making decisions? Answer Entry Date Author Status No 05/14/2024 3:35 PM Katy Amaya RN Active documented in this encounter Plan of Treatment Upcoming Encounters Date Type Department Care Team (Late st Contact Info) Description 05/14/2025 3:40 PM MATERIAL FLOW ENGINEER Office Visit [facility] Family Medicine [address] [place] [address] Mayco Mixon DO [address] [place] [address] documented as of this encounter Goals Goal Patient Goal Type Associated Problems Recent Progress Patient-Stated? Author Health - patient able to perform ADLs independently Lifestyle No Koerog i er, Elias Mccoy RN documented as of this encounter Visit Diagnoses Not on filedocumented in this encounter Additional Health Concerns Infection Onset Date Last Indicated Resolved Time COVID-19 Rule Out 06/06/2024 06/06/2024 06/06/2024 10:12 PM MATERIAL FLOW ENGINEER Assessment Noted Time PHQ-9 Depression Total Score: 0 06/05/19 25 12:32 PM MATERIAL FLOW ENGINEER documented as of this encounter Care Teams Senior Environmental Technician Relationship Specialty Start Date End Date Mayco Mixon DO [address] [place] [address] PCP - General FAMILY PRACTICE 05/04/24 documented as of this encounter
--- OUTSIDE RECORDS SUMMARY | 2024-08-21 11:35 | XMS_ITS | Referral Summary ---
Author Organization [facility] Address [address] [place] [phone] Care Team Providers Care Specialty Plant Supervisor Name Role Phone Mayco Mixon DO Primary Care Provide r Kailash Mar MD Unavailable [phone] Encounters Date Type Department Care Team Description 08/01/2024 Orders Only [facility] [address] [place] [address] Kailash Mar MD Secondary neuroendocrine tumors (HCC) 07/31/2024 Orders Only [facility] Oncology [address] [place] [address] Floor [address] [place] [phone] Kailash Mar MD Secondary neuroendocrine tumors (HCC) (Primary Dx) 06/23/2024 9:55 AM BODY PAINTER - 06/23/2024 11:59 PM BODY PAINTER Hospital Encounter [facility] [address] [place] [address] Diagnosis unknown Discharge Disposition: Discharge to home or self care 06/22/2024 Orders Only [facility] Surgery [address] 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) from Last 3 Months Allergies Active Allergy Reactions Criticality Noted Date Comments Amoxicillin Hives Medium Penicillins Hives Medium Medications PNV with [id number] ( VITAMIN PLUS LOW IRON) 27 mg [...] CHEST PAIN NEC Urinary tract infection 11/24/2012 Immunizations Immunization Administration Dates Next Due Tdap 09/14/2018 Social History Tobacco Use Types Packs/Day Years Used Date Smoking Tobacco: Never Smokeless Tobacco: Never Alcohol Use Standard Drinks/Week Comments Not Currently 0 (1 standard drink = 0.6 oz pur e alcohol) Comments Unknown Sex and Gender Information Value Date Recorded Sex Assigned at Not on file Legal Sex Female 1:58 AM BODY PAINTER Gender Identity Not on file Sexual Orientation Not on file Last Filed Vital Signs Vital Sign Reading Time Taken Comments Blood Pressure 124/85 06/13/2024 2:02 PM BODY PAINTER Pulse 88 11/01/2018 9:27 PM CDT Temperature 36.8 C (98.3 F) 06/13/2024 1:55 PM BODY PAINTER Respiratory Rate - - Oxygen Saturation 100% 06/13/2024 1:55 PM BODY PAINTER Inhaled Oxygen Concentration - - Weight 81.6 kg (180 lb) 06/13/2024 1:55 PM BODY PAINTER Height 169 cm (5' 6.54 ) 06/13/2024 1:55 PM BODY PAINTER Body Mass Index 28.59 06/13/2024 1:55 PM BODY PAINTER Plan of Treatment Not on file Procedures Procedure Name Priority Date/Time Associated Diagnosis Comments SURGICAL PATHOLOGY Routine 08/01/2024 7: 27 AM BODY PAINTER Secondary neuroendocrine tumors (HCC) PET OUTSIDE CONSULT Routine 06/23/2024 9:56 AM BODY PAINTER Diagnosis unknown THINPREP IMAGING PAP REFLEX HPV MRNA E6/E7 Routine 11/04/2016 10:53 AM CDT from Last 3 Months or Most Recently Relevant to Health Maintenance Results * Surgical pathology (08/01/2024 7:27 AM BODY PAINTER) Tissue (Miscellaneous) 08/01/2024 7:27 AM BODY PAINTER 08/01/2024 7:27 AM BODY PAINTER Narrative [facility] - 08/10/2024 4:31 PM CDT EPIC results best viewed via link to PDF [facility] Pathology Consult Service [address], [place] [address] Note to Patients: This report [...] SURGICAL PATHOLOGY REPORT * Consult Report * [facility] is providing an additional review of previously collected tissue. FINAL Patient Name: PUMA CHEEMA Address: [address] [place] [address] Gender: F : 1990 (Age: 34) [facility] #: [id number] Patient Type: SABINE Location: UNKNOWN Taken: 08/01/2024 Received: 08/01/2024 Accessioned: 08/02/2024 Reported: 08/10/2024 Physician(s): Saeid Mar M.D. [facility] Pathology Attn Pathology Dept ATTN: Pathology Department [facility] Pathology- 4th Floor [facility] [address] [facility] [place] [address] P: [phone] F: [phone] Diagnosis: Consult material received from [facility], [place], [place] (OSC: [id number]; 07/21/2024) A. 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 niles/08/09/2024 20:00 By this signature, I attest that [...] Received for review are two slides labeled [id number], accompanied by a corresponding pathology report. The material originates from [facility], [place], [place]. Selected slide(s) may be digitally scanned for our files, and all materials are returned to the referring institution, along with a copy of our final report. Any testing required for diagnostic purposes was performed in the Department of Pathology and Immunology at [facility], [address] [place] [id number] CLIA # [id number] The performance characteristics of the testing cited in this report (if any) were determined by the [facility] Department of Pathology and Immunology [facility], as part of an ongoing quality improvement coordinator (rn) program and in compliance with federally mandated [...] and the performance characteristics determined by the [facility], [facility] Department of Pathology and Immunology. It has not been cleared or approved by the U.S. Food and Drug Administration. Any test designated as LDT was developed and its performance characteristics determined by [facility]. It has not been cleared or approved by the FDA. This test is used for clinical purposes and should not be regarded as investigational or for research. Report images and/or scanned reports, if included, only viewable in PDF version of report. Kailash Mar MD LAB PATHOLOGY ORDERABLES Final Result [facility] [address] [address] * PET Outside Consult (06/23/2024 9:56 AM BODY PAINTER) Anatomical Region Laterality Modality N/A Nuclear Medicine 06/23/2024 10:5 0 AM BODY PAINTER Impressions 06/23/2024 1:58 PM BODY PAINTER 1. Intensely radiotracer avid pancreatic head mass [...] images may or may not represent the [place] source data set and thus may contain changes that may lower the accuracy of this second-opinion interpretation. Dictated by: Ray Alcazar MD The radiology attending physician has personally reviewed this study, and had reviewed and/or edited this written report and agrees with it. Electronically signed by: Dave Amaro MD, Ph.D Narrative 06/23/2024 1:58 PM BODY PAINTER EXAMINATION: RADIOLOGY CONSULTATION ON OUTSIDE IMAGING STUDY . STUDY INITIALLY PERFORMED: 06/22/2024, images acquired at [facility]. TYPE OF STUDY: Dotatate-PET/CT. The images available for review consisted of axial attenuation-corrected and uncorrected PET images and axial CT images. The total scanned area was skull vertex to the toes. The study was interpreted on the [id number] workstation. The protocol was adequate to address [...] STUDY INITIALLY PERFORMED: 06/22/2024, images acquired at [facility]. TYPE OF STUDY: Dotatate-PET/CT. The images available for review consisted of axial attenuation-corrected and uncorrected PET images and axial CT images. The total scanned area was skull vertex to the toes. The study was interpreted on the [id number] workstation. The protocol was adequate to address [...] images may or may not represent the [place] source data set and thus may contain changes that may lower the accuracy of this second-opinion interpretation. Dictated by: Ray Alcazar MD The radiology attending physician has personally reviewed this study, and had reviewed and/or edited this written report and agrees with it. Electronically signed by: Dave Amaro MD, Ph.D us Kailash Mar MD IMG PET PROCEDURES Final Result * ThinPrep Imaging Pap Reflex HPV mRNA E6/E7 (11/04/2016 10:53 AM CDT) CLINICAL INFORMATION [facility] Comment:Information not prov ided LMP: 10/28/16 [facility] PREV. PAP: [facility] Comment:INFORMATION NOT PROV IDED PREV. BX: [facility] Comment:INFORMATION NOT PROV IDED SOURCE: [facility] HISTORICAL RESULTS Comment:Cervix, Endocervix STATEMENT OF ADEQUACY: [facility] HISTORICAL RESULTS Comment:Satisfactory for lan luation. Endocervical/transformation zone component present. INTERPRETATION/RESU LT: [facility] Comment:Negative for intraep ithelial lesion or malignancy. COMMENT: [facility] HISTORICAL RESULTS Comment:This Pap test has be en evaluated with computer assisted technology. WEB SPECIALIST: [facility] HISTORICAL RESULTS Comment:FAMILIA, CT(ASCP) CT scr eening location: [place] [address] [place] [address] 11/04/2016 10:5 3 AM CDT 11/09/2016 4:35 PM CDT Narrative [facility] HISTORICAL RESULTS - 11/09/2016 4:21 PM CDT 0 PERFORMING LAB: , [place] [address] [facility] [address] Carlos John MD us Axel Birch DO LAB PATHOLOGY ORDERABL ES Final Result [facility] HISTORICAL RESULTS from Last 3 Months or Most Recently Relevant to Health Maintenance Insurance ANTH ACCESS ANTH ACCESS Care Teams Specialty Plant Supervisor Relationship Specialty Start Date End Date Mayco Mixon [place] [address] [place] [address] PCP - General Family Medicine 05/11/24 Kailash Mar MD [facility] [address] [place] [address] Consulting Physician Medical Oncology 05/12/24
--- OUTSIDE RECORDS SUMMARY | 2024-08-21 11:35 | XMS_ITS | Clinical Summary ---
Author Organization [facility] Address [address] [place] [address] Care Team Providers Care Supervisor Car Installations Name Role Phone Mayco Mixon DO Primary Care Provider Allergies Active Allergy Reactions Criticality Noted Date Comments Cefdinir Hives,Rash Low 09/27/2022 Penicillins Hives 09/24/2022 Medications oxyCODONE (OXY-IR) 5 MG capsule Take 1 capsule (5 mg total) by mouth every 6 (six) hours as needed (pain). Active Active Problems Problem Noted Date Diagnosed Date Cholecystostomy tube dysfunction 06/06/2024 Hypoalbuminemia 05/17/2024 Normocytic anemia 05/17/2024 Pancreatitis (HHS/HCC) 05/14/2024 Neuroendocrine tumor of pancreas 05/10/2024 Choledocholithiasis 05/01/2024 Abdominal pain 04/29/2024 Biliary obstruction 04/29/2024 Resolved Problems Problem Noted Date Diagnosed Date Resolved Date Hypokalemia 05/17/2024 06/05/2024 Hyponatremia 05/17/2024 06/05/2024 Acute cholecystitis 05/14/2024 06/05/19 25 Vaginal delivery (HHS/HCC) 09/28/2022 1 07/11/2023 Normal course (HHS/HCC) 09/28/2022 05/10/2024 (HHS/HCC) 09/27/2022 09/29/19 23 Encounters Date Type Department Care Team Description 08/03/2024 12:36 PM SUPER[employer]OR [employer] - 08/03/2024 10:49 PM [employer]PER[employer] Emergency [facility] [place] [address] Qiana Rivera MD Dale, Maurice D, DO Abdominal Pain Discharge Disposition: Transfer to Acute Care Hospital 08/03/2024 Travel 06/26/2024 6:29 PM [employer] - 06/26/2024 9:07 PM [employer] Emergency [facility] [place] [address] [place] [address] Oneida Gilmore MD Abdominal Pain Discharge Disposition: Home or Self Care (Routine Discharge) 06/26/2024 8:47 AM [employer] - 06/26/2024 6:28 PM [employer] Hospital Encounter [facility] Interventional [place] [address] Maggie Duenas MD Discharge Disposition: Home or Self Care (Routine Discharge) 06/26/2024 Travel 06/08/[address] [phone] Mayco Mixon, TCM 06/07/2024 1:51 PM [employer] Anesthesia Event [facility] Interventional [place] [address] Carlos Enrique Lazaro MD Ruiz, Eloy A, MD 06/06/2024 2:54 PM [employer] - 06/07/2024 6:51 PM [employer] Hospital Encounter [facility] Clinical Decision [place] [address] Ariel Monson MD Jumean, Khaled, MD McHale, Sara A, MD Medical Problem Discharge Disposition: Home or Self Care (Routine Discharge) 06/06/2024 Travel 06/05/2024 12:40 PM [employer] Telemedicine [address] [phone] Mayco Mixon DO Hospital Follow Up 06/05/2024 Travel 06/05/2024 [employer] Message Enc [facility] Family Medicine - [address] [phone] Mayco Mixon, DO FMLA + Short-Term Disability Paperwork from Last 3 Months Immunizations Name Administration Dates Next Due MODERNA COVID-19 (12+) MRNA, LNP-S, PF, 100 MCG/ 0.5 ML DOSE 02/13/2021,01/16/2021 Tdap (Boostrix) 09/29/2022 Tdap (Generic) 09/14/2018 Family History Medical History Relation Comments No Known Problems Brother Diabetes type II Father Thyroid cancer Maternal Grandmother Hypertension Mother Multiple Sclerosis Mother arrhythmia Paternal Grandfather Cervical cancer Paternal Grandmother No Known Problems Sister Relation Status Comments Brother Alive Father Alive Maternal Grandfather Alive Maternal Grandmother Mother Alive Paternal Grandfather Alive Paternal Grandmother Sister Alive Social History Tobacco Use Types Packs/Day Years Used Date Smoking Tobacco: Never Passive Smoke Exposure: Past Smokeless Tobacco: Never Tobacco Cessation:Counseling Given: Not Answered Alcohol Use Standard Drinks/Week Comments Not Currently 0 (1 standard drink = 0.6 oz pur e alcohol) socially [id number] Health Literacy Answer Date Recor ded How often do you need to hav e someone help you when you read instructions, pamphlets, or other written material from your doctor or pharmacy? Never 06/06/2024 [facility] Utilities Answer Date Recorded In the past 12 months has e [employer], gas, oil, or water [employer] threatened to shut off services in your [...] 06/06/2024 How often do you attend chur ch or catholic services? More than 4 times per year 06/06/2024 Do you belong to any clubs o r organizations such as jewish groups, unions, fraternal or athletic groups, or [...] Recorded Patient Health Questionnaire-2 Score 0 06/05/2024 [facility] Answer Date Recorded [...] place to sleep or slept in a halfway (including now)? No 09/27/2022 Housing Stability Vital Sign Answer Lacho e Recorded In the last 12 months, was t here a time when you were not able to pay the mortgage or rent on time? No 06/06/2024 In the past 12 months, how m any times have you moved where you were living? 1 06/06/2024 At any time in the past 12 m [facility], were you homeless or living in a halfway (including now)? No 06/06/2024 Depression Answer Date Recor ded Last EPDS Total Score 7 09/29/2022 Last EPDS Self Harm Result 09/29 Comments No Sex and Gender Information Value Date Recorded Sex Assigned at Female 06/26/2024 8:45 AM [employer] Legal Sex Female 7:33 PM CDT Gender Identity Not on file Sexual Orientation Not on file Last Filed Vital Signs Vital Sign Reading Time Taken Comments Blood Pressure 124/75 08/03/2024 10:30 PM [employer] Pulse 109 08/03/2024 7:00 PM [employer] Temperature 37 C (98.6 F) 08/03/2024 12:25 PM [employer] Respiratory Rate 18 08/03/2024 12:25 PM [employer] Oxygen Saturation 97% 08/03/2024 10:30 PM [employer] Inhaled Oxygen Concentration - - Weight 83.9 kg (185 lb) 08/03/2024 12:25 PM [employer] Height 170.2 cm (5' 7 ) 08/03/2024 12:25 PM [employer] Body Mass Index 28.98 08/03/2024 12:25 PM [employer] Plan of Treatment Upcoming Encounters Date Type Department Care Team (Late st Contact Info) Description 05/14/2025 3:40 PM SUPER[employer] Office Visit [facility] Family Medicine - [place] [address] [place] [phone] Mayco Mixon, [address] [place] [address] Health Maintenance Due Date Last Done Comments Cervical Cancer Screening Pa p Smear (Age 30 to 64) Every 3 Years 1988 Annual Physical 01/24/1991 Hepatitis B Vaccines (1 of 3 - 19+ 3-dose series) 01/24/2007 Cervical Cancer Screening Pa p with HPV Testing (Age 30 to 64) Every 5 Years 01/24/2018 Cervical Cancer Screening with HPV 01/24/2018 COVID-19 Vaccine (3 - 2023-2 5 season) 2025 02/13/2021, 01/16/2021 Postponed from 01/30/2024 (Patient Refused) Influenza Adult (#1) 2025 Postpon ed from 02/29/2024 (Patient Refused) DTaP, Tdap and Td Vaccines ( 3 - Td or Tdap) 09/29/2032 09/29/2022, 09/14/2018 Hepatitis C Completed 04/30/2024 PHQ-2 (Physician [place]) Completed 06/05/2024 HPV Vaccines Aged Out No longer eligi ble based on patient's age to complete this topic Meningococcal B Vaccine Aged Out No l onger eligible based on patient's age to complete this topic Meningococcal Vaccine Aged Out No jaclyn mitul eligible based on patient's age to complete this topic Pneumococcal Vaccine: Pediatrics (0 to 5 Years) and At-Risk Patients (6 to 64 Years) Aged Out No longer eligible b ased on patient's age to complete this topic RSV Immunizations Under 20 Months Aged Out No longer eligible b ased on patient's age to complete this topic Goals Goal Patient Goal Type Associated Problems Recent Progress Patient-Stated? 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 Procedure Name Priority Date/Time Associated Diagnosis Comments CT ABD+PEL W CON STAT 08/03/2024 3:17 PM [employer] CULTURE, BACTERIA, BLOOD STAT 08/03/2024 1:03 PM [employer] LACTIC ACID W REFLEX (SEPSIS) STAT 08/03/2024 1:03 PM [employer] LIPASE STAT 08/03/2024 1:03 PM [employer] COMPREHENSIVE METABOLIC PANEL STAT 08/03/2024 1:03 PM [employer] CBC W/DIFF AUTOMATED STAT 08/03/2024 1:03 PM SUPERVISOR [employer] CT ABD+PEL W CON STAT 06/26/2024 8:15 PM [employer] POCT URINE (BACK OFFICE) STAT 06/26/2024 7:39 PM [employer] XR CHEST PORTABLE STAT 06/26/2024 7:3 4 PM [employer] LACTIC ACID W REFLEX (SEPSIS) STAT 06/26/2024 6:24 PM [employer] LIPASE STAT 06/26/2024 6:24 PM [employer] COMPREHENSIVE METABOLIC PANEL STAT 06/26/2024 6:24 PM [employer] PARTIAL THROMBOPLASTIN TIME,PTT STAT 06/26/2024 6:24 PM [employer] PROTHROMBIN TIME, VENOUS STAT 06/26/2024 6:24 PM [employer] CBC W/DIFF AUTOMATED STAT 06/26/2024 6:24 PM [employer]PER[employer] IR CHOLANGIOGRAM Routine 06/26/2024 9:30 AM [employer]PER[employer] Cholecystitis IR BILIARY CATH CHG STAT 06/07/2024 2 :00 PM [employer] LIPASE Routine 06/07/2024 5:10 AM [employer] COMPREHENSIVE METABOLIC PANEL Routine 06/07/2024 5:10 AM [employer] CBC W/DIFF AUTOMATED Routine 06/07/2024 5:10 AM [employer] STREP A RAPID STAT 06/06/2024 10:45 PM [employer] XR CHEST PORTABLE STAT 06/06/2024 9:1 6 PM [employer] RESPIRATORY PCR PANEL 2 STAT 06/06/19 8:35 PM [employer]PER[employer] PARTIAL THROMBOPLASTIN TIME,PTT Routine 06/06/2024 8:04 PM [employer] PROTHROMBIN TIME, VENOUS Routine 06/06/2024 8:04 PM [employer] ECG 12-LEAD Routine 06/06/2024 7:34 PM SUPERVISOR [employer] CT ABD+PEL W CON STAT 06/06/2024 3:50 PM [employer]PER[employer] LIPASE STAT 06/06/2024 3:19 PM [employer]PER[employer] COMPREHENSIVE METABOLIC PANEL STAT 06/06/2024 3:19 PM [employer] CBC W/DIFF AUTOMATED STAT 06/06/2024 3:19 PM [employer] HEPATITIS PANEL,ACUTE Routine 04/30/2024 7:53 AM [employer]PER[employer] from Last 3 Months or Most Recently Relevant to Health Maintenance Results * CT ABD+PEL W IV CON ONLY (08/03/2024 3:17 PM SUPER[employer]) Only the most recent of3 resultswithin the time period is included. Anatomical Region Laterality Modality Abdomen Computed Tomogra phy 08/03/2024 3:32 PM [employer] Impressions 08/03/2024 3:44 PM [employer] =====IMPRESSION:===== Most recent prior exam is 06/26/2024. Status post cholecystectomy. Right upper quadrant drain in place. This passes along the surface of the hepatic flexure of the colon which appears inflamed. Extensive soft tissue swelling in this area. This extends into the edge of a peripancreatic fluid collection along the anterior border of the pancreatic neck, which measures 4.5 cm in diameter and contains a small amount of internal debris. This is not present on the 06/26/2024 examination. Unclear if this is infectious or sterile. Correlation with any additional prior imaging is recommended if available. Internal debris suggests possible necrosis, blood products, or inflammation within this collection. This terminates along the margin of the gastric body wall. Extensive soft tissue swelling and inflammation which extends to the gastric wall, duodenum, pancreas, hepatic flexure of the colon. Mild left and right intrahepatic biliary dilatation. Common bile duct measures up to 9 mm, mildly dilated, this could be physiologic status post cholecystectomy. Mild free fluid in the pelvis. Ordered By: TEGAN HERNANDEZ Interpreted By: Austin Martínez, 08/03/2024 3:32 PM Narrative 08/03/2024 3:44 PM [employer] [address] [address] EXAMINATION: CT ABDOMEN AND PELVIS WITH CONTRAST EXAM DATE/TIME: 08/03/2024 3:15 PM REASON FOR EXAM: upper abdomina pain, recent pancreatic cyst removal and subtotal cholecystectomy. change in drain fluid that was high in amylase and lipase COMPARISON: 06/26/2024 TECHNIQUE: Axial imaging of the abdomen and pelvis was obtained after 100 mL Isovue-370 was injected. A dose lowering technique was used for this procedure, which may include, but is not limited to, dose reduction technique, automated exposure control, iterative reconstruction, ALARA (As Low As Reasonably Achievable), or Image Gently techniques. Oral contrast was not administered. FINDINGS: Abdomen: Adrenal glands: Unremarkable. Kidneys: No suspicious lesion or hydronephrosis. Spleen: Unremarkable. Stomach and duodenum: Wall thickening of the distal stomach and the duodenum compatible with gastritis/duodenitis. Gallbladder: Status post cholecystectomy. Right upper quadrant drain in place. This passes along the surface of the hepatic flexure of the colon which appears inflamed. Extensive soft tissue swelling in this area. This extends into the edge of a peripancreatic fluid collection along the anterior border of the pancreatic neck, which measures 4.5 cm in diameter and contains a small amount of internal debris. This terminates along the margin of the gastric body wall. No prior examination for comparison. Extensive soft tissue swelling and inflammation which extends to the gastric wall, duodenum, pancreas, hepatic flexure of the colon. Mild left and right intrahepatic biliary dilatation. Common bile duct measures up to 9 mm, mildly dilated, this could be physiologic status post cholecystectomy. No evidence of intrahepatic mass. Portal vein is patent. No mesenteric lymphadenopathy or evidence of small bowel obstruction. No free fluid or free air. No evidence of retroperitoneal lymphadenopathy. No evidence of an abdominal aortic aneurysm. Scattered fecal material and gas throughout the colon without evidence of mass or dilatation. Significant wall thickening and edema of the hepatic flexure as mentioned above. Appendix not inflamed. Pelvis: Urinary bladder and rectum are unremarkable. Uterus is identified. Mild free fluid in the pelvis. On bone windows, no evidence of suspicious skeletal lesion or acute compression fracture deformity. Limited evaluation of the lower thorax demonstrates no acute abnormality. Procedure Note Austin Martínez MD - 08/03/[address] [address] EXAMINATION: CT ABDOMEN AND PELVIS WITH CONTRAST EXAM DATE/TIME: 08/03/2024 3:15 PM REASON FOR EXAM: upper abdomina pain, recent pancreatic cyst removal andsubtotal cholecystectomy. change in drain fluid that was high in amylaseand lipase COMPARISON: 06/26/2024 TECHNIQUE: Axial imaging of the abdomen and pelvis was obtained after 100mL Isovue-370 was injected. A dose lowering technique was used for thisprocedure, which may include, but is not limited to, dose reductiontechnique, automated exposure control, iterative reconstruction, ALARA (AsLow As Reasonably Achievable), or Image Gently techniques. Oral contrast was not administered. FINDINGS: Abdomen: Adrenal glands: Unremarkable. Kidneys: No suspicious lesion or hydronephrosis. Spleen: Unremarkable. Stomach and duodenum: Wall thickening of the distal stomach and theduodenum compatible with gastritis/duodenitis. Gallbladder: Status post cholecystectomy. Right upper quadrant drain inplace. This passes along the surface of the hepatic flexure of the colonwhich appears inflamed. Extensive soft tissue swelling in this area. Thisextends into the edge of a peripancreatic fluid collection along theanterior border of the pancreatic neck, which measures 4.5 cm in diameterand contains a small amount of internal debris. This terminates along themargin of the gastric body wall. No prior examination for comparison.Extensive soft tissue swelling and inflammation which extends to thegastric wall, duodenum, pancreas, hepatic flexure of the colon. Mild left and right intrahepatic biliary dilatation. Common bile ductmeasures up to 9 mm, mildly dilated, this could be physiologic status postcholecystectomy. No evidence of intrahepatic mass. Portal vein is patent. No mesenteric lymphadenopathy or evidence of small bowel obstruction. Nofree fluid or free air. No evidence of retroperitoneal lymphadenopathy. No evidence of an abdominal aortic aneurysm. Scattered fecal material and gas throughout the colon without evidence ofmass or dilatation. Significant wall thickening and edema of the hepaticflexure as mentioned above. Appendix not inflamed. Pelvis: Urinary bladder and rectum are unremarkable. Uterus isidentified. Mild free fluid in the pelvis. On bone windows, no evidence of suspicious skeletal lesion or acutecompression fracture deformity. Limited evaluation of the lower thorax demonstrates no acuteabnormality. =====IMPRESSION:===== Most recent prior exam is 06/26/2024. Status post cholecystectomy. Right upper quadrant drain in place. Thispasses along the surface of the hepatic flexure of the colon which appearsinflamed. Extensive soft tissue swelling in this area. This extends intothe edge of a peripancreatic fluid collection along the anterior border ofthe pancreatic neck, which measures 4.5 cm in diameter and contains asmall amount of internal debris. This is not present on the 06/26/2024examination. Unclear if this is infectious or sterile. Correlation withany additional prior imaging is recommended if available. Internal debrissuggests possible necrosis, blood products, or inflammation within thiscollection. This terminates along the margin of the gastric body wall. Extensive soft tissue swelling and inflammation which extends to thegastric wall, duodenum, pancreas, hepatic flexure of the colon. Mild leftand right intrahepatic biliary dilatation. Common bile duct measures up to9 mm, mildly dilated, this could be physiologic status postcholecystectomy. Mild free fluid in the pelvis. Ordered By: TEGAN HERNANDEZ Interpreted By: Austin Martínez, 08/03/2024 3:32 PM Tegan Hernandez [facility] CT Final Resul t * LACTIC ACID W REFLEX (SEPSIS) (08/03/2024 1:03 PM SU[employer]) Only the most recent of2 resultswithin the time period is included. LACTIC ACID VENOUS 0.6 0.4 - 2.0 MMOL/L 08/03/2024 1:40 PM [employer] [facility] 08/03/2024 1:03 PM [employer]PER[employer] Tegan Hernandez [facility] Final Resul t [facility] [address] [place] [address], [place] [phone] * (ABNORMAL) COMPREHENSIVE METABOLIC PANEL (08/03/2024 1:03 PM [employer]) Only the most recent of4 resultswithin the time period is included. GLUCOSE 92 70 - 99 MG/DL 08/03/2024 1:43 PM [employer] [facility] BUN 12 7 - 18 MG/DL 08/03/2024 1:43 PM [employer] [facility] CREATININE S/P/B 0.45(L) 0.55 - 1.02 MG/DL 08/03/2024 1:43 PM [employer]PER[employer] [facility] SODIUM S/P/B 136 136 - 145 MMOL/L 08/03/2024 1:43 PM [facility] POTASSIUM S/P/B 3.6 3.5 - 5.1 MMOL/L 08/03/2024 1:43 PM [facility] CHLORIDE S/P/B 108 97 - 115 MMOL/L 08/03/2024 1:43 PM [facility] CO2 22.4 21 - 32 MMOL/L 08/03/2024 1:43 PM [facility] CALCIUM S/P/B 9.3 8.5 - 10.1 MG/DL 08/03/2024 1:43 PM [facility] BILIRUBIN TOTAL S/P/B 0.7 0.2 - 1.2 MG/DL 08/03/2024 1:43 PM [facility] Comment: THIS ASSAY IS NOT RECOMMENDED FOR PATIENTS UNDERGOING TREATMENT WITH ELTROMBOPAG DUE TO THE POTENTIAL FOR FALSELY ELEVATED RESULTS. TOTAL PROTEIN S/P/B 7.3 6.4 - 8.2 G/DL 08/03/2024 1:43 PM [facility] ALBUMIN S/P/B 3.6 3.4 - 5.0 G/DL 08/03/2024 1:43 PM [facility] AST 18 15 - 37 U/L 08/03/2024 1:43 PM [facility] ALT 34 14 - 55 U/L 08/03/2024 1:43 PM [facility] ALKALINE PHOSPHATASE S/P/B 91 50 - 136 U/L 08/03/2024 1:43 PM [facility] ANION GAP 5.6 2 - 10 MMOL/L 08/03/2024 1:43 PM [facility] BUN CREATININE RATIO 26.7(H) 6 - 26 08/03/2024 1:43 PM [facility] A/G RATIO 1.0 1.0 - 2.0 RATIO 08/03/2024 1:43 PM [employer]PER[employer] [facility] GFR ESTIMATE >90 >90 ML/MIN/1.7 3 M2 08/03/2024 1:43 PM [employer]PER[employer] [facility] Comment: NOTE: eGFR is not calculated for patients <18 years of age or gender unknown. This is an estimated GFR calculation using the new CKD EPI creatinine equation without race and so does not require a correction factor for race. This estimated GFR should not be used for calculating drug doses. 08/03/2024 1:03 PM SUPER[employer] Tegan Hernandez [facility] Final Resul t Performing Organization Address City/[facility]/ZIP Co de Phone Number [facility] [address] [place] [address], [place] [phone] * CULTURE, BACTERIA, BLOOD (08/03/2024 1:03 PM SUPER[employer]) SPEC DESCRIPTION BLOOD 08/03/2024 12:32 PM SUPER[employer] [facility] SPECIAL REQUESTS NO SPECIAL REQUEST 08/03/2024 12:32 PM SUPER[employer] [facility] CULTURE RESULT NO GROWTH 5 DAYS 08/08/2024 2:34 PM CDT [facility] BLOOD SPECIMEN OBTAINED FOR BLOOD CULTURE / Unknown 08/03/2024 1:03 PM [employer] 08/03/2024 1:10 PM [employer] Tegan HOFFMANP MICROBIOLOGY - GENERAL ORDE RABLES Final Result [facility] [address] [place] [address], [place] [phone] * (ABNORMAL) CBC W/DIFF AUTOMATED (08/03/2024 1:03 PM SUPER[employer]) Only the most recent of4 resultswithin the time period is included. WBC 15.47(H) 4.5 - 11.0 x10'3/uL 08/03/2024 1:17 PM [facility] RBC 4.42 4.20 - 5.40 x10'6/uL 08/03/2024 1:17 PM [facility] HGB 12.0 12.0 - 16.0 G/DL 08/03/2024 1:17 PM [facility] HCT 35.9(L) 38.0 - 48.0 % 08/03/2024 1:17 PM [facility] MCV 81.2 81.0 - 99.0 FL 08/03/2024 1:17 PM [facility] MCH 27.1 27.0 - 31.0 PG 08/03/2024 1:17 PM [facility] MCHC 33.4 32.0 - 36.0 G/DL 08/03/2024 1:17 PM [facility] RDW 13.2 11.5 - 14.5 % 08/03/2024 1:17 PM [facility] PLT 306 130 - 400 x10'3/uL 08/03/2024 1:17 PM [facility] MPV 10.8 9.3 - 12.2 FL 08/03/2024 1:17 PM [facility] DIFFERENTIAL TYPE AUTOMATED DIFFERENTIAL 08/03/2024 1:17 PM [facility] NEUTROPHILS % 82.5 % 08/03/2024 1:17 PM [facility] LYMPHOCYTES % 10.0 % 08/03/2024 1:17 PM [facility] MONOCYTES % 5.8 % 08/03/2024 1:17 PM [employer] [facility] EOSINOPHILS 1.0 % 08/03/2024 1:17 PM [employer] [facility] BASOPHILS 0.3 % 08/03/2024 1:17 PM [employer] [facility] IMMATURE GRANS % 0.4 % 08/04/19 25 1:17 PM [employer]PER[employer] [facility] ABS. NEUTROPHILS 12.76(H) 1.80 - 7.70 x10'3/uL 08/03/2024 1:17 PM [employer] [facility] ABS. LYMPHOCYTES 1.55 1.00 - 4.80 x10'3/uL 08/03/2024 1:17 PM [employer] [facility] ABS. MONOCYTES 0.90(H) 0.24 - 0.86 x10'3/uL 08/03/2024 1:17 PM [employer] [facility] ABS. EOSINOPHILS 0.15 0.04 - 0.36 x10'3/uL 08/03/2024 1:17 PM SUPERVISOR BELT AND LINK ASSEMBLY [facility] ABS. BASOPHILS 0.05 0.01 - 0.08 x10'3/uL 08/03/2024 1:17 PM SUPERVISOR [employer] ASSEMBL[employer] [facility] ABS. IMMATURE GRANULOCYTES 0.06 0.00 - 0.49 x10'3/uL 08/03/2024 1:17 PM SUPERVISOR [employer] ASSEMBL[employer] [facility] 08/03/2024 1:03 PM SUPERVISOR [employer]SEMBL[employer] us Tegan HOFFMANP LABORATORY Final Resul t [facility] [address] [place] [address], [place] [phone] * LIPASE (08/03/2024 1:03 PM SUPERVISOR [employer]INK ASSEMBLY) Only the most recent of4 resultswithin the time period is included. LIPASE 54 13 - 75 UNITS/L 08/03/2024 1:43 PM SUPERVISOR [employer]INK ASSEMBL[employer] [facility] 08/03/2024 1:03 PM SUPERVISOR [employer]SEM[employer] Tegan Hernandez BEEF SPECIALIST LABORATORY Final Resul t [facility] [address] [place] [address], [place] [phone] * POCT urine (06/26/2024 7:39 PM SUPERVISOR [employer]SEM[employer]) URINE HCG TEST NEGATIVE Internal Control: VALID Malinda Palma SCHOLASTIC APTITUDE TEST GRADER POINT OF CARE TEST ORDERABLES Final Result * XR CHEST PORTABLE (06/26/2024 7:34 PM SUPERVISOR [employer]SEM[employer]) Only the most recent of2 resultswithin the time period is included. Anatomical Region Laterality Modality Chest Radiographic Annalise ging 06/26/2024 7:41 PM SUPERVIS[employer] Impressions 06/26/2024 7:42 PM SUPERVIS[employer]BL[employer] =====IMPRESSION:===== No radiographic evidence of active chest disease. Ordered By: MALINDA PALMA Interpreted By: Balta Whitlock MD, 06/26/2024 7:41 PM Narrative 06/26/2024 7:42 PM SUPERVISOR [employer]T [employer] LINK ASSEMBLY [facility] [address] [place], [place] [address] Examination: Chest x-ray 1 view Exam date/time: 06/26/2024 6:31 PM Reason For Exam: abd pain Epigastric pain. History of biliary obstruction. Comparison: 06/06/2024 AP view Technique: Upright AP view of the chest demonstrated. Findings: The cardiac silhouette, mediastinal contours, and pulmonary vessels appear normal. The lungs are clear. No pneumothorax. No consolidations or effusions are seen. No evidence of bronchial wall thickening or abnormal pulmonary interstitium. Right upper quadrant drainage tube visualized. Overall, no radiographic evidence of active chest disease. Procedure Note Balta Whitlock MD - 06/26/[address] [address] Examination: Chest x-ray 1 view Exam date/time: 06/26/2024 6:31 PM Reason For Exam: abd pain Epigastric pain. History of biliary obstruction. Comparison: 06/06/2024 AP view Technique: Upright AP view of the chest demonstrated. Findings: The cardiac silhouette, mediastinal contours, and pulmonaryvessels appear normal. The lungs are clear. No pneumothorax. Noconsolidations or effusions are seen. No evidence of bronchial wallthickening or abnormal pulmonary interstitium. Right upper quadrantdrainage tube visualized. Overall, no radiographic evidence of activechest disease. =====IMPRESSION:===== No radiographic evidence of active chest disease. Ordered By: MALINDA PALMA Interpreted By: Balta Whitlock MD, 06/26/2024 7:41 PM Malnida Palma NP GENERAL IMAGING Final Result * PARTIAL THROMBOPLASTIN TIME,PTT (06/26/2024 6:24 PM SUPERVISOR [employer]SEM[employer]) Only the most recent of2 resultswithin the time period is included. PTT 30.1 25.1 - 36.5 SEC 06/26/2024 7:38 PM SUPERVISOR [employer] ASSEMBLY [facility] 06/26/2024 6:24 PM SUPERVISOR [employer]SEM[employer] Malinda K Louie SCHOLASTIC APTITUDE TEST GRADER LABORATORY Final Result Performing Organization Address City/State/[facility] de Phone Number [facility] [address] [place] [phone], * PROTIME/INR, VENOUS (06/26/2024 6:24 PM SUPERVISOR [employer]SEMBL[employer]) Only the most recent of2 resultswithin the time period is included. PROTIME 12.1 10.2 - 12.9 SEC 06/26/2024 7:38 PM SUPERVISOR [employer] ASSEM[employer]Y [facility] INR 1.1 06/26/2024 7:38 PM SUPERVISOR [employer] ASSEMBLY [facility] Comment: Recommended INR Therapeutic Goals: 2.0-3.0 Routine Therapy 2.5-3.5 Mechanical Prosthetic Valves (High Risk) 06/26/2024 6:24 PM SUPERVISOR [employer] ASSEMBLY Malinda Palma SCHOLASTIC APTITUDE TEST GRADER LABORATORY Final Result Performing Organization Address [facility] de Phone Number [facility] [address] [place] [phone], * IR CHOLANGIOGRAM (06/26/2024 9:30 AM SUPERVISOR [employer]SEM[employer]) Anatomical Region Laterality Modality Abdomen Interventional R adiology, Radiographic Imaging, Radiographic Imaging 06/26/2024 12:1 6 PM SUPER[employer]OR [employer] Impressions 06/26/2024 12:31 PM SUPERVISOR [employer]Y =====IMPRESSION:===== 1. Contracted gallbladder containing gallstones and with cholecystostomy tube in place. 2. Failure of contrast progression through the cystic duct suggesting persistent cystic duct obstruction or stricture. 3. Tube flush results in immediate preferential fluid backflow along the cholecystostomy tube tract, leaking from the cutaneous entry site. Ordered By: MAGGIE DUENAS Interpreted By: Ray Moya MD, 06/26/2024 12:16 PM Narrative 06/26/2024 12:31 PM SUPERVISOR [employer]SEM[employer] [address] [address] Exam date/time: 06/26/2024 9:13 AM Examination: Fluoroscopic cholangiogram Reason For Exam: Percutaneous cholecystostomy check. History of cholecystitis, cholelithiasis and choledocholithiasis. Comparison: 06/07/2024 Fluoroscopy time: 0.7 minutes. Total of 9 images. Findings: Cholecystectomy tube in place, unchanged in position. Isovue contrast was injected through the cholecystostomy tube. With injection of contrast material, there is opacification of the gallbladder lumen, outlining multiple rounded gallstones of intermediate size. The gallbladder is markedly contracted/nondistended. There is immediate preferential contrast backflow along the cholecystostomy tube tract, leaking from the cutaneous entry site. This prevents further distention of the gallbladder with additional contrast injection. There is no contrast opacification of the cystic duct or biliary system. No evidence of bile leak. Subsequently, additional flush with sterile saline was performed to clear the contrast. Again, there is immediate backflow along the cholecystostomy tube tract. Procedure Note Ray Moya MD - 06/26/[address] [address] Exam date/time: 06/26/2024 9:13 AM Examination: Fluoroscopic cholangiogram Reason For Exam: Percutaneous cholecystostomy check. History ofcholecystitis, cholelithiasis and choledocholithiasis. Comparison: 06/07/2024 Fluoroscopy time: 0.7 minutes. Total of 9 images. Findings: Cholecystectomy tube in place, unchanged in position. Isovuecontrast was injected through the cholecystostomy tube. With injection ofcontrast material, there is opacification of the gallbladder lumen,outlining multiple rounded gallstones of intermediate size. Thegallbladder is markedly contracted/nondistended. There is immediatepreferential contrast backflow along the cholecystostomy tube tract,leaking from the cutaneous entry site. This prevents further distention ofthe gallbladder with additional contrast injection. There is no contrastopacification of the cystic duct or biliary system. No evidence of bileleak. Subsequently, additional flush with sterile saline was performed toclear the contrast. Again, there is immediate backflow along thecholecystostomy tube tract. =====IMPRESSION:===== 1. Contracted gallbladder containing gallstones and with cholecystostomytube in place. 2. Failure of contrast progression through the cystic duct suggestingpersistent cystic duct obstruction or stricture. 3. Tube flush results in immediate preferential fluid backflow along thecholecystostomy tube tract, leaking from the cutaneous entry site. Ordered By: MAGGIE DUENAS Interpreted By: Ray Moya MD, 06/26/2024 12:16 PM Maggie Duenas MD INTERVENTIONAL RADIOLOGY Fi nal Result * IR BILIARY CATH CHG (06/07/2024 2:00 PM SUPERVISOR [employer]SEM[employer]) Anatomical Region Laterality Modality Abdomen Interventional R adiology 06/07/2024 2:20 PM SUPERVISOR [employer] Impressions 06/07/2024 3:01 PM SUPERVIS[employer] =====IMPRESSION:===== 1. Right transhepatic 8.5 Palestinian cholecystostomy drainage catheter boby-[id number] exchange performed with fluoroscopy guidance. 2. Limited cholangiogram redemonstrates cholelithiasis. 3. Catheter placed to gravity drainage. Maintained slow regular flushing as needed. 4. Further catheter management and degeneration of catheter to be determined by the surgical service. Ordered By: SOFIE HURLEY Interpreted By: Casper Malave MD, 06/07/2024 2:20 PM Narrative 06/07/2024 3:01 PM SUPERVIS[employer] [address] [id number] Procedure: IR percutaneous cholecystostomy catheter exchange with fluoroscopy Exam Date/Time: 06/07/2024 11:55 PM Indication: Female presenting for cholecystostomy catheter exchange; suspected malfunctioning catheter. Right upper quadrant pain. Patient reports the catheter getting stuck on doorknob and decreased drainage.. Status post cholecystostomy 05/16/2024 for acute cholecystitis. Additional incidental finding of pancreatic neuroendocrine tumor. Comparison: None CT abdomen pelvis 06/06/2024 and prior. Technique: Informed verbal and written consent was obtained from the patient, patient's medical power of claims attorney. The procedure was discussed including the rationale, alternatives, benefits and risks including infection, damage to liver and gallbladder, and, life-threatening bleeding and inability to place a drainage catheter. The procedures performed with a deep sedation with the assistance of anesthesia service due to patient's extreme sensitivity anxiety regarding pain during the procedure. The proximal fall and Versed and fentanyl sedation provided by the anesthesia service. Patient monitored by the anesthesia service. Please refer to the medical chart for details. Patient was brought to the procedure room and placed supine on the fluoroscopy procedure table. Timeout was performed. Indwelling right upper quadrant cholecystostomy drainage catheter and the surrounding skin was thoroughly prepped and draped. Maximum sterile barrier technique including hand hygiene, and skin preparation was employed for the procedure. 1% lidocaine was administered the skin surrounding the catheter exit site. Small volume of dilute contrast was administered gently through the catheter outlining a contracted gallbladder lumen with multiple filling defects compatible with stones. Catheter is appropriately positioned. The catheter was cut releasing the pigtail suture. Stiff Amplatz guidewire was placed through the catheter into the gallbladder, which the existing catheter was removed. A new 8.5 Palestinian locking pigtail drainage catheter was advanced over the wire into the gallbladder. Catheter pigtail position was confirmed and locked. Dilute contrast administration shows the appropriate position of the catheter. Catheter was flushed and placed to gravity drainage to a three-way stopcock and secured to the skin with 2. 0 Ethilon suture. Overlying sterile gauze and dressings. No immediate procedure complication. Patient was transported to the PACU for recovery from anesthesia. Tiger Machine Operator: Dr. Malave Estimated blood loss: None Radiation dose Air Kerma: 5.86 mGy; total 3 sets of fluoroscopic images saved. Procedure Note Casper Malave MD - 06/07/2024 [facility] [address], [place] [address] Procedure: IR percutaneous cholecystostomy catheter exchange withfluoroscopy Exam Date/Time: 06/07/2024 11:55 PM Indication: Female presenting for cholecystostomy catheter exchange;suspected malfunctioning catheter. Right upper quadrant pain. Patientreports the catheter getting stuck on doorknob and decreased drainage..Status post cholecystostomy 05/16/2024 for acute cholecystitis. Additionalincidental finding of pancreatic neuroendocrine tumor. Comparison: None CT abdomen pelvis 06/06/2024 and prior. Technique: Informed verbal and written consent was obtained from thepatient, patient's medical power of claims attorney. The procedure was discussedincluding the rationale, alternatives, benefits and risks includinginfection, damage to liver and gallbladder, and, life-threatening bleedingand inability to place a drainage catheter. The procedures performed with a deep sedation with the assistance ofanesthesia service due to patient's extreme sensitivity anxiety regardingpain during the procedure. The proximal fall and Versed and fentanylsedation provided by the anesthesia service. Patient monitored by theanesthesia service. Please refer to the medical chart for details. Patient was brought to the procedure room and placed supine on thefluoroscopy procedure table. Timeout was performed. Indwelling right upper quadrant cholecystostomy drainage catheter and thesurrounding skin was thoroughly prepped and draped. Maximum sterile barrier technique including hand hygiene, and skinpreparation was employed for the procedure. 1% lidocaine was administered the skin surrounding the catheter exit site.Small volume of dilute contrast was administered gently through thecatheter outlining a contracted gallbladder lumen with multiple fillingdefects compatible with stones. Catheter is appropriately positioned. Thecatheter was cut releasing the pigtail suture. Stiff Amplatz guidewire wasplaced through the catheter into the gallbladder, which the existingcatheter was removed. A new 8.5 Palestinian locking pigtail drainage catheterwas advanced over the wire into the gallbladder. Catheter pigtail positionwas confirmed and locked. Dilute contrast administration shows theappropriate position of the catheter. Catheter was flushed and placed togravity drainage to a three-way stopcock and secured to the skin with 2. 0Ethilon suture. Overlying sterile gauze and dressings. No immediate procedure complication. Patient was transported to the PACUfor recovery from anesthesia. Tiger Machine Operator: Dr. Malave Estimated blood loss: None Radiation dose Air Kerma: 5.86 mGy; total 3 sets of fluoroscopic imagessaved. =====IMPRESSION:===== 1. Right transhepatic 8.5 Palestinian cholecystostomy drainage iqxssydodlkc-vic-usgd exchange performed with fluoroscopy guidance. 2. Limited cholangiogram redemonstrates cholelithiasis. 3. Catheter placed to gravity drainage. Maintained slow regular flushingas needed. 4. Further catheter management and degeneration of catheter to bedetermined by the surgical service. Ordered By: SOFIE HURLEY Interpreted By: Casper Malave MD, 06/07/2024 2:20 PM Sofie Hurley RETAIL CASHIER ASSOCIATE INTERVENTIONAL RADIOLOGY Fi nal Result * STREP A RAPID (06/06/2024 10:45 PM SUPERVISOR [employer] ASSEMBLY) Pathologist [facility] SPECIMEN TYPE THROAT 06/06/2024 10:57 PM SUPERVISOR [employer]T [employer]INK ASSEMBLY [facility] RAPID STREP TEST NEGATIVE NEGATIVE 06/06/2024 11:44 PM SUPERVISOR [employer]INK ASSEMBLY [facility] STRUCTURE OF ANTERIOR PORTION OF NECK / Unknown 06/06/2024 10:45 PM SUPERVISOR [employer] ASSEMBL[employer] Sofie Hurley RETAIL CASHIER ASSOCIATE MICROBIOLOGY - GENERAL ORDE RABLES Final Result [facility] [address] [place] [address], [place] [phone] * RESPIRATORY PCR PANEL 2 (06/06/2024 8:35 PM SUPERVISOR [employer]INK ASSEMBL[employer]) Pathologist [facility] ADENOVIRUS PCR (RESP) NOT DETECTED NOT DETECTED 06/06/2024 10:12 PM SUPERVISOR [employer]T [employer] LINK ASSEMBLY [facility] CORONAVIRUS 229E PCR (RESP) NOT DETECTED NOT DETECTED 06/06/2024 10:12 PM SUPERVISOR [employer]T [employer] LINK ASSEMBLY [facility] CORONAVIRUS HKU1 PCR (RESP) NOT DETECTED NOT DETECTED 06/06/2024 10:12 PM [facility] CORONAVIRUS NL63 PCR (RESP) NOT DETECTED NOT DETECTED 06/06/2024 10:12 PM [facility] CORONAVIRUS OC43 PCR (RESP) NOT DETECTED NOT DETECTED 06/06/2024 10:12 PM [facility] METAPNEUMOVIRUS PCR (RESP) NOT DETECTED NOT DETECTED 06/06/2024 10:12 PM [facility] RHINOVIRUS/ENTEROV IRUS PCR (RESP) NOT DETECTED NOT DETECTED 06/06/2024 10:12 PM [facility] INFLUENZA A PCR (RESP) NOT DETECTED NOT DETECTED 06/06/2024 10:12 PM [facility] INFLUENZA B PCR (RESP) NOT DETECTED NOT DETECTED 06/06/2024 10:12 PM [facility] PARAINFLUENZA 1 PCR (RESP) NOT DETECTED NOT DETECTED 06/06/2024 10:12 PM [facility] PARAINFLUENZA 2 PCR (RESP) NOT DETECTED NOT DETECTED 06/06/2024 10:12 PM [facility] PARAINFLUENZA 3 PCR (RESP) NOT DETECTED NOT DETECTED 06/06/2024 10:12 PM [facility] PARAINFLUENZA 4 PCR (RESP) NOT DETECTED NOT DETECTED 06/06/2024 10:12 PM [facility] RSV PCR (RESP) NOT DETECTED NOT DETECTED 06/06/2024 10:12 PM [facility] B PARAPERTUSIS PCR (RESP) NOT DETECTED NOT DETECTED 06/06/2024 10:12 PM [facility] BORDETELLA PERTUSSIS PCR (RESP) NOT DETECTED NOT DETECTED 06/06/2024 10:12 PM SUPERVISOR [employer]T AND LINK ASSEMBLY [facility] CHLAMYDOPHILA PNEUMONIAE PCR (RESP) NOT DETECTED NOT DETECTED 06/06/2024 10:12 PM SUPERVISOR [employer]T AND LINK ASSEMBLY [facility] MYCOPLASMA PNEUMONIAE PCR (RESP) NOT DETECTED NOT DETECTED 06/06/2024 10:12 PM SUPERVISOR [employer]T AND LINK ASSEMBLY [facility] CORONAVIRUS SARS COV 2 PCR (RESP) NOT DETECTED NOT DETECTED 06/06/2024 10:12 PM SUPERVISOR [employer]T AND LINK ASSEMBLY [facility] NASOPHARYNGEAL SWAB / Unknown 06/06/2024 8:35 PM SUPERVISOR [employer]INK ASSEMBLY us Sofie Hurley RETAIL CASHIER ASSOCIATE MICROBIOLOGY - GENERAL ORDE CATRACHITO Final Result [facility] [address] [place] [address], * ECG 12 lead (06/06/2024 7:34 PM SUPERVISOR [employer] LINK ASSEMBLY) 06/06/2024 7:34 PM SUPERVISOR [employer]T AND LINK ASSEMBLY Narrative [facility] RAD - 06/07/2024 8:48 PM SUPERVISOR [employer]INK ASSEMBLY [address] Test Date: 2024-06-06 Pat Name: PUMA CHEEMA Department: 41 Room: [facility] Gender: Female Instructor Industrial Design: DYAN : 1990 Requested By: SOFIE HURLEY Order Number: [id number] Reading MD: Mirela Horvath Measurements Intervals [place] Rate: 72 P: 44 VA: 156 QRS: 37 QRSD: 93 T: 34 QT: 378 QTc: 414 Interpretive Statements SINUS RHYTHM No previous ECG available for comparison [employer] Procedure Note Mirela Horvath MD - 06/07/[address] Test Date: 2024-06-06 Pat Name: PUMA NAVADONNY Department: 41 Room: C08 Gender: Female Instructor Industrial Design: DYAN : 1990 Requested By: SOFIE HURLEY Order Number: [id number] Reading MD: Mirela Horvath Measurements Intervals [place] Rate: 72 P: 44 VA: 156 QRS: 37 QRSD: 93 T: 34 QT: 378 QTc: 414 Interpretive Statements SINUS RHYTHM No previous ECG available for comparison [employer] us Sofie Hurley RETAIL CASHIER ASSOCIATE ECG ORDERABLES Final Resul t [facility] * HEPATITIS PANEL,ACUTE (04/30/2024 7:53 AM SUPERVISOR [employer] ASSEMBL[employer]) HEPATITIS B SURFACE AG NON-REACTI VE NON-REACTI VE 04/30/2024 9:41 AM SUPERVISOR [employer] LINK ASSEMBLY [facility] HEP B CORE IGM NON-REACTI VE NON-REACTI VE 04/30/2024 9:41 AM SUPERVISOR [employer] LINK ASSEMBLY [facility] HAV IGM NON-REACTI VE NON-REACTI VE 04/30/2024 9:41 AM SUPERVISOR [employer] LINK ASSEMBLY [facility] HEPATITIS C AB NON-REACTI VE NON-REACTI VE 04/30/2024 9:41 AM SUPERVISOR [employer]T [employer] LINK ASSEMBLY [facility] 04/30/2024 7:53 AM SUPERVISOR [employer]INK ASSEMBL[employer] Jace Winters DO LABORATORY Final Result [facility] [address] [place] [address], [place] [phone] from Last 3 Months or Most Recently Relevant to Health Maintenance Insurance [facility] Advance Directives * Full Code (Latest Code Status on File) Date Activated Date Inactivated Comments 06/06/2024 7:18 PM 06/07/2024 8:51 PM * Full Code Date Activated Date Inactivated Comments 05/14/2024 11:16 AM 05/16/2024 7:29 PM * Full Code Date Activated Date Inactivated Comments 04/29/2024 10:49 PM 05/03/2024 12:32 PM * Full Code Date Activated Date Inactivated Comments 09/27/2022 8:25 PM 09/28/2022 3:28 PM Care Teams Supervisor Car Installations Relationship Specialty Start Date End Date Mayco Mixon [place] [address] [place] [address] PCP - General FAMILY PRACTICE 05/04/24
--- NOTE | 2024-08-21 11:44 | PC.NURSE ---
Crisis in to evaluate pt.
[2024-08-21] MEDS: LORazepam (*CRX) 0.5 MG TABLET PO (13:03)
== END 2024-08-21 13:06 | disposition home or self-care (01) ==
PROVIDERS: Emergency Provider Registered Nurse
DX: F41.8 Other specified anxiety disorders (principal); G47.00 Insomnia, unspecified; E86.0 Dehydration; Z11.59 Encounter for screening for other viral diseases
CPT/HCPCS: 36415; 80053; 80307; 81001; 81025; 82077; 84443; 85025; 87635; 99284; A9270